=== PATIENT | female | born 1935 | race Caucasian/White ===

== ENCOUNTER 2017-01-19 14:03 | Inpatient (IN) | payer MEDICARE, OTHER ==
[2017-01-19] MEDS ORDERED: Morphine INJ* 2 MG/ML 1 ML CARPUJECT IV ONE (16:57)
[2017-01-19] MEDS ORDERED: NS 0.9% 1000 ML* 2,000 ML IV ONE (16:57)
[2017-01-19 17:40] LABS: Hematocrit 30 % (35-47); Hemoglobin 9.2 g/dl (12.0-16.0); Mean Corpuscular HGB Conc 31 g/dl (31-36); Mean Corpuscular Hemoglobin 22 pg (27-31); Mean Corpuscular Volume 69 fL (80-97); Mean Platelet Volume 7 um3 (7.4-10.4); Red Blood Count 4.27 10^6/ul (4.0-5.4); Red Cell Distribution Width 19 % (10.5-15); White Blood Count 25.9 10^3/ul (3.5-10.8)
[2017-01-19 17:41] LABS: Comments Flag Yes
[2017-01-19 17:42] LABS: Add Diff/Slide Review? Slide Review Added
[2017-01-19 17:56] LABS: Albumin 3.8 g/dL (3.2-5.2); BUN/Creatinine Ratio 25.4 (8-20); Calcium 9.6 mg/dL (8.6-10.3); EGFR African American 56.3 (>60); EGFR Non-African American 43.7 (>60); Total Bilirubin 0.5 mg/dL (0.2-1.0); Total Protein 7.8 g/dL (6.4-8.9); Troponin I 0.03 ng/mL (<0.04)
[2017-01-19] MEDS ORDERED: Iodixanol* (CONTRAST) 320 MG/ML 100 ML SDV IV ONE (17:57)
[2017-01-19 17:58] LABS: Potassium 2.3 mmol/L (3.5-5.0)
[2017-01-19] MEDS ORDERED: Ondansetron INJ* 2 MG/ML VIAL IV ONE (18:55)
[2017-01-19] MEDS ORDERED: Ondansetron INJ* 2 MG/ML VIAL ONE (18:57)
[2017-01-19] MEDS: KCL 10 MEQ/50 ML IVPREMIX* 10 MEQ/50 ML BAG IV SCH ×3 (19:01→23:13)
[2017-01-19] MEDS ORDERED: Potassium Chlor TAB* 20 MEQ TAB.ER PO ONE (19:42)
[2017-01-19] MEDS ORDERED: NS 0.9% 1000 ML* 1,000 ML IV SCH (19:45)
[2017-01-19] MEDS ORDERED: hydrALAZINE IV* 20 MG/ML VIAL IV SLOW PU ONE (19:47)
--- NOTE | 2017-01-19 19:47 | RAD ---
indication: Neck pain and vomiting after a fall COMPARISON: None A CT scan of the brain and c-spine was performed without intravenous contrast enhancement. Contiguous axial sections were obtained from the lung apices through the vertex. BRAIN: The ventricles, cisterns and sulci exhibit age-appropriate involutional changes. There is mild periventricular and subcortical white matter hypoattenuation most consistent with chronic microvascular disease. No significant focal abnormality or mass effect is seen. The fofana-white differentiation is adequately maintained. There is calcified atherosclerosis of the vertebral arteries and petrous carotid arteries. There is no evidence for intracranial hemorrhage. No significant bony abnormality is present. The mastoid air cells are hypoplastic bilaterally but there is no definite mastoid air cell effusion. The visualized paranasal sinuses are clear. C-SPINE: On the sagittal plane images there is straightening of the normal cervical lordosis. Multilevel degenerative changes of the cervical spine include loss of intervertebral disc height and exuberant marginal osteophyte formation. This most severely affect C5/C6 and C6/C7. There is uncovertebral hypertrophy also predominantly at C5/C6 and C6/C7. There is no hyperdense material in the cervical canal to indicate hemorrhage. The visualized musculature and soft tissues are normal. There is no gross lymphadenopathy visualized. There is coarse atherosclerotic calcification at the bilateral carotid bulbs. The visualized portion of the lung apices are clear. IMPRESSION: 1. No calvarial fracture or acute intracranial hemorrhage. 2. No acute fracture or dislocation of the cervical spine. 3. There are age-appropriate chronic appearing and degenerative changes involving the brain and C-spine described in the body the report.
[2017-01-19] MEDS ORDERED: Ibuprofen TAB* 600 MG PO PRN (19:49)
--- NOTE | 2017-01-19 20:03 | RAD ---
INDICATION: Sternal tenderness and left rib pain after a fall. COMPARISON: None TECHNIQUE: Axial source images of the chest were acquired after the injection of 80 mL of Visipaque 320 intravenous contrast from just above the lung apices to the base of the diaphragm. Coronal and sagittal reconstructed images were acquired. FINDINGS: The heart is normal in size. There is no evidence of pericardial effusion. There is no evidence of aortic aneurysm or dissection. There is calcification at the mitral valve, coronary arteries and at the arch of the aorta. There is no mediastinal, hilar, or axillary lymphadenopathy. At the lateral aspect of the right upper lobe (image 22 of 54) there is a 1.6 cm groundglass density. This is immediately adjacent to a rib fracture at this site. At the lateral aspect of the right lower lobe (image 41) there is a 3 mm pulmonary nodule. There are hypoventilatory changes in the bilateral lung bases. The lungs are otherwise grossly clear. Multilevel degenerative changes of the thoracic spine includes loss of intervertebral disc height and marginal osteophyte formation there is chronic appearing compression deformity of the T10 vertebral body. The sternum appears to be intact. There is a chronic appearing deformity at the lateral aspect of the fifth right rib in close proximity to an area of groundglass density the lung. To a lesser extent there is a similar deformity of the lateral right sixth rib. No grossly displaced acute rib fractures are identified. There is circumferential thickening of the lower esophagus measuring up to 8 mm in thickness (image 23 for example). IMPRESSION: 1. There are subacute to chronic appearing rib fractures involving the lateral right fifth and sixth ribs. Please correlate to physical examination. 2. Immediately subjacent to these distorted ribs is a 1.6 cm focus of groundglass density in the lateral aspect of the right upper lobe. Potentially this represents pulmonary contusion from prior traumatic injury. Less likely this could be a groundglass lesion secondary to infection, inflammation or neoplasm. 3. Circumferential thickening of the lower esophagus up to 8 mm in thickness. Please correlate to signs and symptoms of esophagitis. A potential esophageal neoplasm is not excluded on this imaging alone.
--- NOTE | 2017-01-19 20:36 | RAD ---
INDICATION: Left shoulder pain after a fall COMPARISON: None. TECHNIQUE: 5 views of the left shoulder were obtained. FINDINGS: The adequately corticated bones are in normal alignment. Degenerative changes of the glenohumeral joint include mild sclerotic change of the bony surface of the glenoid.. No fracture, dislocation or focal bony abnormality is seen. IMPRESSION: DEGENERATIVE CHANGES OF THE LEFT SHOULDER WITHOUT RADIOGRAPHICALLY APPARENT FRACTURE OR DISLOCATION. If the patient's symptoms persist, follow-up imaging is recommended.
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
[2017-01-19] MEDS: Ciprofloxacin TAB* 500 MG PO SCH (22:55)
[2017-01-19] MEDS: Ondansetron INJ* 2 MG/ML VIAL IV PRN (22:55)
[2017-01-19] MEDS: Heparin VIAL(*) 5000 UNITS/ML VIAL (FIVE THOUSAND) SUBCUT SCH (22:55)
[2017-01-19] MEDS: Acetaminophen TAB* 325 MG PO PRN (22:55)
[2017-01-20 06:13] LABS: Hematocrit 25 % (35-47); Hemoglobin 7.7 g/dl (12.0-16.0); Mean Corpuscular HGB Conc 31 g/dl (31-36); Mean Corpuscular Hemoglobin 22 pg (27-31); Mean Platelet Volume 7 um3 (7.4-10.4); Red Blood Count 3.56 10^6/ul (4.0-5.4); Red Cell Distribution Width 19 % (10.5-15)
[2017-01-20 06:14] LABS: Comments Flag Yes
[2017-01-20 06:15] LABS: Mean Corpuscular Volume 70 fL (80-97)
[2017-01-20] MEDS: Heparin VIAL(*) 5000 UNITS/ML VIAL (FIVE THOUSAND) SUBCUT SCH ×3 (06:16→21:36)
[2017-01-20 06:40] LABS: Anion Gap 11 mmol/L (2-11); BUN/Creatinine Ratio 30.2 (8-20); Blood Urea Nitrogen 26 mg/dL (6-24); CO2 Carbon Dioxide 17 mmol/L (22-32); Calcium 8.2 mg/dL (8.6-10.3); Chloride 103 mmol/L (101-111); Glucose 116 mg/dL (70-100); Potassium 3.3 mmol/L (3.5-5.0); Sodium 131 mmol/L (133-145)
[2017-01-20 06:43] LABS: Total Iron Binding Capacity 302 mcg/dL (250-450); Transferrin 216 mg/dL (203-362)
[2017-01-20 06:46] LABS: Iron < 15 ug/dL (50-212)
[2017-01-20 07:05] LABS: Ferritin 24.8 ng/mL (11-307)
[2017-01-20 07:26] LABS: Urine Bacteria Absent (Absent); Urine Bilirubin Negative (Negative); Urine Glucose Negative (Negative); Urine Nitrite Negative (Negative)
--- NOTE | 2017-01-20 07:51 | PN ---
Subjective - Subjective Reason for Note: Progress Note History: I have reviewed Xochitl Ma's presentation with the patient and Dr. Manuel Martínez's history and physical. The main discrepancy is that she denies loss of consciousness after her first fall, whereas the narrative supplemented by her son suggested she did. I note she had vomiting for 2 days afterwards. Today she continues to have pain in her left shoulder and arm. Her head is tender, but she has no headache. She denies any fatigue, altered cognition and wonders if she can go home. She denies fevers, sweats, cough, sputum, urinary symptoms. She denies any infection. She does have anorexia Active Problems: Active Problems Acute neutrophilia (Acute) D72.828 Concussion (Acute) S06.0X9A Electrolyte abnormality (Acute) E87.8 Head injury (Acute) S09.90XA History of falling (Acute) Z91.81 Injury of left shoulder (Acute) S49.92XA Irregular heart rhythm (Acute) I49.9 Right rib fracture (Acute) S22.31XA Thickening of esophagus (Acute) K22.8 Troponin I above reference range (Acute) R74.8 Vomiting (Acute) R11.10 Essential hypertension (Chronic) I10 Hypercholesterolemia (Chronic) E78.00 Type 2 diabetes mellitus (Chronic) Current Medications: Current Medications Acetaminophen (Tylenol Tab*) 650 mg PO Q6H PRN PRN Reason: PAIN Last Admin: 01/19/17 22:55 Dose: 650 mg Amlodipine Besylate (Norvasc Tab*) 10 mg PO DAILY [facility] Ciprofloxacin (Cipro Tab*) 500 mg PO Q24H [facility] Last Admin: 01/19/17 22:55 Dose: 500 mg Heparin Sodium (Porcine) (Heparin Vial(*)) 5,000 units SUBCUT Q8HR [facility] Last Admin: 01/20/17 06:16 Dose: 5,000 units Sodium Chloride (Ns 0.9% 1000 Ml*) 1,000 mls @ 125 mls/hr IV PER RATE [facility] Stop: 01/21/17 03:44 Last Admin: 01/20/17 02:42 Dose: 125 mls/hr Ibuprofen (Motrin Tab*) 600 mg PO Q8H PRN PRN Reason: PAIN Ondansetron HCl (Zofran Inj*) 4 mg IV Q4H PRN PRN Reason: NAUSEA/VOMITING Last Admin: 01/19/17 22:55 Dose: 4 mg - Review of Systems Constitutional Symptoms: No: Fatigue, Fever, Night Sweats Dermatology: Rash: No Eyes: Negative: Change in Vision, Double Vision Pulmonary: Negative: Cough, Sputum, Respiratory Distress, Shortness of Breath Cardiology: Negative: Chest Pain, Palpitations, Swelling of Ankles Gastroenterology: Positive: Anorexia Negative: Abdominal Pain, Nausea, Vomiting, Constipation, Diarrhea, Change in Bowel Habits Genital - Urinary: Negative: Dysuria, Polyuria Home Medications: Home Medications Medication Instructions Recorded Confirmed Type Ibuprofen TAB* [Motrin TAB*] 600 mg PO BID 10/29/12 01/19/17 History Allergies: Allergies Allergy/AdvReac Type Severity Reaction Status Date / Time No Known Allergies Allergy Verified 10/29/12 11:40 Objective - Vital Signs Vital Signs: Vital Signs 01/19/17 01/19/17 01/19/17 20:24 21:00 21:28 Temperature Pulse Rate 104 108 Respiratory 24 28 Rate Blood Pressure 143/59 (mmHg) O2 Sat by Pulse 96 96 Oximetry 01/19/17 01/19/17 01/20/17 22:00 22:14 04:44 Temperature 98.3 F 98.1 F Pulse Rate 88 98 Respiratory 18 16 Rate Blood Pressure 150/54 141/63 (mmHg) O2 Sat by Pulse 98 99 98 Oximetry - Intake and Output Intake and Output: Intake & Output 01/17/17 01/18/17 01/19/17 01/20/17 11:59 11:59 11:59 11:59 Intake Total 876 Balance 876 Weight 129 lb 9.6 oz Intake: IV Fluids 636 NS (0.9%) 516 Oral 240 Other: Estimated Void Medium # Bowel Movements 0 # Voids 3 ADLs: Meal Record Start: 01/19/17 20: 55 Freq: DAILY@0900,1400,1800 Status: Active Created 01/19/17 20:55 System (Rec: 01/19/17 20:55 System [id number]) Intake and Output Start: 01/19/17 14: 13 Freq: Status: Active Created 01/19/17 14:13 System (Rec: 01/19/17 14:13 System [id number]) Intake and Output Start: 01/19/17 20: 55 Freq: DAILY@0600,1400,2200 Status: Active Created 01/19/17 20:55 System (Rec: 01/19/17 20:55 System [id number]) Document 01/20/17 05:20 [id number] (Rec: 01/20/17 05:21 [id number]) - Physical Exam General Physical Exam Comment: She has tenderness on her scalp from injury. She is not using her left arm. General: No Cyanosis, Yes Anemia, No Jaundice, No Clubbing Skin: Normal: Rash Lungs and Chest: Yes: Chest Expansion Full, Chest Expansion Symetrica, Percussion Note Resonant, Vessicular Breath Sounds. No: Crackles, Wheezes, Respiratory Distress, Use of Accessory Muscles Heart Rate and Rhythm: Regular Additional Cardiovascular: Yes: Normal Heart Sounds. No: Heart Murmur, Carotid Bruits, Pedal Edema Abdominal Exam: Yes: Soft, Bowel Sounds Present. No: Distention, Abdominal Mass , Hepatomegaly, Abdominal Tenderness - Extremities Cranial Nerves II-XII Intact: Yes Limbs: Normal Power, Normal Tone, Normal Coordination - Neuro Orientation: A/O x3 Speech: Normal Results - Results Lab Results: Laboratory Results - last 24 hr 01/19/17 01/19/17 01/19/17 21:04 21:04 22:25 WBC RBC Hgb Hct MCV MCH MCHC RDW Plt Count MPV Neut % (Auto) Lymph % (Auto) [place] % (Auto) Eos % (Auto) Baso % (Auto) Absolute Neuts (auto) Absolute Lymphs (auto) Absolute Monos (auto) Absolute Eos (auto) Absolute Basos (auto) Absolute Nucleated RBC Nucleated RBC % Sodium Potassium Chloride Carbon Dioxide Anion Gap BUN Creatinine Est GFR ( Amer) Est GFR (Non-Af Amer) BUN/Creatinine Ratio Glucose Lactic Acid 0.9 Calcium Iron TIBC % Saturation Unsat Iron Binding Ferritin Troponin I 0.03 Urine Color Yellow Urine Appearance Cloudy Urine pH 6.0 Ur Specific [place] 1.045 H Urine Protein 2+(100 mg/dl) H Urine Ketones 1+ H Urine Blood Negative Urine Nitrate Negative Urine Bilirubin Negative Urine Urobilinogen Negative Ur Leukocyte Esterase 1+ H Urine WBC (Auto) 2+(11-20/hpf) H Urine RBC (Auto) 1+(3-5/hpf) H Ur Squamous Epith Cells Present H Urine Bacteria Absent Urine Glucose Negative 01/20/17 01/20/17 01/20/17 05:54 05:54 05:54 WBC 20.0 H RBC 3.56 L Hgb 7.7 L Hct 25 L MCV 70 L MCH 22 L MCHC 31 RDW 19 H Plt Count 432 MPV 7 L Neut % (Auto) 86.6 H Lymph % (Auto) 6.7 L [place] % (Auto) 6.4 Eos % (Auto) 0 Baso % (Auto) 0.3 Absolute Neuts (auto) 17.3 H Absolute Lymphs (auto) 1.3 Absolute Monos (auto) 1.3 H Absolute Eos (auto) 0 Absolute Basos (auto) 0.1 Absolute Nucleated RBC 0 Nucleated RBC % 0 Sodium 131 L Potassium 3.3 L Chloride 103 Carbon Dioxide 17 L Anion Gap 11 BUN 26 H Creatinine 0.86 Est GFR ( Amer) 81.0 Est GFR (Non-Af Amer) 63.0 BUN/Creatinine Ratio 30.2 H Glucose 116 H Lactic Acid Calcium 8.2 L Iron < 15 L TIBC 302 % Saturation 5 L Unsat Iron Binding [phone] Ferritin 24.8 Troponin I 0.05 H* Urine Color Urine Appearance Urine pH Ur Specific [place] Urine Protein Urine Ketones Urine Blood Urine Nitrate Urine Bilirubin Urine Urobilinogen Ur Leukocyte Esterase Urine WBC (Auto) Urine RBC (Auto) Ur Squamous Epith Cells Urine Bacteria Urine Glucose Radiology Results: Patient Name: SIMONE MA Medical Record#: [id number] Ordering Physician: Chuck Alvarado MD Acct.#: [id number] : 1935 Age: 81 Sex: F Location: EMERGENCY DEPARTMENT Exam Date: 01/19/171654 ADM Status: REG ER Order Information: CT CHEST W Accession Number: [id number] CPT: 69479 INDICATION: Sternal tenderness and left rib pain after a fall. COMPARISON: None TECHNIQUE: Axial source images of the chest were acquired after the injection of 80 mL of Visipaque 320 intravenous contrast from just above the lung apices to the base of the diaphragm. Coronal and sagittal reconstructed images were acquired. FINDINGS: The heart is normal in size. There is no evidence of pericardial effusion. There is no evidence of aortic aneurysm or dissection. There is calcification at the mitral valve, coronary arteries and at the arch of the aorta. There is no mediastinal, hilar, or axillary lymphadenopathy. At the lateral aspect of the right upper lobe (image 22 of 54) there is a 1.6 cm groundglass density. This is immediately adjacent to a rib fracture at this site. At the lateral aspect of the right lower lobe (image 41) there is a 3 mm pulmonary nodule. There are hypoventilatory changes in the bilateral lung bases. The lungs are otherwise grossly clear. Multilevel degenerative changes of the thoracic spine includes loss of intervertebral disc height and marginal osteophyte formation there is chronic appearing compression deformity of the T10 vertebral body. The sternum appears to be intact. There is a chronic appearing deformity at the lateral aspect of the fifth right rib in close proximity to an area of groundglass density the lung. To a lesser extent there is a similar deformity of the lateral right sixth rib. No grossly displaced acute rib fractures are identified. There is circumferential thickening of the lower esophagus measuring up to 8 mm in thickness (image 23 for example). IMPRESSION: 1. There are subacute to chronic appearing rib fractures involving the lateral right fifth and sixth ribs. Please correlate to physical examination. 2. Immediately subjacent to these distorted ribs is a 1.6 cm focus of groundglass density in the lateral aspect of the right upper lobe. Potentially this represents pulmonary contusion from prior traumatic injury. Less likely this could be a groundglass lesion secondary to infection, inflammation or neoplasm. 3. Circumferential thickening of the lower esophagus up to 8 mm in thickness. Please correlate to signs and symptoms of esophagitis. A potential esophageal neoplasm is not excluded on this imaging alone. <Electronically signed by Sam Vanegas MD in [place]> 01/19/171958 Dictated By: Sam Vanegas MD Dictated Date/Time: 01/19/171958 Transcribed Date/Time: 01/19/171950 1 of 2 Patient Name: SIMONE MA Medical Record#: [id number] Ordering Physician: Chuck Alvarado MD Acct.#: [id number] : 1935 Age: 81 Sex: F Location: EMERGENCY DEPARTMENT Exam Date: 01/19/171654 ADM Status: REG ER Order Information: CT SPINE CERVICAL W/O Accession Number: [id number] CPT: 19869 indication: Neck pain and vomiting after a fall COMPARISON: None A CT scan of the brain and c-spine was performed without intravenous contrast enhancement. Contiguous axial sections were obtained from the lung apices through the vertex. BRAIN: The ventricles, cisterns and sulci exhibit age-appropriate involutional changes. There is mild periventricular and subcortical white matter hypoattenuation most consistent with chronic microvascular disease. No significant focal abnormality or mass effect is seen. The fofana-white differentiation is adequately maintained. There is calcified atherosclerosis of the vertebral arteries and petrous carotid arteries. There is no evidence for intracranial hemorrhage. No significant bony abnormality is present. The mastoid air cells are hypoplastic bilaterally but there is no definite mastoid air cell effusion. The visualized paranasal sinuses are clear. C-SPINE: On the sagittal plane images there is straightening of the normal cervical lordosis. Multilevel degenerative changes of the cervical spine include loss of intervertebral disc height and exuberant marginal osteophyte formation. This most severely affect C5 /C6 and C6/C7. There is uncovertebral hypertrophy also predominantly at C5/C6 and C6/C7. There is no hyperdense material in the cervical canal to indicate hemorrhage. The visualized musculature and soft tissues are normal. There is no gross lymphadenopathy visualized. There is coarse atherosclerotic calcification at the bilateral carotid bulbs. The visualized portion of the lung apices are clear. IMPRESSION: 1. No calvarial fracture or acute intracranial hemorrhage. 2. No acute fracture or dislocation of the cervical spine. 3. There are age-appropriate chronic appearing and degenerative changes involving the brain and C-spine described in the body the report. <Electronically signed by Sam Vanegas MD in [facility]> 01/19/171942 Dictated By: Sam Vanegas MD Dictated Date/Time: 01/19/171942 Transcribed Date/Time: 01/19/171935 1 of 2 Patient Name: SIMONE MA Medical Record#: [id number] Ordering Physician: Chuck Alvarado MD Acct.#: [id number] : 1935 Age: 81 Sex: F Location: [address] [place] [address] MEDICAL Exam Date: 01/19/171655 ADM Status: ADM Cathi Order Information: SHOULDER LEFT 2+ VWS Accession Number: [id number] CPT: 52947 INDICATION: Left shoulder pain after a fall COMPARISON: None. TECHNIQUE: 5 views of the left shoulder were obtained. FINDINGS: The adequately corticated bones are in normal alignment. Degenerative changes of the glenohumeral joint include mild sclerotic change of the bony surface of the glenoid.. No fracture, dislocation or focal bony abnormality is seen. IMPRESSION: DEGENERATIVE CHANGES OF THE LEFT SHOULDER WITHOUT RADIOGRAPHICALLY APPARENT FRACTURE OR DISLOCATION. If the patient's symptoms persist, follow-up imaging is recommended. <Electronically signed by Sam Vanegas MD in [facility]> 01/19/172032 Dictated By: Sam Vanegas MD Dictated Date/Time: 01/19/172032 Transcribed Date/Time: 01/19/172031 Copy to: CC:Jamey Goncalves MD; Chuck Alvarado MD; Manuel Martínez MD Imaging - [facility] Imaging - [place] [facility] [address] [place] [address] ph [phone]) ph ([phone]) ph ([phone]) 1 of EKG Report: KS 100 QTc 502 QRS 11 Irregular rhythm with narrow complexes. She has abnormal repolarization and prolonged QTc. There appear to be P waves. This is a sinus arrhythmia. Assessment - Problem List Assessment: Patient Problems Acute neutrophilia (Acute) Concussion (Acute) Electrolyte abnormality (Acute) Head injury (Acute) History of falling (Acute) Injury of left shoulder (Acute) Irregular heart rhythm (Acute) Right rib fracture (Acute) Thickening of esophagus (Acute) Troponin I above reference range (Acute) Vomiting (Acute) Essential hypertension (Chronic) Hypercholesterolemia (Chronic) Type 2 diabetes mellitus (Chronic) Plan: Concussion (Acute)Head injury (Acute)History of falling (Acute) She has had 2 falls, both of which were mechanical. She sustained injuries during her first fall. The second fall she describes as minor. I observed her walking to and fro the bathroom - she managed with a walker, but was very unsteady during her transfer. She has no focal signs of stroke. The vomiting following her fall indicates a concussion. Injury of left shoulder (Acute) There is no fracture, but this is sore. She is not using her left arm. Irregular heart rhythm (Acute) I think this is a sinus dysrhythmia - I can see P waves. I will repeat her EKG Right rib fracture (Acute) She has little pain - there may be a lung contusion Thickening of esophagus (Acute) She has had weight loss - on 06/10/2016 she was 135 lbs. I will check a CEA Neutrophilia: She has a markedly elevated WBC - this came down a little overnight. This may be a response to her injuries, or reflect an underlying infection. Electrolyte abnormality: This likely is due to her vomiting and anorexia - it is correcting. She has no focal symptoms. A urine sample has not been taken. She is receiving empiric therapy with ciprofloxacin Troponin I above reference range (Acute) This is a minor elevation. She has no cardiac symptoms. I suspect this is a result of her fall Vomiting (Acute) This has ceased, but she continues to have anorexia. Essential hypertension (Chronic) Her BP is controlled Hypercholesterolemia (Chronic) secondary diagnosis Type 2 diabetes mellitus (Chronic) This is normal this morning - she is usually not on any medications for this Resuscitation status: She wishes to be full code. I discussed the above with the patient and I called her son Manuel, but he didn 't order picker/assembler. She requires at least another 24 hours of acute hospital admission owing to electrolyte abnormalities, cardiac abnormalities.
[2017-01-20] MEDS: Ondansetron INJ* 2 MG/ML VIAL IV PRN (08:53)
[2017-01-20] MEDS: Acetaminophen TAB* 325 MG PO PRN ×3 (08:54→21:36)
[2017-01-20] MEDS: amLODIPine TAB* 5 MG PO SCH (08:54)
--- NOTE | 2017-01-20 08:56 | RAD ---
HISTORY: Left elbow injury COMPARISONS: None VIEWS: 3, Frontal, lateral, and oblique views of the left elbow FINDINGS: The study is somewhat technically limited. BONE DENSITY: Normal. BONES: There is no displaced fracture. JOINTS: There is no arthropathy. ALIGNMENT: There is no dislocation. SOFT TISSUES: Unremarkable. OTHER FINDINGS: None. IMPRESSION: NO ACUTE OSSEOUS INJURY. IF SYMPTOMS PERSIST, RECOMMEND REPEAT IMAGING.
[2017-01-20 12:16] LABS: Urine Bacteria Absent (Absent); Urine Bilirubin Negative (Negative); Urine Glucose Negative (Negative); Urine Nitrite Negative (Negative)
[2017-01-20] MEDS: NS 0.9% 1000 ML* 1,000 ML IV SCH ×2 (13:00→23:55)
[2017-01-20] MEDS: Ciprofloxacin TAB* 500 MG PO SCH (21:36)
[2017-01-21] MEDS: Heparin VIAL(*) 5000 UNITS/ML VIAL (FIVE THOUSAND) SUBCUT SCH ×2 (06:06→17:05)
[2017-01-21 06:07] LABS: Hematocrit 22 % (35-47); Hemoglobin 6.7 g/dl (12.0-16.0); Mean Corpuscular HGB Conc 31 g/dl (31-36); Mean Corpuscular Hemoglobin 22 pg (27-31); Mean Platelet Volume 6 um3 (7.4-10.4); Red Blood Count 3.05 10^6/ul (4.0-5.4); Red Cell Distribution Width 19 % (10.5-15); White Blood Count 12.4 10^3/ul (3.5-10.8)
[2017-01-21 06:18] LABS: Comments Flag Yes; Mean Corpuscular Volume 71 fL (80-97)
[2017-01-21 06:20] LABS: Add Diff/Slide Review? Slide Review Added
[2017-01-21 06:23] LABS: Albumin 2.8 g/dL (3.2-5.2); BUN/Creatinine Ratio 19.5 (8-20); C Reactive Protein 65.06 mg/L (< 5.00); Calcium 8.3 mg/dL (8.6-10.3); Direct Bilirubin 0.1 mg/dL (0.03-0.18); EGFR African American 92.1 (>60); EGFR Non-African American 71.6 (>60); Indirect Bilirubin 0.2 mg/dL (0.3-1.0); Potassium 3.5 mmol/L (3.5-5.0); Total Bilirubin 0.3 mg/dL (0.2-1.0); Total Protein 5.8 g/dL (6.4-8.9)
--- NOTE | 2017-01-21 07:51 | PN ---
Subjective - Subjective Reason for Note: Discharge Note Active Problems: Active Problems Acute neutrophilia (Acute) D72.828 Concussion (Acute) S06.0X9A Electrolyte abnormality (Acute) E87.8 Head injury (Acute) S09.90XA History of falling (Acute) Z91.81 Injury of left shoulder (Acute) S49.92XA Irregular heart rhythm (Acute) I49.9 Right rib fracture (Acute) S22.31XA Thickening of esophagus (Acute) K22.8 Troponin I above reference range (Acute) R74.8 Vomiting (Acute) R11.10 Essential hypertension (Chronic) I10 Hypercholesterolemia (Chronic) E78.00 Type 2 diabetes mellitus (Chronic) Current Medications: Current Medications Acetaminophen (Tylenol Tab*) 650 mg PO Q6H PRN PRN Reason: PAIN Last Admin: 01/20/17 21:36 Dose: 650 mg Amlodipine Besylate (Norvasc Tab*) 10 mg PO DAILY [facility] Last Admin: 01/20/17 08:54 Dose: 10 mg Ciprofloxacin (Cipro Tab*) 500 mg PO Q24H [facility] Last Admin: 01/20/17 21:36 Dose: 500 mg Heparin Sodium (Porcine) (Heparin Vial(*)) 5,000 units SUBCUT Q8HR [facility] Last Admin: 01/21/17 06:06 Dose: 5,000 units Sodium Chloride (Ns 0.9% 1000 Ml*) 1,000 mls @ 70 mls/hr IV PER RATE [facility] Stop: 01/21/17 22:37 Last Admin: 01/20/17 23:55 Dose: 70 mls/hr Ibuprofen (Motrin Tab*) 600 mg PO Q8H PRN PRN Reason: PAIN Last Admin: 01/20/17 20:15 Dose: 600 mg Ondansetron HCl (Zofran Inj*) 4 mg IV Q4H PRN PRN Reason: NAUSEA/VOMITING Last Admin: 01/20/17 08:53 Dose: 4 mg Home Medications: Home Medications Medication Instructions Recorded Confirmed Type Ibuprofen TAB* [Motrin TAB*] 600 mg PO BID 10/29/12 01/19/17 History Allergies: Allergies Allergy/AdvReac Type Severity Reaction Status Date / Time No Known Allergies Allergy Verified 10/29/12 11:40 Objective - Vital Signs Vital Signs: Vital Signs 01/20/17 01/20/17 01/20/17 15:23 20:00 20:23 Temperature 98.3 F 98.3 F Pulse Rate 102 98 Respiratory 18 16 16 Rate Blood Pressure 150/59 149/67 (mmHg) O2 Sat by Pulse 97 97 97 Oximetry 01/20/17 01/21/17 23:24 05:57 Temperature 98.0 F 97.9 F Pulse Rate 93 86 Respiratory 16 16 Rate Blood Pressure 123/97 146/57 (mmHg) O2 Sat by Pulse 96 98 Oximetry - Intake and Output Intake and Output: Intake & Output 01/18/17 01/19/17 01/20/17 01/21/17 11:59 11:59 11:59 11:59 Intake Total 470 2873 Output Total 3750 Balance 470 -877 Intake: IV Fluids 2033 NS (0.9%) 1353 Oral 470 840 Output: Urine 3750 Other: # Bowel Movements 0 Estimated Stool Amount Small ADLs: Meal Record Start: 01/19/17 20: 55 Freq: DAILY@0900,1400,1800 Status: Active Created 01/19/17 20:55 System (Rec: 01/19/17 20:55 System [id number]) Document 01/20/17 09:00 [id number] (Rec: 01/20/17 10:42 [id number] MED-C09) Document 01/20/17 14:00 [id number] (Rec: 01/20/17 14:28 [id number] MED-C11) Document 01/20/17 18:00 [id number] (Rec: 01/20/17 18:40 [id number] MED-C11) Intake and Output Start: 01/19/17 14: 13 Freq: Status: Active Created 01/19/17 14:13 System (Rec: 01/19/17 14:13 System ED-C19) Intake and Output Start: 01/19/17 20: 55 Freq: DAILY@0600,1400,2200 Status: Active Created 01/19/17 20:55 System (Rec: 01/19/17 20:55 System MED-M02) Document 01/20/17 05:20 [id number] (Rec: 01/20/17 05:21 [id number] MEDL-C01) Document 01/20/17 14:00 [id number] (Rec: 01/20/17 14:28 [id number] MED-C11) Document 01/20/17 22:00 [id number] (Rec: 01/20/17 22:30 [id number] [facility]-C11) Document 01/21/17 04:16 [id number] (Rec: 01/21/17 04:16 [id number] [facility]-C04) Results - Results Lab Results: Laboratory Results - last 24 hr 01/20/17 01/20/17 01/21/17 11:55 16:46 05:59 WBC 12.4 H RBC 3.05 L Hgb 6.7 L Hct 22 L MCV 71 L MCH 22 L MCHC 31 RDW 19 H Plt Count 392 MPV 6 L Neut % (Auto) 80.2 Lymph % (Auto) 12.0 L [place] % (Auto) 7.4 Eos % (Auto) 0.2 Baso % (Auto) 0.2 Absolute Neuts (auto) 9.9 H Absolute Lymphs (auto) 1.5 Absolute Monos (auto) 0.9 H Absolute Eos (auto) 0 Absolute Basos (auto) 0 Absolute Nucleated RBC 0 Nucleated RBC % 0 Sodium Potassium Chloride Carbon Dioxide Anion Gap BUN Creatinine Est GFR ( Amer) Est GFR (Non-Af Amer) BUN/Creatinine Ratio Glucose POC Glucose (mg/dL) 243 H Calcium Total Bilirubin Direct Bilirubin Indirect Bilirubin AST ALT Alkaline Phosphatase C-Reactive Protein Total Protein Albumin Globulin Albumin/Globulin Ratio Urine Color Yellow Urine Appearance Cloudy Urine pH 6.0 Ur Specific [place] 1.023 Urine Protein 1+(30 mg/dl) H Urine Ketones 1+ H Urine Blood Negative Urine Nitrate Negative Urine Bilirubin Negative Urine Urobilinogen Negative Ur Leukocyte Esterase 3+ H Urine WBC (Auto) 3+(>20/hpf) H Urine RBC (Auto) 1+(3-5/hpf) H Ur Squamous Epith Cells Present H Urine Bacteria Absent Hyaline Casts Present H Urine Glucose Negative 01/21/17 05:59 WBC RBC Hgb Hct MCV MCH MCHC RDW Plt Count MPV Neut % (Auto) Lymph % (Auto) [place] % (Auto) Eos % (Auto) Baso % (Auto) Absolute Neuts (auto) Absolute Lymphs (auto) Absolute Monos (auto) Absolute Eos (auto) Absolute Basos (auto) Absolute Nucleated RBC Nucleated RBC % Sodium 136 Potassium 3.5 Chloride 110 Carbon Dioxide 21 L Anion Gap 5 BUN 15 Creatinine 0.77 Est GFR ( Amer) 92.1 Est GFR (Non-Af Amer) 71.6 BUN/Creatinine Ratio 19.5 Glucose 117 H POC Glucose (mg/dL) Calcium 8.3 L Total Bilirubin 0.30 Direct Bilirubin 0.10 Indirect Bilirubin 0.2 L AST 18 ALT 11 Alkaline Phosphatase 37 C-Reactive Protein 65.06 H Total Protein 5.8 L Albumin 2.8 L Globulin 3.0 Albumin/Globulin Ratio 0.9 L Urine Color Urine Appearance Urine pH Ur Specific [place] Urine Protein Urine Ketones Urine Blood Urine Nitrate Urine Bilirubin Urine Urobilinogen Ur Leukocyte Esterase Urine WBC (Auto) Urine RBC (Auto) Ur Squamous Epith Cells Urine Bacteria Hyaline Casts Urine Glucose Assessment - Problem List Assessment: Patient Problems Acute neutrophilia (Acute) Concussion (Acute) Electrolyte abnormality (Acute) Head injury (Acute) History of falling (Acute) Injury of left shoulder (Acute) Irregular heart rhythm (Acute) Right rib fracture (Acute) Thickening of esophagus (Acute) Troponin I above reference range (Acute) Vomiting (Acute) Essential hypertension (Chronic) Hypercholesterolemia (Chronic) Type 2 diabetes mellitus (Chronic)
--- NOTE | 2017-01-21 07:57 | PN ---
Subjective - Subjective Reason for Note: Discharge Note History: DISCHARGE SUMMARY She is alert and oriented this morning - though she didn't recognize me initially. She continues to have some pain - particularly when she lifts her left shoulder. Otherwise, she denies other symptoms. She has been eating/ drinking. I have stopped her IVF. She is anemic. She has also lost weight - her response to that is that this is deliberate as she weighed too much. She denies blood in her stool. Active Problems: Active Problems Acute neutrophilia (Acute) D72.828 Concussion (Acute) S06.0X9A Electrolyte abnormality (Acute) E87.8 Head injury (Acute) S09.90XA History of falling (Acute) Z91.81 Injury of left shoulder (Acute) S49.92XA Iron deficiency anemia (Acute) D50.9 Irregular heart rhythm (Acute) I49.9 Right rib fracture (Acute) S22.31XA Thickening of esophagus (Acute) K22.8 Troponin I above reference range (Acute) R74.8 UTI (urinary tract infection) (Acute) Vomiting (Acute) R11.10 Essential hypertension (Chronic) I10 Hypercholesterolemia (Chronic) E78.00 Type 2 diabetes mellitus (Chronic) Current Medications: Current Medications Acetaminophen (Tylenol Tab*) 650 mg PO Q6H PRN PRN Reason: PAIN Last Admin: 01/20/17 21:36 Dose: 650 mg Amlodipine Besylate (Norvasc Tab*) 10 mg PO DAILY [facility] Last Admin: 01/20/17 08:54 Dose: 10 mg Ciprofloxacin (Cipro Tab*) 500 mg PO Q24H [facility] Last Admin: 01/20/17 21:36 Dose: 500 mg Heparin Sodium (Porcine) (Heparin Vial(*)) 5,000 units SUBCUT Q8HR [facility] Last Admin: 01/21/17 06:06 Dose: 5,000 units Sodium Chloride (Ns 0.9% 1000 Ml*) 1,000 mls @ 70 mls/hr IV PER RATE [facility] Stop: 01/21/17 22:37 Last Admin: 01/20/17 23:55 Dose: 70 mls/hr Ibuprofen (Motrin Tab*) 600 mg PO Q8H PRN PRN Reason: PAIN Last Admin: 01/20/17 20:15 Dose: 600 mg Ondansetron HCl (Zofran Inj*) 4 mg IV Q4H PRN PRN Reason: NAUSEA/VOMITING Last Admin: 01/20/17 08:53 Dose: 4 mg - Review of Systems Constitutional Symptoms: No: Fever Pulmonary: Negative: Cough, Sputum, Respiratory Distress Cardiology: Negative: Chest Pain, Shortness of Breath Home Medications: Home Medications Medication Instructions Recorded Confirmed Type Ibuprofen TAB* [Motrin TAB*] 600 mg PO BID 10/29/12 01/19/17 History Allergies: Allergies Allergy/AdvReac Type Severity Reaction Status Date / Time No Known Allergies Allergy Verified 10/29/12 11:40 Objective - Vital Signs Vital Signs: Vital Signs 01/20/17 01/20/17 01/20/17 15:23 20:00 20:23 Temperature 98.3 F 98.3 F Pulse Rate 102 98 Respiratory 18 16 16 Rate Blood Pressure 150/59 149/67 (mmHg) O2 Sat by Pulse 97 97 97 Oximetry 01/20/17 01/21/17 23:24 05:57 Temperature 98.0 F 97.9 F Pulse Rate 93 86 Respiratory 16 16 Rate Blood Pressure 123/97 146/57 (mmHg) O2 Sat by Pulse 96 98 Oximetry - Intake and Output Intake and Output: Intake & Output 01/18/17 01/19/17 01/20/17 01/21/17 11:59 11:59 11:59 11:59 Intake Total 470 2873 Output Total 3750 Balance 470 -877 Intake: IV Fluids 2033 NS (0.9%) 1353 Oral 470 840 Output: Urine 3750 Other: # Bowel Movements 0 Estimated Stool Amount Small ADLs: Meal Record Start: 01/19/17 20: 55 Freq: DAILY@0900,1400,1800 Status: Active Created 01/19/17 20:55 System (Rec: 01/19/17 20:55 System MED-M02) Document 01/20/17 09:00 [id number] (Rec: 01/20/17 10:42 [id number] MED-C09) Document 01/20/17 14:00 [id number] (Rec: 01/20/17 14:28 [id number] MED-C11) Document 01/20/17 18:00 [id number] (Rec: 01/20/17 18:40 [id number] MED-C11) Intake and Output Start: 01/19/17 14: 13 Freq: Status: Active Created 01/19/17 14:13 System (Rec: 01/19/17 14:13 System ED-C19) Intake and Output Start: 01/19/17 20: 55 Freq: DAILY@0600,1400,2200 Status: Active Created 01/19/17 20:55 System (Rec: 01/19/17 20:55 System MED-M02) Document 01/20/17 05:20 [id number] (Rec: 01/20/17 05:21 [id number] MEDL-C01) Document 01/20/17 14:00 [id number] (Rec: 01/20/17 14:28 [id number] MED-C11) Document 01/20/17 22:00 [id number] (Rec: 01/20/17 22:30 [id number] MED-C11) Document 01/21/17 04:16 [id number] (Rec: 01/21/17 04:16 [id number] MED-C04) - Physical Exam General: No Cyanosis, Yes Anemia, No Jaundice, No Clubbing Lungs and Chest: Yes: Chest Expansion Full, Chest Expansion Symetrica, Percussion Note Resonant, Vessicular Breath Sounds. No: Crackles, Wheezes, Respiratory Distress, Use of Accessory Muscles Heart Rate and Rhythm: Irregular JVP: Not Elevated Additional Cardiovascular: Yes: Normal Heart Sounds. No: Heart Murmur, Pedal Edema Abdominal Exam: Yes: Soft, Bowel Sounds Present. No: Distention, Abdominal Tenderness - Extremities Cranial Nerves II-XII Intact: Yes Limbs: Normal Power, Normal Coordination - Neuro Orientation: A/O x3 Speech: Normal Results - Results Lab Results: Laboratory Results - last 24 hr 01/20/17 01/20/17 01/21/17 11:55 16:46 05:59 WBC 12.4 H RBC 3.05 L Hgb 6.7 L Hct 22 L MCV 71 L MCH 22 L MCHC 31 RDW 19 H Plt Count 392 MPV 6 L Neut % (Auto) 80.2 Lymph % (Auto) 12.0 L [place] % (Auto) 7.4 Eos % (Auto) 0.2 Baso % (Auto) 0.2 Absolute Neuts (auto) 9.9 H Absolute Lymphs (auto) 1.5 Absolute Monos (auto) 0.9 H Absolute Eos (auto) 0 Absolute Basos (auto) 0 Absolute Nucleated RBC 0 Nucleated RBC % 0 Sodium Potassium Chloride Carbon Dioxide Anion Gap BUN Creatinine Est GFR ( Amer) Est GFR (Non-Af Amer) BUN/Creatinine Ratio Glucose POC Glucose (mg/dL) 243 H Calcium Total Bilirubin Direct Bilirubin Indirect Bilirubin AST ALT Alkaline Phosphatase C-Reactive Protein Total Protein Albumin Globulin Albumin/Globulin Ratio Urine Color Yellow Urine Appearance Cloudy Urine pH 6.0 Ur Specific [place] 1.023 Urine Protein 1+(30 mg/dl) H Urine Ketones 1+ H Urine Blood Negative Urine Nitrate Negative Urine Bilirubin Negative Urine Urobilinogen Negative Ur Leukocyte Esterase 3+ H Urine WBC (Auto) 3+(>20/hpf) H Urine RBC (Auto) 1+(3-5/hpf) H Ur Squamous Epith Cells Present H Urine Bacteria Absent Hyaline Casts Present H Urine Glucose Negative 01/21/17 05:59 WBC RBC Hgb Hct MCV MCH MCHC RDW Plt Count MPV Neut % (Auto) Lymph % (Auto) [place] % (Auto) Eos % (Auto) Baso % (Auto) Absolute Neuts (auto) Absolute Lymphs (auto) Absolute Monos (auto) Absolute Eos (auto) Absolute Basos (auto) Absolute Nucleated RBC Nucleated RBC % Sodium 136 Potassium 3.5 Chloride 110 Carbon Dioxide 21 L Anion Gap 5 BUN 15 Creatinine 0.77 Est GFR ( Amer) 92.1 Est GFR (Non-Af Amer) 71.6 BUN/Creatinine Ratio 19.5 Glucose 117 H POC Glucose (mg/dL) Calcium 8.3 L Total Bilirubin 0.30 Direct Bilirubin 0.10 Indirect Bilirubin 0.2 L AST 18 ALT 11 Alkaline Phosphatase 37 C-Reactive Protein 65.06 H Total Protein 5.8 L Albumin 2.8 L Globulin 3.0 Albumin/Globulin Ratio 0.9 L Urine Color Urine Appearance Urine pH Ur Specific [place] Urine Protein Urine Ketones Urine Blood Urine Nitrate Urine Bilirubin Urine Urobilinogen Ur Leukocyte Esterase Urine WBC (Auto) Urine RBC (Auto) Ur Squamous Epith Cells Urine Bacteria Hyaline Casts Urine Glucose Radiology Results: Patient Name: SIMONE SHEEHAN Medical Record#: [id number] Ordering Physician: Jamey Goncalves MD Acct.#: [id number] : 1935 Age: 81 Sex: F Location: [address] [place] [address] MEDICAL Exam Date: 01/20/17810 ADM Status: ADM Cathi Order Information: ELBOW LEFT 2 VWS Accession Number: [id number] CPT: 17254 HISTORY: Left elbow injury COMPARISONS: None VIEWS: 3, Frontal, lateral, and oblique views of the left elbow FINDINGS: The study is somewhat technically limited. BONE DENSITY: Normal. BONES: There is no displaced fracture. JOINTS: There is no arthropathy. ALIGNMENT: There is no dislocation. SOFT TISSUES: Unremarkable. OTHER FINDINGS: None. IMPRESSION: NO ACUTE OSSEOUS INJURY. IF SYMPTOMS PERSIST, RECOMMEND REPEAT IMAGING. <Electronically signed by Genaro Mcginnis MD in OV> 01/20/17852 Dictated By: Genaro Mcginnis MD Dictated Date/Time: 01/20/17852 Transcribed Date/Time: 01/20/17851 Copy to: CC:Jamey Goncalves MD; Manuel Martínez MD Imaging - [facility] Imaging - [facility] Imaging - [facility] [address] [place] [address] ph ([phone]) ph ([phone]) ph ([phone]) of Assessment - Problem List Assessment: Patient Problems Acute neutrophilia (Acute) Concussion (Acute) Electrolyte abnormality (Acute) Head injury (Acute) History of falling (Acute) Injury of left shoulder (Acute) Iron deficiency anemia (Acute) Irregular heart rhythm (Acute) Right rib fracture (Acute) Thickening of esophagus (Acute) Troponin I above reference range (Acute) UTI (urinary tract infection) (Acute) Vomiting (Acute) Essential hypertension (Chronic) Hypercholesterolemia (Chronic) Type 2 diabetes mellitus (Chronic) Plan: Acute neutrophilia (Acute) This has mostly resolved UTI Her urinalysis is suggestive of a UTI - we are giving her cipro. I note that her urinalysis was obtained after starting cipro and hence I doubt we will obtain C and S, but her blood cultures are negative Electrolyte abnormality (Acute) Recovered - I have stopped her IVF Concussion (Acute)Head injury (Acute) Mostly recovered. She has had no evidence of hemorrhage. History of falling (Acute) She was evaluated by PT with whom I spoke personally after the assessment yesterday. She is safe with a walker and I have ordered one Anemia: This is iron deficiency. I think she has an inadequate diet - there may be some blood loss (she has a thickened lower esophagus we will evaluate after discharge). I am giving her an iron infusion prior to discharge. Injury of left shoulder (Acute) No fracture, but she is not safe to drive with this shoulder problem Irregular heart rhythm (Acute) This is a sinus dysrhythmia. Right rib fracture (Acute) No significant pain or signs of major lung injury Thickening of esophagus (Acute) for evaluation as outpatient Troponin I above reference range (Acute) This is minor and I think not due to acute ischemia. I will evaluate this further as an outpatient Vomiting (Acute) This has resolved Essential hypertension (Chronic) Stable Hypercholesterolemia (Chronic) secondary diagnosis Type 2 diabetes mellitus (Chronic) controlled with diet alone I spoke with her son Manuel. He is going to come with a friend to pick her up. She lives alone, but they will have someone look in. I discussed with the vacation planner having a visiting RN. She will follow up with me next week as an outpatient. I explained this to the patient.
[2017-01-21 08:08] VITALS: BP 149/62
[2017-01-21] MEDS ORDERED: Ciprofloxacin TAB* 500 MG PO SCH (09:00)
[2017-01-21] MEDS: amLODIPine TAB* 5 MG PO SCH (09:11)
[2017-01-21 09:49] LABS: Folate 5.52 ng/mL (>3.99)
--- NOTE | 2017-01-21 10:22 | ED ---
Emilia Joyce Nilda, scribed for Chuck Alvarado MD on 01/19/17 at 1458 . Adult Trauma - HPI Summary HPI Summary: This patient is an 81 year old F BIBA to [facility] s/p fall today after slipping on water in the shower. The patient rates the pain 5/10 in severity. Pain is aggravated by movement and alleviated by rest. Per EMS, patient also fell 5 days ago and hit her head on coffee table. She called her PCP yesterday who suggested she come to the ED and she refused. After falling again today, she was brought to the ED. Patient reports dysuria, fever, cough, mild SOB, headache , neck pain, left shoulder pain, sternum pain, nausea, and vomiting (5-6 times per day for 5 days). Patient denies hematuria, tongue bite, abdomen pain, dizziness, abnormal balance, and hip pain. Patient is ambulatory. No PMHx of HTN , DM. - History of Current Complaint Chief Complaint: EDExtremityUpper Stated Complaint: FALL Hx Obtained From: Patient, EMS Mechanism of Injury: Fall Onset/Duration: Started Hours Ago Onset of Pain: Immediate Current Severity: Moderate Pain Intensity: 5 Pain Scale Used: 0-10 Numeric Location: Head, Neck, Chest - sternum, Extremities - left shoulder Aggravating Factor(s): Movement Alleviating Factor(s): Rest Associated Signs & Symptoms: Positive: Other: - dysuria, fever, cough, mild SOB , headache, neck pain, left shoulder pain, sternum pain, nausea, and vomiting (5 -6 times per day for 5 days). Patient denies hematuria, tongue bite, abdomen pain, dizziness, abnormal balance, and hip pain. - Allergy/Home Medications Allergies/Adverse Reactions: Allergies Allergy/AdvReac Type Severity Reaction Status Date / Time No Known Allergies Allergy Verified 10/29/12 11:40 PMH/Surg Hx/FS Hx/Imm Hx Endocrine/Hematology History: Denies: Hx Diabetes Cardiovascular History: Denies: Hx Hypertension - used to take BP meds Musculoskeletal History: Reports: Hx Osteoporosis Denies: Hx Rheumatoid Arthritis - Surgical History Surgery Procedure, Year, and Place: LEFT HIP REPLACEMENT Infectious Disease History: No Infectious Disease History: Denies: Traveled Outside the [place] in Last 30 Days - Family History Known Family History: Negative: Hypertension, Diabetes - Social History Alcohol Use: Daily Alcohol Amount: 2 beers per day Substance Use Type: Reports: None Smoking Status (MU): Former Smoker Review of Systems Positive: Other - fall. Negative: Chills Negative: Erythema Positive: Other - negative tongue bite. Negative: Sore Throat Positive: Chest Pain - sternum Positive: Shortness Of Breath - mild, Cough Positive: Vomiting, Nausea. Negative: Abdominal Pain Positive: dysuria. Negative: hematuria Positive: Other - neck pain, left shoulder pain; negative hip pain. Negative: Myalgia, Edema Negative: Rash Neurological: Other - negative dizziness, abnormal balance Positive: Headache All Other Systems Reviewed And Are Negative: Yes Physical Exam - Summary Physical Exam Summary: Constitutional: Well-developed, Well-nourished, Alert. (-) Distressed Skin: Warm, Dry HENT: Normocephalic; Atraumatic Eyes: Conjunctiva normal Neck: Musculoskeletal ROM normal neck. (-) JVD, (-) Stridor, (-) Tracheal deviation Cardio: Rhythm irregular, rate normal, Heart sounds normal; Intact distal pulses ; The pedal pulses are 2+ and symmetric. Radial pulses are 2+ and symmetric. (- ) Murmur Pulmonary/Chest wall: Effort normal. (-) Respiratory distress, (-) Wheezes, (-) Rales Abd: Soft, (-) Tenderness, (-) Distension, (-) Guarding, (-) Rebound Musculoskeletal: (-) Edema, sternal tenderness, pain with active range of motion on left arm extension, proximal humerus tenderness. Lymph: (-) Cervical adenopathy Neuro: Alert, Oriented x3 Psych: Mood and affect Normal Triage Information Reviewed: Yes Vital Signs On Initial Exam: Initial Vitals Temp Pulse Resp BP Pulse Ox 98.9 F 100 16 102/61 98 01/19/17 14:13 01/19/17 14:13 01/19/17 14:13 01/19/17 14:13 01/19/17 14:13 Vital Signs Reviewed: Yes - Robbin Coma Scale Coma Scale Total: 15 Diagnostics - Vital Signs Vital Signs Temp Pulse Resp BP Pulse Ox 01/19/17 14:13 98.9 F 100 16 102/61 98 - Laboratory Result Diagrams: 01/19/17 17:27 01/19/17 17:27 Lab Statement: Any lab studies that have been ordered have been reviewed, and results considered in the medical decision making process. - CT Brain CT Interpretation Completed By: Radiologist - No clavicular fracture or acute intracranial hemorrhage. No actue fracture or dislocation of the c-spine. There are age-appropriate chronic appearing and degenerative changes involving the brain and C-spine described in the body of the report. ED physician reviewed report and agrees. C-Spine CT Interpretation Completed By: Radiologist - reveals no clavicular fracture or acute intracranial hemorrhage. No actue fracture or dislocation of the c-spine. There are age-appropriate chronic appearing and degenerative changes involving the brain and C-spine described in the body of the report. ED physician reviewed report and agrees. Chest CT Interpretation Completed By: Radiologist - 1. There are subacute to chronic appearing rib fractures involving the lateral right fifth and sixth ribs. Please correlate to physical examination. 2. Immediately subjacent to these distorted ribs is a 1.6 cm focus of groundglass density in the lateral aspect of the right upper lobe. Potentially this represents pulmonary contusion from prior traumatic injury. Less likely this could be a groundglass lesion secondary to infection, inflammation or neoplasm. 3. Circumferential thickening of the lower esophagus up to 8 mm in thickness. Please correlate to signs and symptoms of esophagitis. A potential esophageal neoplasm is not excluded on this imaging alone. ED physician reviewed report and agrees. - EKG 1831 Cardiac Rate: Tachycardia - 100 bpm EKG Rhythm: Sinus Tachycardia EKG Interpretation: No STEMI - Additional Comments Diagnostic Additional Comments: Shoulder Left 2+ VWS, per radiologist, reveals degenerative changes of the left shoulder without radiographically apparent fracture or dislocation. ED physician reviewed report and agrees. Adult Trauma Course/Dx - Course Course Of Treatment: This patient is an 81 year old F BIBA to [facility] s/p fall today after slipping on water in the shower. The patient rates the pain 5/10 in severity. Pain is aggravated by movement and alleviated by rest. Per EMS, patient also fell 5 days ago and hit her head on coffee table. She called her PCP yesterday who suggested she come to the ED and she refused. After falling again today, she was brought to the ED. Patient reports dysuria, fever, cough, mild SOB, headache, neck pain, left shoulder pain, sternum pain, nausea, and vomiting (5-6 times per day for 5 days). Patient denies hematuria, tongue bite, abdomen pain, dizziness, abnormal balance, and hip pain. Patient is ambulatory. No PMHx of HTN, DM. CT Brain, per radiologist, reveals no clavicular fracture or acute intracranial hemorrhage. No actue fracture or dislocation of the c- spine. There are age-appropriate chronic appearing and degenerative changes involving the brain and C-spine described in the body of the report. ED physician reviewed report and agrees. CT C-Spine, per radiologist, reveals no clavicular fracture or acute intracranial hemorrhage. No actue fracture or dislocation of the c-spine. There are age-appropriate chronic appearing and degenerative changes involving the brain and C-spine described in the body of the report. ED physician reviewed report and agrees. CT Chest, per radiologist reveals: 1. There are subacute to chronic appearing rib fractures involving the lateral right fifth. and sixth ribs. Please correlate to physical examination. 2. Immediately subjacent to these distorted ribs is a 1.6 cm focus of groundglass density. in the lateral aspect of the right upper lobe. Potentially this represents pulmonary. contusion from prior traumatic injury. Less likely this could be a groundglass lesion. secondary to infection, inflammation or neoplasm. 3. Circumferential thickening of the lower esophagus up to 8 mm in thickness. Please. correlate to signs and symptoms of esophagitis. A potential esophageal neoplasm is not. excluded on this imaging alone. ED physician reviewed report and agrees. Shoulder Left 2+ VWS, per radiologist, reveals degenerative changes of the left shoulder without radiographically apparent fracture or dislocation. ED physician reviewed report and agrees. EKG reveals tachycardia, 100 bpm, no STEMI. [1854] Dr. Goncalves ( Advertising Assistant) agrees that his patient be admitted. [1943] Dr. Larson ( Hospitalist) agrees to admit patient with a diagnosis of hypokalemia, concussion , and vomitting. Follow up on CT reads. - Diagnoses Provider Diagnoses: Hypokalemia, Concussion, Vomiting - Physician Notifications Discussed Care Of Patient With: Tonya Larson - Hospitalist Time Discussed With Above Provider: 19:43 Instructed by Provider To: Admit As Inpatient Discharge - Discharge Plan Condition: Stable Disposition: ADMITTED TO [facility] The documentation as recorded by the Emilia tovar Nilda accurately reflects the service I personally performed and the decisions made by , Chuck Alvarado MD.
== END 2017-01-21 14:00 | disposition home or self-care (01) | DRG 815 ==
LOC: ED 14:03 → MED 19:43 → OBSVTOIN 01-20 08:15
PROVIDERS: ADMIT Internal Medicine; ATTEND Internal Medicine
DX: D72.828 Other elevated white blood cell count (principal); N17.9 Acute kidney failure, unspecified; S40.012A Contusion of left shoulder, initial encounter; S22.31XA Fracture of one rib, right side, initial encounter for closed fracture; K22.8 Other specified diseases of esophagus; E87.1 Hypo-osmolality and hyponatremia; S06.0X1A Concussion with loss of consciousness of 30 minutes or less, initial encounter; E11.9 Type 2 diabetes mellitus without complications; W18.30XA Fall on same level, unspecified, initial encounter; Y92.009 Unspecified place in unspecified non-institutional (private) residence as the place of occurrence of the external cause; I49.9 Cardiac arrhythmia, unspecified; R74.8 Abnormal levels of other serum enzymes; I10 Essential (primary) hypertension; E78.00 Pure hypercholesterolemia, unspecified; Z96.642 Presence of left artificial hip joint; Z79.84 Long term (current) use of oral hypoglycemic drugs; Z79.1 Long term (current) use of non-steroidal anti-inflammatories (NSAID); E87.6 Hypokalemia
CPT/HCPCS: 36415; 70450; 71260; 72125; 80048; 80053; 80076; 81003; 81015; 82378; 82607; 82728; 82746; 83540; 83550; 83605; 84484; 85025; 85610; 85730; 86140; 87040; 87086; 93005; A9270-GY; G8978-GP-CI; G8979-GP-CH; G8980-GP-CI; J0360; J1644; J2270; J2405; J3480; Q0138; Q9967

== ENCOUNTER 2017-11-05 10:29 | Emergency (ER) | payer MEDICARE, OTHER ==
[2017-11-05 10:43] VITALS: BP 178/86
--- NOTE | 2017-11-05 11:16 | UC ---
Abdominal Pain Female HPI - HPI Summary HPI Summary: 3 days of nausea and vomiting had a similar episode last week. she lives alone and is here with a friend that she called. They both agree she has lost a significant amount of weight in the past 3 months--patient reports no issue if diarrhea or constipation - History of Current Complaint Chief Complaint: UCAbdominalPain Stated Complaint: VOMITING ABD PAIN Time Seen by Provider: 11/05/17 11:11 Hx Obtained From: Patient ?: No Onset/Duration: Gradual Onset, Lasting Days - 3, Still Present Timing: Constant Pain Intensity: 10 Pain Scale Used: 0-10 Numeric Location: Discrete At: RUQ, Discrete At: RLQ Radiates: No Character: Unable to describe Aggravating Factor(s): Food, Movement Alleviating Factor(s): Nothing Associated Signs and Symptoms: Positive: Decreased Appetite, Nausea, Vomiting Allergies/Adverse Reactions: Allergies Allergy/AdvReac Type Severity Reaction Status Date / Time No Known Allergies Allergy Verified 11/05/17 10:43 PMH/Surg Hx/FS Hx/Imm Hx Previously Healthy: No - Surgical History Surgical History: Yes Surgery Procedure, Year, and Place: LEFT HIP REPLACEMENT - Family History Known Family History: Negative: Hypertension, Diabetes - Social History Occupation: Retired Lives: Alone Alcohol Use: Daily Alcohol Amount: 2 beers per day Substance Use Type: None Smoking Status (MU): Former Smoker Have You Smoked in the Last Year: No - Immunization History Most Recent Influenza Vaccination: this season Most Recent Pneumonia Vaccination: up to date Review of Systems Constitutional: Negative Skin: Negative Eyes: Negative ENT: Negative Respiratory: Negative Cardiovascular: Negative Gastrointestinal: Abdominal Pain, Vomiting, Nausea Genitourinary: Negative Motor: Negative Neurovascular: Negative Musculoskeletal: Negative Neurological: Negative Psychological: Negative Is Patient Immunocompromised?: No All Other Systems Reviewed And Are Negative: Yes Physical Exam Triage Information Reviewed: Yes Appearance: Ill-Appearing, Pain Distress, Thin Vital Signs: Initial Vital Signs Temp 97.5 F 11/05/17 10:39 Pulse 95 11/05/17 10:39 Resp 16 11/05/17 10:39 BP 178/86 11/05/17 10:39 Pulse Ox 100 11/05/17 10:39 Vital Signs Reviewed: Yes Eye Exam: Normal Eyes: Positive: Conjunctiva Clear ENT Exam: Normal ENT: Positive: Normal ENT inspection, Hearing grossly normal, Other - mucous membranes--dry. Negative: Trismus, Muffled voice, Hoarse voice Dental Exam: Normal Neck exam: Normal Neck: Positive: Supple, Nontender, No Lymphadenopathy Respiratory Exam: Normal Respiratory: Positive: Chest non-tender, Lungs clear, No respiratory distress, No accessory muscle use, Decreased breath sounds Cardiovascular Exam: Normal Cardiovascular: Positive: RRR, No Murmur, Pulses Normal, Brisk Capillary Refill Abdominal Exam: Other Abdomen Description: Positive: No Organomegaly, Guarding, Peritoneal Signs - pain with movement, palpation Bowel Sounds: Positive: Present Musculoskeletal Exam: Other Musculoskeletal: Positive: ROM Intact, No Edema, Strength Limited @ - generally weak Neurological Exam: Normal Neurological: Positive: Alert, Muscle Tone Normal Psychological Exam: Normal Skin Exam: Normal Abd Pain Female Course/Dx - Course Course Of Treatment: Transfer by private car (patient refused ambulance) to [facility] Emergency Department for further evaluation and care - Differential Dx/Diagnosis Provider Diagnoses: acute abdomen pain Discharge - Sign-Out/Discharge Documenting (check all that apply): Patient Departure - Discharge Plan Condition: Guarded Disposition: HOME-RECOMMEND TO ED Patient Education Materials: Acute Abdominal Pain (ED) Referrals: Jamey Goncalves MD [Primary Care Provider] - Additional Instructions: nothing to eat or drink-----please go directly to the emergency department for further care and treatment - Billing Disposition and Condition Condition: GUARDED Disposition: Home-Recommend to ED
== END 2017-11-05 11:30 | disposition home health service (06) ==
LOC: UCEAST 10:29
DX: R11.2 Nausea with vomiting, unspecified (principal); R10.9 Unspecified abdominal pain; R63.4 Abnormal weight loss; Z96.642 Presence of left artificial hip joint; Z87.891 Personal history of nicotine dependence; K29.70 Gastritis, unspecified, without bleeding; J44.9 Chronic obstructive pulmonary disease, unspecified; K57.30 Diverticulosis of large intestine without perforation or abscess without bleeding; Z96.641 Presence of right artificial hip joint
CPT/HCPCS: 36415; 71045; 74177; 80053; 81003; 82150; 83605; 83690; 83735; 84484; 85025; 85610; 85730; 86140; 93005; 96374; 96375; 99212; 99284; A9270-GY; G0463; J2270; J2405; J2765; Q9967

== ENCOUNTER 2017-11-05 11:52 | Emergency (ER) | payer MEDICARE, OTHER ==
[2017-11-05] MEDS ORDERED: Ondansetron INJ* 2 MG/ML VIAL ONE (12:14)
[2017-11-05] MEDS ORDERED: Ondansetron INJ* 2 MG/ML VIAL IV ONE (12:14)
[2017-11-05] MEDS ORDERED: NS 0.9% 1000 ML* 1,000 ML IV ONE (12:16)
[2017-11-05] MEDS ORDERED: Morphine INJ* 10 MG/ML 1 ML CARPUJECT IV ONE (12:28)
[2017-11-05] MEDS ORDERED: Morphine VIAL* 10 MG/ML 1 ML VIAL ONE (12:33)
[2017-11-05] MEDS ORDERED: Morphine VIAL* 10 MG/ML 1 ML VIAL IM ONE (12:34)
[2017-11-05] MEDS ORDERED: Metoclopramide IV* 5 MG/ML 2 ML VIAL IV ONE (12:35)
[2017-11-05] MEDS ORDERED: Pantoprazole IV* 40 MG IV ONE (12:35)
--- NOTE | 2017-11-05 12:46 | ED ---
Abdominal Pain/Female - HPI Summary HPI Summary: This is zurijesus Resendiz Rupert documenting for attending Dr. Tamiko Greene MD. The patient is an 82 y/o F presenting to [facility] from [facility] c/o constant epigastric pain with nausea/vomiting with some blood starting 5 days ago. She rates the pain 10/10 in severity. She additionally c/o decreased appetite. She denies fevers, chills, and blood in stool. She states that she drinks at least two beers a day, but has since stopped since the onset of her pain. She has not had any surgeries on her abdomen and has not had pancreatitis in the past. She had a right hip replacement. She takes Ibuprofen for an injury in her right foot. - History of Current Complaint Chief Complaint: EDNeris Stated Complaint: VOMITTING/STOMACHE PAINS Time Seen by Provider: 11/05/17 12:05 Hx Obtained From: Patient Onset/Duration: Sudden Onset, Lasting Days - 5 days, Still Present Timing: Constant Severity Initially: Moderate Severity Currently: Severe Pain Intensity: 10 Pain Scale Used: 0-10 Numeric Location: Epigastric Radiates: No Aggravating Factor(s): Nothing Associated Signs and Symptoms: Positive: Decreased Appetite. Negative: Fever, Blood in Stool Allergies/Adverse Reactions: Allergies Allergy/AdvReac Type Severity Reaction Status Date / Time No Known Allergies Allergy Verified 11/05/17 12:03 PMH/Surg Hx/FS Hx/Imm Hx Endocrine/Hematology History: Reports: Hx Anemia Denies: Hx Diabetes Cardiovascular History: Denies: Hx Hypertension - used to take BP meds GI History: Denies: Hx Jaundice Musculoskeletal History: Reports: Hx Osteoporosis Denies: Hx Rheumatoid Arthritis Sensory History: Reports: Hx Contacts or Glasses - Left at home Denies: Hx Hearing Aid Opthamlomology History: Reports: Hx Contacts or Glasses - Left at home - Surgical History Surgery Procedure, Year, and Place: LEFT HIP REPLACEMENT Infectious Disease History: No Infectious Disease History: Denies: Traveled Outside the [place] in Last 30 Days - Family History Known Family History: Negative: Hypertension, Diabetes - Social History Alcohol Use: Daily Alcohol Amount: 3/4 beers per day Substance Use Type: Reports: None Smoking Status (MU): Former Smoker Have You Smoked in the Last Year: No Review of Systems Negative: Fever, Chills Positive: Abdominal Pain - epigastric, Vomiting - with blood, Nausea All Other Systems Reviewed And Are Negative: Yes Physical Exam - Summary Physical Exam Summary: GENERAL: Patient is a well developed and nourished female who is lying comfortable in the stretcher. Patient is not in any acute respiratory distress. HEAD AND FACE: Normocephalic EYES: PERRLA, EOMI x 2. EARS: Hearing grossly intact. MOUTH: Oropharynx within normal limits. NECK: Supple, trachea is midline, no adenopathy, no JVD, no carotid bruit. CHEST: Symmetric, no tenderness at palpation LUNGS: Clear to auscultation bilaterally. No wheezing or crackles. CVS: Regular rate and rhythm, S1 and S2 present, no murmurs or gallops appreciated. ABDOMEN: Soft. Tender to palpation in epigastric region. Bowel sounds are normal. No abdominal abnormal pulsations. EXTREMITIES: Full ROM in all major joints, no edema, no cyanosis or clubbing. NEURO: Alert and oriented x 3. No acute neurological deficits. Speech is normal and follows commands. SKIN: Dry and warm Triage Information Reviewed: Yes Vital Signs On Initial Exam: Initial Vitals Temp Pulse Resp BP Pulse Ox 98.6 F 89 22 200/83 99 11/05/17 12:02 11/05/17 12:02 11/05/17 12:02 11/05/17 12:02 11/05/17 12:02 Vital Signs Reviewed: Yes Diagnostics - Vital Signs Vital Signs Temp Pulse Resp BP Pulse Ox 11/05/17 12:36 20 11/05/17 12:11 84 199/88 100 11/05/17 12:10 81 99 11/05/17 12:09 84 200/83 100 11/05/17 12:02 98.6 F 89 22 200/83 99 - Laboratory Result Diagrams: 11/05/17 12:27 11/05/17 12:27 Lab Statement: Any lab studies that have been ordered have been reviewed, and results considered in the medical decision making process. - Radiology CXR Xray Interpretation: Positive (See Comments) - Stigmata of obstructive lung disease. No acute pulmonary or cardiac process evident. ED physician has reviewed this report. Radiology Interpretation Completed By: Radiologist - CT Abd/Pel CT Interpretation: Positive (See Comments) - 1. Stigmata of chronic obstructive pulmonary disease. 2. Mild colonic diverticulosis without findings of diverticulitis. 3. While the appendix is not discretely visualized, there is no inflammatory change in the right lower quadrant or region of the tip of the cecum to suggest presence of an acute inflammatory process. 4. New mild bilateral pelvicaliectasis without visualized obstructing stone or lesion. Significant distention of the urinary bladder. Correlate for urinary retention. 5. Negative for lymphadenopathy. ED physician has reviewed this report. CT Interpretation Completed By: Radiologist - EKG 12:40 Cardiac Rate: Other Rate - Ectopic atrial rate and rhythm 80 BPM EKG Interpretation: LVH. Re-Evaluation - Re-Evaluation First Eval Re-Evaluation Time: 17:00 Change: Improved Comment: Pt is not nauseous and is able to ambulate normally. She will be discharged home. She is agreeable with this plan. Abdominal Pain Fem Course/Dx - Course Course Of Treatment: The patient is an 82 y/o F presenting to [facility] from [facility] c/ o constant epigastric pain with nausea and vomiting with some blood starting 5 days ago. She rates the pain 10/10 in severity. She additionally c/o decreased appetite. She denies fevers, chills, and blood in stool. She states that she drinks at least two beers a day, but has since stopped since the onset of her pain. She has not had any surgeries on her abdomen and has not had pancreatitis in the past. Medications reviewed. No allergies noted. In the ED course, pt was administered IV Visipaque Contrast 56ml, IV Reglan 10mg, IV Morphine 4mg 2x, IV Zofran 4mg, IV Protonix 40mg, IV Ns 0.9% 1000ml @ 1000mls/hr, PO Potassium Chloride 40meq. Bloodwork shows increased WBC, neutrophils, platelets, and RDW and decreased lymphocytes. UA is negative. EKG shows ectopic atrial rhythm and LVH. CXR reveals stigmata of obstructive lung disease. CT Abd/Pel reveals mild colonic diverticulitis and pelvicaliectasis. Pt is diagnosed with gastritis. I consulted with Dr. Reynolds, hospitalist, at 15:58 concerning pt's symptoms[address] Madison consulted with the pt at 16:50 and states that since the pt is feeling much better without nausea and no difficulty with ambulation, the pt is able to go home. She will be discharged home under stable conditions with a follow up with her PCP Dr. Goncalves and prescription for Amlodipine, Zofran, and Protonix. Return precautions discussed. Pt is agreeable with this plan. - Diagnoses Provider Diagnoses: Gastritis - Provider Notifications Discussed Care Of Patient With: Woody Reynolds - I also consulted Dr. Madison who examined the pt and said that she is able to be discharged home at 16:50. Time Discussed With Above Provider: 15:58 Discharge - Sign-Out/Discharge Documenting (check all that apply): Patient Departure - Pt will be discharged home. - Discharge Plan Condition: Stable Disposition: HOME Prescriptions: RX: amLODIPine TAB* [Norvasc 5 mg TAB*] 5 mg PO DAILY 30 Days #30 tab Ondansetron [Zofran Odt] 4 mg PO TID #12 tab.rapdis RX: Pantoprazole TAB (NF) [Protonix TAB (NF)] 40 mg PO DAILY #30 tab Patient Education Materials: Gastritis (ED) Referrals: Jamey Goncalves MD [Primary Care Provider] - 2 Days Additional Instructions: Please take medication as prescribed. Follow up with your primary care physician. Dr. Goncalves, in 2-3 days. Return to the emergency department for any new or worsening symptoms. - Billing Disposition and Condition Condition: STABLE Disposition: Home
[2017-11-05 12:53] LABS: EGFR Non-African American 59.7 (>60)
[2017-11-05 13:00] LABS: Hematocrit 27 % (35-47); Hemoglobin 8.5 g/dl (12.0-16.0); INR 0.91 (0.77-1.02); Mean Corpuscular HGB Conc 32 g/dl (31-36); Mean Corpuscular Hemoglobin 22 pg (27-31); Mean Corpuscular Volume 69 fL (80-97); Mean Platelet Volume 6.6 um3 (7.4-10.4); Platelet Count 578 10^3/ul (150-450); Red Blood Count 3.89 10^6/ul (4.00-5.40); Red Cell Distribution Width 20 % (10.5-15); White Blood Count 16.1 10^3/ul (3.5-10.8)
[2017-11-05 13:01] LABS: ABS Basophils 0 10^3/ul (0-0.2); ABS Eosinophils 0 10^3/ul (0-0.6); ABS Lymphocytes 0.8 10^3/ul (1.0-4.8); ABS Monocytes 0.5 10^3/ul (0-0.8); ABS Neutrophils 14.8 10^3/ul (1.5-7.7); ABS Nucleated RBC 0 10^3/ul; Eosinophil % 0.1 % (0-6); Lymphocyte % 4.8 % (25-47); Nucleated Red Blood Cells % 0
[2017-11-05] MEDS ORDERED: Iodixanol* (CONTRAST) 320 MG/ML 100 ML SDV IV ONE (13:37)
--- NOTE | 2017-11-05 13:38 | RAD ---
Indication: Vomiting, stomach pain. Comparison: January 19, 2017 CT. Technique: Upright AP 1319 hours Report: Elevated lung volumes and both diffuse mild prominence of the interstitial markings and patchy rarefaction of the mid to upper lung zone interstitial markings. No focal pulmonary lesion, compelling alveolar consolidation, pleural effusion, pneumothorax. Negative for cardiomegaly. Unremarkable central pulmonary vasculature. Mildly tortuous thoracic aorta. Negative for free air beneath the diaphragm. Multiple healed RIGHT rib fractures noted. No acute fracture evident. IMPRESSION: #. Stigmata of obstructive lung disease. No acute pulmonary or cardiac process evident.
[2017-11-05 14:02] LABS: Urine Appearance Clear; Urine Blood Negative (Negative); Urine Color Straw; Urine Ketones Trace (Negative); Urine Protein Negative (Negative); Urine Urobilinogen Negative (Negative)
--- NOTE | 2017-11-05 15:07 | RAD ---
INDICATION: Abdominal pain. COMPARISON: October 31, 2017 CT. TECHNIQUE: Multidetector CT images were obtained from the lung bases to the ischial tuberosities with 50 mL Visipaque 320 IV and oral contrast. Multiplanar reformation. REPORT: The visualized inferior thorax is remarkable for elevated lung volumes. Unchanged minimal prominence of the intrahepatic bile ducts. Negative for common bile duct dilatation. Top normal distended gallbladder without suspicious CT finding. Negative for focal liver lesions. Moderately atrophic pancreas without suspicious finding. Unremarkable spleen. Negative for CT abnormality of the upper GI or small bowel. While the appendix is not discretely visualized, there is no inflammatory change in the right lower quadrant or region of the tip of the cecum to suggest presence of an acute inflammatory process. Mild colonic diverticulosis without findings of acute diverticulitis. Negative for ascites, free air, or hernias. Normal adrenal glands. Symmetric nephrograms and pyelograms. 2 small to characterize probable subcentimeter cyst at the upper pole cortex of the LEFT kidney. Normal variant extrarenal pelves. Mild bilateral caliectasis new compared with the prior exam. Negative for ureteral dilatation. Distended urinary bladder without additional CT abnormality of the urinary bladder with artifact from the LEFT hip prosthesis limiting assessment. The uterus is not visualized. Unremarkable adnexal regions. Negative for lymphadenopathy. Tortuous abdominal aorta with atherosclerotic calcification is negative for aneurysm. Partially decompressed inferior vena cava consistent with lower volume state. Negative for superficial or retroperitoneal hematoma. Negative for suspicious focal osseous lesions. Unchanged finding of LEFT convex curve of the lumbar spine centered at the L3 level. Multilevel advanced degenerative spondylosis and facet joint osteoarthritis without significant interval change. Multilevel mild to moderate acquired central canal stenosis without significant change. IMPRESSION: #. Stigmata of chronic obstructive pulmonary disease. #. Mild colonic diverticulosis without findings of diverticulitis. #. While the appendix is not discretely visualized, there is no inflammatory change in the right lower quadrant or region of the tip of the cecum to suggest presence of an acute inflammatory process. #. New mild bilateral pelvicaliectasis without visualized obstructing stone or lesion. Significant distention of the urinary bladder. Correlate for urinary retention. #. Negative for lymphadenopathy.
[2017-11-05] MEDS ORDERED: Potassium Chlor TAB* 20 MEQ TAB.ER PO ONE (15:53)
[2017-11-05 17:27] VITALS: BP 193/82
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
== END 2017-11-05 17:27 | disposition home or self-care (01) ==
LOC: ED 11:52
DX: K29.70 Gastritis, unspecified, without bleeding (principal); J44.9 Chronic obstructive pulmonary disease, unspecified; K57.30 Diverticulosis of large intestine without perforation or abscess without bleeding; Z96.641 Presence of right artificial hip joint; Z87.891 Personal history of nicotine dependence
CPT/HCPCS: 36415; 71045; 74177; 80053; 81003; 82150; 83605; 83690; 83735; 84484; 85025; 85610; 85730; 86140; 93005; 96374; 96375; 99284; A9270-GY; J2270; J2405; J2765; Q9967

== ENCOUNTER 2017-11-21 10:01 | Emergency (ER) | payer MEDICARE, OTHER ==
[2017-11-21 10:09] VITALS: BP 153/82
--- NOTE | 2017-11-21 10:34 | UC ---
Abdominal Pain Female HPI - HPI Summary HPI Summary: 82 yo female presents with epigastric pain since yesterday afternoon. She tells me that yesterday afternoon she developed acute episodes of nausea and vomiting with associated epigastric pain. Her symptoms have persisted through the night and into this morning. She reports having vomited about 15 times. The first 2-3 times she vomited she noticed small "tinges" of blood. Her last BM was yesterday morning and she says it was normal for her. Last night she took 2 "pain pills" to help her sleep and to help her abdominal pain. She has not been able to eat or drink or else she will vomit. She does take daily 600mg ibuprofen for ankle pain. She also admits to drinking beer almost daily - only Latoya lite, as she does not like hard liquor. Surg Hx with appendectomy and skin lesion removed from back. Denies fever, chills, SOB, chest pain, diarrhea, constipation, dysuria, or back pain. - History of Current Complaint Chief Complaint: UCAbdominalPain Stated Complaint: VOMITING Time Seen by Provider: 11/21/17 10:20 Hx Obtained From: Patient Onset/Duration: Sudden Onset Severity Initially: Severe Severity Currently: Severe Pain Intensity: 8 Pain Scale Used: 0-10 Numeric Location: Epigastric Allergies/Adverse Reactions: Allergies Allergy/AdvReac Type Severity Reaction Status Date / Time No Known Allergies Allergy Verified 11/21/17 10:10 PMH/Surg Hx/FS Hx/Imm Hx - Additional Past Medical History Additional PMH: None Previously Healthy: Yes - Surgical History Surgical History: Yes Surgery Procedure, Year, and Place: LEFT HIP REPLACEMENT - Family History Known Family History: Negative: Hypertension, Diabetes - Social History Occupation: Retired Lives: With Family Alcohol Use: Daily Alcohol Amount: 3/4 beers per day Substance Use Type: None Smoking Status (MU): Former Smoker Have You Smoked in the Last Year: No - Immunization History Most Recent Influenza Vaccination: this season Most Recent Pneumonia Vaccination: up to date Review of Systems Constitutional: Negative Skin: Negative Eyes: Negative ENT: Negative Respiratory: Negative Cardiovascular: Negative Gastrointestinal: Abdominal Pain, Vomiting, Nausea Genitourinary: Negative Motor: Negative Neurological: Negative Psychological: Negative All Other Systems Reviewed And Are Negative: Yes Physical Exam - Summary Physical Exam Summary: GENERAL: NAD. Thin. SKIN: No rashes, sores, lesions, or open wounds. NECK: Supple. Nontender. No lymphadenopathy. CHEST: CTAB. No r/r/w. No accessory muscle use. Breathing comfortably and in no distress. CV: RRR. Without m/r/g. Pulses intact. Brisk cap refill. ABDOMEN: Moderate TTP over epigastrum. No distention or guarding. No CVA tenderness. Bowel sounds present - mildly hypoactive. Negative russell's sign. NEURO: Alert. CN II-XII grossly intact. PSYCH: Age appropriate behavior. Triage Information Reviewed: Yes Vital Signs: Initial Vital Signs Temp 98.8 F 11/21/17 10:06 Pulse 97 11/21/17 10:06 Resp 18 11/21/17 10:06 BP 153/82 11/21/17 10:06 Pulse Ox 100 11/21/17 10:06 Vital Signs Reviewed: Yes Abd Pain Female Course/Dx - Course Course Of Treatment: Pt was advised to go to the ED for her abdominal pain and vomiting. Her symptoms could be related to bowel obstruction, pancreatitis, gastric ulcer, viral gastroenteritis, or another acute process. - Differential Dx/Diagnosis Provider Diagnoses: Epigastric pain. Vomiting Discharge - Sign-Out/Discharge Documenting (check all that apply): Patient Departure - Discharge Plan Condition: Stable Disposition: HOME-RECOMMEND TO ED Referrals: Jamey Goncalves MD [Primary Care Provider] - Additional Instructions: Please go to the [facility] for further evaluation of your epigastric pain and vomiting - Billing Disposition and Condition Condition: STABLE Disposition: Home-Recommend to ED
== END 2017-11-21 10:36 | disposition home health service (06) ==
LOC: UCEAST 10:01
DX: R10.13 Epigastric pain (principal); R11.10 Vomiting, unspecified; Z96.642 Presence of left artificial hip joint; Z87.891 Personal history of nicotine dependence
CPT/HCPCS: 99212; G0463

== ENCOUNTER 2017-11-21 10:56 | Emergency (ER) | payer MEDICARE, OTHER ==
[2017-11-21] MEDS ORDERED: NS 0.9% 1000 ML* 1,000 ML IV ONE (11:24)
--- NOTE | 2017-11-21 11:43 | ED ---
Abdominal Pain/Female - HPI Summary HPI Summary: The patient is an 82 y/o female presenting to the [facility] c/o epigastric pain rated 8-9/10 in severity since yesterday morning. She notes N/V (last vomited this morning). She also reports feeling constipated but had BM yesterday. She denies CP, SOB, fever, and chills. This is scribe Elizabeth Purcell documenting for attending Dr. Israel MD. - History of Current Complaint Chief Complaint: EDNauseaVomitDiarrh Stated Complaint: VOMITING Time Seen by Provider: 11/21/17 11:04 Hx Obtained From: Patient Onset/Duration: Sudden Onset, Still Present Severity Currently: Severe Pain Intensity: 9 Pain Scale Used: 0-10 Numeric Location: Epigastric Alleviating Factor(s): Bowel Movement - For constipation only Associated Signs and Symptoms: Positive: Constipation - Rosolved this morning by a BM, Nausea, Vomiting, Other: - Negative: SOB. Negative: Fever, Chest Pain Allergies/Adverse Reactions: Allergies Allergy/AdvReac Type Severity Reaction Status Date / Time No Known Allergies Allergy Verified 11/21/17 10:10 Home Medications: Home Medications Alendronate (NF) [Fosamax (NF)] 70 mg PO WEEKLY 11/21/17 [History Confirmed 10/03] Ibuprofen TAB* [Motrin TAB* 600 MG] 600 mg PO BID 11/21/17 [History Confirmed ] Pantoprazole TAB (NF) [Protonix TAB (NF)] 40 mg PO DAILY 11/21/17 [History Confirmed 11/21/17] amLODIPine TAB* [Norvasc 5 mg TAB*] 5 mg PO DAILY 11/21/17 [History Confirmed ] PMH/Surg Hx/FS Hx/Imm Hx Previously Healthy: No Endocrine/Hematology History: Reports: Hx Anemia Denies: Hx Diabetes Cardiovascular History: Reports: Hx Hypertension GI History: Denies: Hx Jaundice Musculoskeletal History: Reports: Hx Osteoporosis Denies: Hx Rheumatoid Arthritis Sensory History: Reports: Hx Contacts or Glasses - Left at home Denies: Hx Hearing Aid Opthamlomology History: Reports: Hx Contacts or Glasses - Left at home - Surgical History Surgery Procedure, Year, and Place: LEFT HIP REPLACEMENT - Immunization History Immunizations Up to Date: Yes Infectious Disease History: Yes Infectious Disease History: Denies: Traveled Outside the [place] in Last 30 Days - Family History Known Family History: Negative: Hypertension, Diabetes - Social History Occupation: Retired Alcohol Use: Daily Alcohol Amount: 3/4 beers per day Substance Use Type: Reports: None Smoking Status (MU): Former Smoker Have You Smoked in the Last Year: No Review of Systems Negative: Fever Negative: Chest Pain Negative: Shortness Of Breath Positive: Abdominal Pain - Epigastric , Vomiting, Nausea, Other - Positive: Constipation All Other Systems Reviewed And Are Negative: Yes Physical Exam - Summary Physical Exam Summary: VITAL SIGNS: Reviewed. GENERAL: Patient is a fragile, thin female who is lying comfortable in the stretcher. Patient is not in any acute respiratory distress. HEAD AND FACE: No signs of trauma. No ecchymosis, hematomas or skull depressions. No sinus tenderness. EYES: PERRLA, EOMI x 2, No injected conjunctiva, no nystagmus. EARS: Hearing grossly intact. Ear canals and tympanic membranes are within normal limits. MOUTH: Oropharynx within normal limits. NECK: Supple, trachea is midline, no adenopathy, no JVD, no carotid bruit, no c- spine tenderness, neck with full ROM. CHEST: Symmetric, no tenderness at palpation LUNGS: Clear to auscultation bilaterally. No wheezing or crackles. CVS: Regular rate and rhythm, S1 and S2 present, no murmurs or gallops appreciated. ABDOMEN: Soft, flat. Mild tenderness in the upper abdomen. No signs of distention. No rebound no guarding, and no masses palpated. Decreased bowel sounds. EXTREMITIES: FROM in all major joints, no edema, no cyanosis or clubbing. NEURO: Alert and oriented x 3. No acute neurological deficits. Speech is normal and follows commands. SKIN: Dry and warm Triage Information Reviewed: Yes Vital Signs On Initial Exam: Initial Vitals Temp Pulse Resp BP Pulse Ox 97.7 F 90 16 138/82 98 11/21/17 10:59 11/21/17 10:59 11/21/17 10:59 11/21/17 10:59 11/21/17 10:59 Vital Signs Reviewed: Yes Diagnostics - Vital Signs Vital Signs Temp Pulse Resp BP Pulse Ox 11/21/17 11:12 93 160/80 100 11/21/17 10:59 97.7 F 90 16 138/82 98 - Laboratory Result Diagrams: 11/21/17 12:01 11/21/17 12:01 Lab Statement: Any lab studies that have been ordered have been reviewed, and results considered in the medical decision making process. - Radiology Abd XR Radiology Interpretation Completed By: Radiologist - IMPRESSION: No acute abdominal pelvic pathologic process evident. The ED physician has reviewed this radiology report. - EKG 11:34 Cardiac Rate: NL - 87 bpm EKG Rhythm: Sinus Rhythm EKG Interpretation: No ST elevation. Re-Evaluation - Re-Evaluation First Eval Re-Evaluation Time: 14:08 Comment: The patient is feeling better and wants to go home. Discussed discharge plan and patient understands and is agreeable with this plan. Abdominal Pain Fem Course/Dx - Course Course Of Treatment: This patient is an 82-year-old female who presents to the emergency department with a chief complaint of having nausea and vomiting. The patient had slight abdominal pain in the upper abdomen. However that he attempted to the physical exam she reports that the pain was resolved. She was seen a week ago in the emergency department for the same reasons with to be an abdominopelvic CT and showed and the stigmata for chronic obstructive pulmonary disease, diverticulosis without diverticulitis, no appendicitis, negative for lymphadenopathy. Blood test results without any significant abnormality except for what was a count of 14.9, chronic anemia with hemoglobin 7.8 and hematocrit 25. Sodium 133, glucose of 159, and urinalysis is negative for UTI. In the ED course the patient was given IV fluids and her symptoms resolved. The patient did not require any antinausea medications. The patient is able to tolerate by mouth and now she is feeling better. She also reports that her abdominal pain has resolved. Abdomen x-ray shows no evidence of abdominal pelvic pathology pulses evident. Therefore since the patient had recently had 2 CTs x-rays is negative for any obstruction and the patient is asymptomatic the patient will be discharged home with follow up PCP. Patient was given a prescription for Zofran. Patient is given a medically stable alert and oriented 3. - Diagnoses Differential Diagnosis: Positive: Other - nausea and vomiting Provider Diagnoses: Nausea and vomiting Discharge - Sign-Out/Discharge Documenting (check all that apply): Patient Departure - Discharge Plan Condition: Stable Disposition: HOME Prescriptions: Ondansetron [Zofran Odt] 4 mg PO Q8H #10 tab Patient Education Materials: Acute Nausea and Vomiting (ED) Referrals: Jamey Goncalves MD [Primary Care Provider] - 3 Days Additional Instructions: FOLLOW UP WITH YOUR PRIMARY CARE PROVIDER WITHIN ONE WEEK FOR HIGH BLOOD PRESSURE NOTED TODAY. RETURN TO THE ED FOR ANY WORSENING OR NEW SYMPTOMS. - Billing Disposition and Condition Condition: STABLE Disposition: Home
[2017-11-21 12:31] LABS: ABS Basophils 0 10^3/ul (0-0.2); ABS Eosinophils 0 10^3/ul (0-0.6); ABS Lymphocytes 0.9 10^3/ul (1.0-4.8); ABS Monocytes 0.6 10^3/ul (0-0.8); ABS Neutrophils 13.3 10^3/ul (1.5-7.7); ABS Nucleated RBC 0 10^3/ul; Eosinophil % 0.2 % (0-6); Hematocrit 25 % (35-47); Hemoglobin 7.8 g/dl (12.0-16.0); Mean Corpuscular HGB Conc 31 g/dl (31-36); Mean Corpuscular Hemoglobin 22 pg (27-31); Mean Corpuscular Volume 70 fL (80-97); Mean Platelet Volume 6.4 um3 (7.4-10.4); Nucleated Red Blood Cells % 0; Platelet Count 498 10^3/ul (150-450); Red Blood Count 3.62 10^6/ul (4.00-5.40); Red Cell Distribution Width 21 % (10.5-15); White Blood Count 14.9 10^3/ul (3.5-10.8)
--- NOTE | 2017-11-21 12:53 | RAD ---
Indication: Abdominal pain. Nausea and vomiting. Comparison: November 05, 2017 CT. Technique: Supine and upright views of the abdomen. Report: Clear visualized lung bases. Negative for free air beneath the diaphragm. Moderate burden of formed stool at the sigmoid colon and rectum. No dilated bowel loops to indicate obstruction. Phlebolith at the level of the RIGHT gonadal vein based on correlation with CT. Aortoiliac vascular calcifications. Unremarkable soft tissue contours. LEFT convex curve and multilevel advanced degenerative spondylosis and facet joint osteoarthritis at the lumbar sacral spine. LEFT total hip replacement. IMPRESSION: #. No acute abdominal pelvic pathologic process evident.
[2017-11-21 13:04] LABS: Urine Appearance Cloudy; Urine Blood Negative (Negative); Urine Color Yellow; Urine Ketones Negative (Negative); Urine Protein 1+(30 mg/dL) (Negative); Urine Red Blood Cell Trace(0-2/hpf) (Absent); Urine Specific Gravity 1.013 (1.010-1.030); Urine Urobilinogen Negative (Negative); Urine White Blood Cell Trace(0-5/hpf) (Absent)
[2017-11-21 14:47] VITALS: BP 142/90
== END 2017-11-21 14:46 | disposition home or self-care (01) ==
LOC: ED 10:56
DX: R11.2 Nausea with vomiting, unspecified (principal); I10 Essential (primary) hypertension; M81.0 Age-related osteoporosis without current pathological fracture; Z87.891 Personal history of nicotine dependence
CPT/HCPCS: 36415; 74019; 80053; 81003; 81015; 82150; 82550; 83605; 83690; 83735; 83880; 84484; 85025; 86140; 87086; 93005; 96360; 99282

== ENCOUNTER 2017-12-10 06:08 | Emergency (ER) | payer MEDICARE, OTHER ==
[2017-12-10] MEDS ORDERED: Ondansetron INJ* 2 MG/ML VIAL IV ONE (06:24)
[2017-12-10] MEDS ORDERED: Famotidine IV* 10 MG/ML 2 ML (20 mg) IV SLOW PU ONE (06:32)
[2017-12-10] MEDS ORDERED: NS 0.9% 1000 ML* 1,000 ML IV ONE (06:33)
--- NOTE | 2017-12-10 06:33 | ED ---
Abdominal Pain/Female - HPI Summary HPI Summary: Patient is an 82-year-old female who presents emergency department for epigastric abdominal pain that started early this morning. Associated symptoms of nausea and vomiting. Patient denies chest pain, shortness of breath, recent illness, fever, urinary symptoms. Patient notes that she has been constipated and has not had a bowel movement in 2 days. Patient states she's had similar symptoms in the past. Denies history of GERD. Pt. denies stool in blood or emesis. Symptoms are moderate in severity. No current modifying factors. Past medical history of hypertension, high cholesterol, diabetes. - History of Current Complaint Chief Complaint: EDAbdPain Stated Complaint: ABD PAIN Time Seen by Provider: 12/10/17 06:22 Hx Obtained From: Patient Pain Intensity: 8 Allergies/Adverse Reactions: Allergies Allergy/AdvReac Type Severity Reaction Status Date / Time No Known Allergies Allergy Verified 12/10/17 06:12 PMH/Surg Hx/FS Hx/Imm Hx Previously Healthy: Yes Endocrine/Hematology History: Reports: Hx Anemia Denies: Hx Diabetes Cardiovascular History: Reports: Hx Hypertension GI History: Denies: Hx Jaundice Musculoskeletal History: Reports: Hx Osteoporosis Denies: Hx Rheumatoid Arthritis Sensory History: Reports: Hx Contacts or Glasses - Left at home Denies: Hx Hearing Aid Opthamlomology History: Reports: Hx Contacts or Glasses - Left at home - Surgical History Surgery Procedure, Year, and Place: LEFT HIP REPLACEMENT Infectious Disease History: No Infectious Disease History: Denies: Traveled Outside the [place] in Last 30 Days - Family History Known Family History: Negative: Hypertension, Diabetes - Social History Occupation: Retired Lives: Alone Alcohol Use: Daily Alcohol Amount: 3/4 beers per day Substance Use Type: Reports: None Smoking Status (MU): Former Smoker Have You Smoked in the Last Year: No Review of Systems Constitutional: Negative Negative: Fever, Chills Eyes: Negative ENT: Negative Cardiovascular: Negative Negative: Palpitations, Chest Pain Respiratory: Negative Negative: Shortness Of Breath, Cough Positive: Abdominal Pain, Vomiting, Nausea, Other - constipation. Negative: Diarrhea Genitourinary: Negative Neurological: Negative All Other Systems Reviewed And Are Negative: Yes Physical Exam Triage Information Reviewed: Yes Vital Signs On Initial Exam: Initial Vitals Temp Pulse Resp BP Pulse Ox 99.1 F 100 16 163/84 99 12/10/17 06:09 12/10/17 06:09 12/10/17 06:09 12/10/17 06:09 12/10/17 06:09 Vital Signs Reviewed: Yes Appearance: Positive: Well-Appearing - Pt. sitting up in NAD. Pleasant. Talkative and answers quesions appropriately. Skin: Positive: Warm, Dry Head/Face: Positive: Normal Head/Face Inspection Eyes: Positive: Normal Neck: Positive: Supple Respiratory/Lung Sounds: Positive: Clear to Auscultation, Breath Sounds Present Cardiovascular: Positive: Normal, RRR Abdomen Description: Positive: Other: - Abdomen is soft throughout with pain to the epigastric region. No rebound tenderness or guarding. No rigidity. Negative Red sign. Neurological: Positive: Normal, CN Intact II-III Psychiatric: Positive: Affect/Mood Appropriate Diagnostics - Vital Signs Vital Signs Temp Pulse Resp BP Pulse Ox 12/10/17 06:19 90 126/78 99 12/10/17 06:09 99.1 F 100 16 163/84 99 - Laboratory Result Diagrams: 12/10/17 07:12 12/10/17 07:12 Lab Statement: Any lab studies that have been ordered have been reviewed, and results considered in the medical decision making process. Abdominal Pain Fem Course/Dx - Course Course Of Treatment: Patient presenting for epigastric abdominal pain. She is afebrile with stable vital signs. Will obtain labs, EKG, CT abd. HR minimally elevated at 100, will start on IV fluids. IV zofran and pepcid ordered. ECG done at 0750 shows a sinus rhythm of 84bpm, normal axis, appropriate intervals, no STEMI. CBC shows H and H of 6.2 and 20. CMP shows K 3.3, BUN 37.9, glucose 191, ca low at 8.1, lipase minimally elevate at 107. Rectal exam performed and no gross bleeding. Occult stool is negative. CT abd/pelvis per radiology: IMPRESSION: #. Suggestion of mural thickening of the distal thoracic esophagus without significant. interval change compared with the January 19, [address] Consider esophagitis as well. as potential neoplasm. Follow-up upper GI series or endoscopy suggested. #. Mild colonic diverticulosis without evidence for acute diverticulitis. Case discussed with Dr. Coley who recommeds hospitalist consult for possible blood transfusion and admission. 1030: Pt. is dressed, standing in hallway requesting to go home. Results were discussed with pt. Advised pt. she may need blood and admission. Pt. states that she wants to go home and does not want to be admitted. Explained to pt. that low H and H could lead to further complications and even . Pt. has decision making capacity and will sign out AGAINST MEDICAL ADVICE. - Diagnoses Differential Diagnosis: Positive: Appendicitis, Bowel Obstruction, Constipation , Diverticulitis, Gall Bladder Disease, Pancreatitis, Renal Colic, Urinary Tract Infection Provider Diagnoses: Anemia, Abdominal pain Discharge - Sign-Out/Discharge Documenting (check all that apply): Patient Departure - Discharge Plan Condition: Stable Disposition: AGAINST MEDICAL ADVICE Referrals: Jamey Goncalves MD [Primary Care Provider] - - Billing Disposition and Condition Condition: STABLE Disposition: Against Medical Advice
[2017-12-10 07:35] LABS: ABS Basophils 0.1 10^3/ul (0-0.2); ABS Eosinophils 0.2 10^3/ul (0-0.6); ABS Monocytes 0.6 10^3/ul (0-0.8); ABS Neutrophils 8.2 10^3/ul (1.5-7.7); ABS Nucleated RBC 0 10^3/ul; Eosinophil % 2.1 % (0-6); Hematocrit 20 % (35-47); Hemoglobin 6.2 g/dl (12.0-16.0); Mean Corpuscular HGB Conc 31 g/dl (31-36); Mean Corpuscular Hemoglobin 23 pg (27-31); Mean Corpuscular Volume 72 fL (80-97); Nucleated Red Blood Cells % 0; Platelet Count 488 10^3/ul (150-450); Red Blood Count 2.76 10^6/ul (4.00-5.40); Red Cell Distribution Width 22 % (10.5-15); White Blood Count 10.1 10^3/ul (3.5-10.8)
[2017-12-10 07:48] LABS: EGFR Non-African American 85.3 (>60)
[2017-12-10] MEDS ORDERED: Iohexol 300* (CONTRAST) 10 ML SDV IV ONE (07:55)
[2017-12-10 09:10] LABS: Urine Appearance Clear; Urine Blood Negative (Negative); Urine Color Colorless; Urine Ketones Negative (Negative); Urine Protein Negative (Negative); Urine Specific Gravity 1.006 (1.010-1.030); Urine Urobilinogen Negative (Negative)
--- NOTE | 2017-12-10 09:16 | RAD ---
INDICATION: Upper abdominal pain. Nausea and vomiting. Significant weight loss in the past year. COMPARISON: November 05, 2017 TECHNIQUE: Multidetector CT images were obtained from the lung bases to the ischial tuberosities with 61 mL Omnipaque 300 IV and oral contrast. Multiplanar reformation. REPORT: VISUALIZED INFERIOR THORAX: Coronary artery calcifications. Mitral annulus calcifications. Negative for cardiomegaly. Circumferential mural thickening of the visualized distal segment of the thoracic esophagus. LIVER / GALLBLADDER / PANCREAS / SPLEEN: Negative for focal liver lesions. Minimal prominence of the central intrahepatic bile ducts without change. Negative for dilatation of the common bile duct. Incompletely distended gallbladder without suspicious CT finding. Mildly atrophic pancreas with associated mild prominence of the pancreatic duct. No focal pancreatic lesions or peripancreatic inflammatory change evident. Unremarkable spleen. ALIMENTARY TRACT: Circumferential mural thickening of the distal thoracic esophagus as noted above. Unremarkable CT appearance of the stomach and duodenum and jejunal and ileal small bowel loops. Unremarkable diminutive medially extending appendix. Enteric contrast extends to the rectum. A few scattered colonic diverticula are noted. Negative for findings of acute diverticulitis. Negative for ascites, free air, hernias. MESENTERIC: Unremarkable. ADRENAL / GENITOURINARY: Normal adrenal glands. Subcentimeter hypodense lesion at the upper pole cortex of the LEFT kidney too small to characterize but without change is most consistent with a benign cyst. Normal variant bilateral extrarenal pelves. Negative for hydronephrosis. Symmetric nephrograms and pyelograms. The distal LEFT ureter is obscured due to artifact from the LEFT hip prosthesis. No abnormality of the visualized ureters evident. The uterus is not visualized most likely secondary to hysterectomy or advanced atrophy/involution. Unremarkable adnexal regions. RETROPERITONEAL: Negative for lymphadenopathy. VASCULAR: Atherosclerotic plaque of normal diameter abdominal aorta and iliac arteries. Physiologic distention of the IVC. BONES: Negative for suspicious osseous lesions. Polyarticular degenerative arthropathy. Degenerative spondylosis is severe at L3-L4 and L2-L3 without change. Facet joint osteoarthritis is severe from L2-L3 through L5-S1. Moderate anterior column osteoporotic compression fracture at T10 is chronic based on comparison with a CT from January 19, 2017. No acute fracture evident. Negative for suspicious focal osseous lesions. SOFT TISSUE: Nonfocal skeletal muscle atrophy. IMPRESSION: #. Suggestion of mural thickening of the distal thoracic esophagus without significant interval change compared with the January 19, [address] Consider esophagitis as well as potential neoplasm. Follow-up upper GI series or endoscopy suggested. #. Mild colonic diverticulosis without evidence for acute diverticulitis.
[2017-12-10 10:32] VITALS: BP 130/80
== END 2017-12-10 10:20 | disposition left against medical advice (07) ==
LOC: ED 06:08
DX: D64.9 Anemia, unspecified (principal); R10.13 Epigastric pain; K57.30 Diverticulosis of large intestine without perforation or abscess without bleeding; Z96.642 Presence of left artificial hip joint; Z87.891 Personal history of nicotine dependence
CPT/HCPCS: 36415; 74177; 80053; 81003; 82272; 82607; 82728; 82746; 83540; 83550; 83605; 83615; 83690; 84484; 85025; 86140; 86850; 86900; 86901; 87040; 93005; 96361; 96374; 96375; 99284; J2405; Q9967

== ENCOUNTER 2017-12-25 09:38 | Emergency (ER) | payer MEDICARE, OTHER ==
--- NOTE | 2017-12-25 11:04 | ED ---
Abdominal Pain/Female - HPI Summary HPI Summary: Pt is an 82 year old female presenting to the ED with a chief complaint of upper abdominal pain, rated at about an 8 or 9 out of 10. The pain is intermittent and worse with vomiting, and the vomiting and nausea has been present for 2-3 weeks, and comes on in the middle of the night. The last time she threw up was yesterday morning. The pt reports a fall around 3 days ago with associated R knee pain, but she can bear weight and does not think it is broken. The pt also reports weight loss recently, fevers present weeks ago, floor-spinning dizziness which is worse upon standing, a LOU in the back of her head rated at an 8 or 9 out of 10, full-body weakness. Pt also reports sinus congestion, clear nasal discharge, occasional sore throat, constant chest congestion, and occasional chest pain. Pt denies difficulty with speaking or vision, ear pain, neck pain, blood in stool, pain with urination, rashes, or tick bites. The pts last bowel movement was 1.5 days ago, she urinates frequently, and also gets dry mouth from dehydration occasionally. The pt spoke with Dr. Bui last week, and states that he thinks she needs to be admitted to the hospital for further medical attention. - History of Current Complaint Chief Complaint: EDAbdPain Stated Complaint: VOMITING Time Seen by Provider: 12/25/17 10:49 Hx Obtained From: Patient Onset/Duration: Gradual Onset, Lasting Weeks, Still Present Timing: Intermittent Episode Lasting Severity Initially: Moderate Severity Currently: Moderate Pain Intensity: 5 Pain Scale Used: 0-10 Numeric Location: Epigastric Radiates: No Aggravating Factor(s): Other: - vomiting Associated Signs and Symptoms: Positive: Cough, Dizzy, Nausea, Vomiting. Negative: Fever, Blood in Stool, Urinary Symptoms, Decreased Appetite, Diarrhea Allergies/Adverse Reactions: Allergies Allergy/AdvReac Type Severity Reaction Status Date / Time No Known Allergies Allergy Verified 12/10/17 06:12 Home Medications: Home Medications Cyanocobalamin INJ * [Vitamin B12 INJ *] 1 dose INJ WEEKLY 12/25/17 [History Confirmed 12/25/17] PMH/Surg Hx/FS Hx/Imm Hx Previously Healthy: No Endocrine/Hematology History: Reports: Hx Anemia Denies: Hx Diabetes Cardiovascular History: Reports: Hx Hypertension GI History: Denies: Hx Jaundice History: Denies: Hx Renal Disease Musculoskeletal History: Reports: Hx Osteoporosis Denies: Hx Rheumatoid Arthritis Sensory History: Reports: Hx Contacts or Glasses - Left at home Denies: Hx Hearing Aid Opthamlomology History: Reports: Hx Contacts or Glasses - Left at home - Surgical History Surgery Procedure, Year, and Place: LEFT HIP REPLACEMENT Infectious Disease History: No Infectious Disease History: Denies: Traveled Outside the [place] in Last 30 Days - Family History Known Family History: Negative: Hypertension, Diabetes - Social History Alcohol Use: Daily Alcohol Amount: 3/4 beers per day Substance Use Type: Reports: None Hx Tobacco Use: Yes Smoking Status (MU): Former Smoker Have You Smoked in the Last Year: No Review of Systems Negative: Fever Negative: Ear Ache Negative: Chest Pain Positive: Cough Positive: Abdominal Pain, Vomiting, Nausea. Negative: Diarrhea Positive: frequency. Negative: dysuria Positive: Myalgia - R knee due to fall Positive: Other - contusion R knee from fall Positive: Headache, Weakness - full body All Other Systems Reviewed And Are Negative: Yes Physical Exam - Summary Physical Exam Summary: General: well-appearing, no pain distress Skin: warm, color reflects adequate perfusion, dry Head: normal Eyes: Mild R beating nystagmus, pt does not get dizzy with eye ROM. ENT: TMs normal, posterior pharynx benign Neck: supple, nontender Respiratory: CTA, breath sounds present Cardiovascular: regular with some occasional ectopic beats Abdomen: mild tenderness in epigastrium Bowel: present Musculoskeletal: strength/ROM intact, positive contusion in R knee, knee has full ROM and is stable to exam Neurological: sensory/motor intact, A&O x3 Psychological: affect/mood appropriate GCS: 15 NIH scale: 0 Triage Information Reviewed: Yes Vital Signs On Initial Exam: Initial Vitals Temp Pulse Resp BP Pulse Ox 99.0 F 115 14 154/92 99 12/25/17 09:40 12/25/17 09:40 12/25/17 09:40 12/25/17 09:40 12/25/17 09:40 Vital Signs Reviewed: Yes Diagnostics - Vital Signs Vital Signs Temp Pulse Resp BP Pulse Ox 12/25/17 09:40 99.0 F 115 14 154/92 99 - Laboratory Result Diagrams: 12/25/17 11:24 12/25/17 11:24 Lab Statement: Any lab studies that have been ordered have been reviewed, and results considered in the medical decision making process. - Radiology No standard instances Xray Interpretation: No Acute Changes - Chest X Ray - no active cardiopulmonary disease is noted. Comparison made with previous exam on 11/05/17. Radiology Interpretation Completed By: Radiologist - ED physician has reviewed this report. - CT No standard instances CT Interpretation: Positive (See Comments) - ABD/PELVIC CT - Cholelithiasis with gallstone in the neck of the gallbladder as well as in the fundus however this appears to BE in similar location on prior exam of October 30, 2017. Distended urinary bladder. Left hip replacement. Multilevel degenerative disc disease in the lumbar spine. Limited examination due to lack of oral and IV contrast. CT Interpretation Completed By: Radiologist - ED physician has reviewed this report. Brain CT CT Interpretation: No Acute Changes - Brain CT Age-appropriate atrophy with no evidence of intracranial mass or hemorrhage. CT Interpretation Completed By: Radiologist - ED physician has reviewed this report. - Ultrasound No standard instances Ultrasound Interpretation: Positive (See Comments) - Gallbladder US - Question of calcification in the wall of the fundus of the gallbladder. No biliary duct dilatation is noted. Ultrasound Interpretation Completed By: Radiologist - ED physician has reviewed this report. - EKG No standard instances Cardiac Rate: NL - 88bpm EKG Rhythm: Sinus Rhythm ST Segment: Normal Ectopy: None National Institutes Of Health - NIH Scale Level of Consciousness: Alert/Keenly Responsive Ask Patient the Month and His/Her Age: Both Correct Ask Pt to Open/Close Eyes and Windows Server Support Technician/Release Non-Paretic Hand: Both Correctly Best Gaze (Only Horizontal Eye Movement): Normal Visual Field Testing: No Visual Loss Facial Paresis-Pt to Smile & Close Eyes or Grimace Symmetry: Normal/Symmetrical Motor Function - Right Arm: No Drift-Holds 10 Seconds Motor Function - Left Arm: No Drift-Holds 10 Seconds Motor Function - Right Leg: No Drift-Holds 10 Seconds Motor Function - Left Leg: No Drift-Holds 10 Seconds Limb Ataxia-Must be out of Proportion to Weakness Present: Absent Sensory (Use Pinprick to Test Arms/Legs/Trunk/Face): Normal Best Language (Describe Picture, Name Items): No Aphasia Dysarthria (Read Several Words): Normal Extinction and Inattention: No Abnormality Total Score: 0 Re-Evaluation - Re-Evaluation 1 Re-Evaluation Time: 16:31 Change: Improved Comment: Discussed results of ultrasound with the pt, she would like to go home and follow up with Dr. Bui as an outpatient. Abdominal Pain Fem Course/Dx - Course Course Of Treatment: DISCUSSED RESULTS WITH THE PATIENT. ELEVATED WBC WITHOUT INFECTIOUS SOURCE FOUND. DISCUSSED ADMISSION VERSES OUT PATIENT F/U WITH DR BUI. THE PATIENT PREFERS OUT PATIENT F/U. RX OMEPRAZOLE AND ZOFRAN. DISUSSED RETURNING TO ED IF WORSE. - Diagnoses Provider Diagnoses: HTN (hypertension), Upper abdominal pain, Vomiting, Dizziness, Headache Discharge - Sign-Out/Discharge Documenting (check all that apply): Patient Departure - Discharge Plan Condition: Stable Disposition: HOME Prescriptions: Omeprazole CAP* [Prilosec CAP* 20 MG] 20 mg PO BID #30 cap. Ondansetron ODT TAB* [Zofran 4 MG Odt TAB*] 4 mg PO Q6H PRN #10 tab.odt PRN Reason: Nausea Patient Education Materials: Acute Nausea and Vomiting (ED), Abdominal Pain (ED ), Epigastric Pain (ED) Referrals: Jamey Bui MD [Primary Care Provider] - Additional Instructions: FOLLOW UP WITH DR BUI THIS WEEK SCHEDULED. GET RECHECKED FOR ANY WORSENING OF YOUR CONDITION; PAIN, FEVER, YOU FEEL ILL OR QUESTIONS OR CONCERNS. - Billing Disposition and Condition Condition: STABLE Disposition: Home - Attestation Statements Document Initiated by Ed: Yes Documenting Scribe: Darshana Robert Provider For Whom Ed is Documenting (Include Credential): Everette Gómez MD. Scribe Attestation: I, zuri Johned for Everette Gómez MD. on 12/25/17 at 1928. Scribe Documentation Reviewed: Yes Provider Attestation: The documentation as recorded by the Darshana tovar accurately reflects the service I personally performed and the decisions made by me, Everette Gómez MD. Consult Consult: [id number] - Spoke with Dr. Bui about evaluating patient and patient claims that he wants her to be admitted. He said that he may have said that, but is unsure, and wants to proceed with evaluation.
[2017-12-25] MEDS ORDERED: Meclizine TAB* 12.5 MG PO ONE (11:17)
[2017-12-25] MEDS ORDERED: NS 0.9% 1000 ML* 1,000 ML IV ONE (11:17)
[2017-12-25 11:42] LABS: ABS Basophils 0 10^3/ul (0-0.2); ABS Eosinophils 0 10^3/ul (0-0.6); ABS Lymphocytes 0.8 10^3/ul (1.0-4.8); ABS Monocytes 0.4 10^3/ul (0-0.8); ABS Neutrophils 15.6 10^3/ul (1.5-7.7); ABS Nucleated RBC 0 10^3/ul; Eosinophil % 0.1 % (0-6); Hematocrit 22 % (35-47); Hemoglobin 6.8 g/dl (12.0-16.0); Lymphocyte % 4.7 % (25-47); Mean Corpuscular HGB Conc 31 g/dl (31-36); Mean Corpuscular Hemoglobin 22 pg (27-31); Mean Corpuscular Volume 70 fL (80-97); Mean Platelet Volume 6.2 um3 (7.4-10.4); Nucleated Red Blood Cells % 0; Platelet Count 693 10^3/ul (150-450); Red Blood Count 3.14 10^6/ul (4.00-5.40); Red Cell Distribution Width 21 % (10.5-15); White Blood Count 16.9 10^3/ul (3.5-10.8)
[2017-12-25 11:44] LABS: INR 0.81 (0.77-1.02)
[2017-12-25 11:53] LABS: EGFR Non-African American 58.2 (>60)
--- NOTE | 2017-12-25 12:18 | RAD ---
Indication: Cough, weight loss. Single frontal view of the chest performed at 1145 hours was reviewed. Comparison is made with previous exam dated November 05, 2017. No mediastinal shift is noted. Heart is of normal size and configuration. Lung mad[place] appear clear. IMPRESSION: NO ACTIVE CARDIOPULMONARY DISEASE IS NOTED.
--- NOTE | 2017-12-25 13:05 | RAD ---
Indication: Headaches, dizziness. CT of the brain performed without IV contrast. Comparison is made with previous exam dated January 29, 2017. Ventricular structures are midline. No midline shift is noted. Central and cortical atrophy is noted. There is no evidence of intracranial mass or hemorrhage. No other high or low density lesions are identified. Mastoid air cells and paranasal sinuses are otherwise unremarkable. IMPRESSION: Age-appropriate atrophy with no evidence of intracranial mass or hemorrhage.
--- NOTE | 2017-12-25 13:24 | RAD ---
Indication: Upper abdominal pain. CT of the abdomen and pelvis was performed without oral or IV contrast administration. Coronal and sagittal reconstructed images were obtained. Comparison is made with previous exam dated October 31, 2017. Lung mad[place] demonstrate hyperinflation with no evidence of nodules or alveolar consolidation. Heart demonstrates no pericardial effusion. Intimal calcifications are noted in the abdominal aorta. Liver is normal in size. No focal lesions or intrahepatic duct dilatation is noted although streak artifact is noted limiting evaluation. The gallbladder is distended. A gallstone is noted in the fundus of the gallbladder as well as in the neck of the gallbladder. No definite pericholecystic fluid is noted. Correlation with physical exam is suggested. The common duct is not dilated. The pancreas demonstrates no mass or pancreatic duct dilatation. The spleen is normal in size. No adrenal masses are noted. The kidneys demonstrate no hydronephrosis. Atherosclerotic aorta is noted. No dilated loops of bowel are noted. CT of the pelvis demonstrates atherosclerotic aorta. Markedly distended urinary bladder is noted. No hernias are identified. Patient is status post hysterectomy. The bony structures demonstrate multilevel degenerative disc disease. IMPRESSION: Cholelithiasis with gallstone in the neck of the gallbladder as well as in the fundus however this appears to BE in similar location on prior exam of October 30, 2017. Distended urinary bladder. Left hip replacement. Multilevel degenerative disc disease in the lumbar spine. Limited examination due to lack of oral and IV contrast.
[2017-12-25 16:05] LABS: Urine Appearance Clear; Urine Blood Negative (Negative); Urine Color Colorless; Urine Ketones Negative (Negative); Urine Protein Negative (Negative); Urine Specific Gravity 1.003 (1.010-1.030); Urine Urobilinogen Negative (Negative)
--- NOTE | 2017-12-25 16:20 | RAD ---
Indication: Upper abdominal pain. Real-time sonography of the right upper quadrant was performed. The liver is normal in size. No focal lesions or intrahepatic duct dilatation noted. The gallbladder demonstrates echogenic focus in the fundus which may represent a calcification in the wall of the fundus. No evidence of gallstones are noted in the neck of the gallbladder. No pericholecystic fluid or wall thickening is noted. The common duct measures up to 0.6 cm. Right kidney measures 9.4 x 4.3 x 3.7 cm with an extrarenal pelvis. The pancreas demonstrates no mass or pancreatic duct dilatation where visualized. IMPRESSION: Question of calcification in the wall of the fundus of the gallbladder. No biliary duct dilatation is noted.
[2017-12-25] MEDS ORDERED: Omeprazole CAP* 20 MG PO ONE ×2 (16:32→16:34)
[2017-12-25] MEDS ORDERED: O ndansetron ODT 4MG 2TAB PRPK 4 MG PAK PO ONE (16:33)
[2017-12-25] MEDS ORDERED: Ondansetron ODT TAB* 4 MG ONE (16:43)
[2017-12-25 17:01] VITALS: BP 133/58
== END 2017-12-25 16:59 | disposition home or self-care (01) ==
LOC: ED 09:38
DX: I10 Essential (primary) hypertension (principal); R10.9 Unspecified abdominal pain; R11.2 Nausea with vomiting, unspecified; R42 Dizziness and giddiness; R51 Headache; Z87.891 Personal history of nicotine dependence; R53.1 Weakness
CPT/HCPCS: 36415; 70450; 71045; 74176; 76705; 80053; 81003; 82140; 82270; 82550; 82553; 83605; 83690; 83735; 83880; 84443; 84484; 85025; 85379; 85610; 85730; 86140; 93005; 99284; A9270-GY

== ENCOUNTER 2018-02-13 15:01 | Inpatient (IN) | payer MEDICARE, OTHER ==
[2018-02-13] MEDS ORDERED: Diltiazem IV* 5 MG/ML 5 ML VIAL (for loading dose/IV Push) (25 MG) IV SLOW PU ONE ×2 (15:50→18:22)
--- NOTE | 2018-02-13 16:21 | RAD ---
INDICATION: Palpitations. COMPARISON: Comparison is made with a prior study from December 25, 2017. TECHNIQUE: Dual-energy PA views of the chest were obtained. FINDINGS: The heart is within normal limits in size. Mediastinal and hilar contours appear within normal limits. The lungs are clear. No pleural effusion is present. IMPRESSION: NO EVIDENCE FOR ACTIVE CARDIOPULMONARY DISEASE.
[2018-02-13 16:47] LABS: Hematocrit 36 % (35-47); Hemoglobin 11.8 g/dl (12.0-16.0); Mean Corpuscular HGB Conc 32 g/dl (31-36); Mean Corpuscular Hemoglobin 27 pg (27-31); Mean Corpuscular Volume 84 fL (80-97); Mean Platelet Volume 7.1 um3 (7.4-10.4); Platelet Count 472 10^3/ul (150-450); Red Cell Distribution Width 24 % (10.5-15); White Blood Count 18.6 10^3/ul (3.5-10.8)
[2018-02-13 16:52] LABS: INR 1.13 (0.77-1.02)
[2018-02-13 17:06] LABS: EGFR Non-African American 50.5 (>60)
[2018-02-13 17:24] LABS: ABS Basophils 0 10^3/ul (0-0.2); ABS Eosinophils 0 10^3/ul (0-0.6); ABS Lymphocytes 0.6 10^3/ul (1.0-4.8); ABS Monocytes 0.3 10^3/ul (0-0.8); ABS Neutrophils 17.7 10^3/ul (1.5-7.7); ABS Nucleated RBC 0 10^3/ul; Eosinophil % 0 % (0-6); Lymphocyte % 3.1 % (25-47); Nucleated Red Blood Cells % 0
[2018-02-13] MEDS ORDERED: Diltiazem IV VIAL* 125 MG in NS 0.9% 100 ML* 100 ML IVPB ONE (17:59)
[2018-02-13] MEDS: Potassium Chlor TAB* 20 MEQ TAB.ER PO ONE ×2 (18:13→18:30)
[2018-02-13] MEDS ORDERED: Diltiazem IV* 5 MG/ML 5 ML VIAL (for loading dose/IV Push) (25 MG) ONE (18:22)
[2018-02-13] MEDS ORDERED: NS 0.9% 500 ML* 500 ML IV ONE (18:26)
[2018-02-13] MEDS ORDERED: Magnesium Sulfate 2 GM IV* 2 GM/50 ML BAG IVPB ONE (18:28)
[2018-02-13] MEDS ORDERED: Ondansetron INJ* 2 MG/ML VIAL IV PRN (18:43)
[2018-02-13] MEDS ORDERED: Diltiazem DRIP* 100 MG/100 ML ADDV.BAG IVPB ONE (19:00)
--- NOTE | 2018-02-13 19:46 | ED ---
Complex/Multi-Sys Presentation - HPI Summary HPI Summary: Patient is a 82 y/o F BIBA w/ c/o abdominal pain. In the room, she states she cannot remember why she was brought into ED. On the monitor, patient is in rapid afib. EMS gave patient fluids. In the room, patient denies Hx of irregular heart rate, states she has never been on blood thinners. Patient notes chronic bruises at BLE, states that she has recently dropped from 148 lbs to 102 lbs. She reports intermittent episodes of dizziness and light- headedness. She denies fever, chills, LOU, ear pain, sore throat, blurred vision , double vision, neck pain, CP, SOB, back pain, dysuria, hematuria, blood in the stool, edema, rashes, anxiety, and depression. On triage, pain is rated 3/10 , nothing is reported to alleviate/aggravate Sx. Home medications and allergies are reviewed. - History Of Current Complaint Chief Complaint: EDAbdPain Hx Obtained From: Patient Onset/Duration: Still Present Timing: Constant, Intermittent, Lasting: - dizziness/light-headedness Severity Currently: Mild - 3/10 Location: Pain At: - abdomen Aggravating Factor(s): nothing Alleviating Factor(s): nothing Associated Signs And Symptoms: Positive: Dizziness, Palpitations, Other - she denies chills, ear pain, sore throat, blurred vision, double vision, neck pain, dysuria, hematuria, blood in the stool, bruising, rashes, anxiety, and depression. Negative: Headache, SOB, Chest Pain, Edema, Abdominal Pain, Back Pain, Fever - Allergies/Home Medications Allergies/Adverse Reactions: Allergies Allergy/AdvReac Type Severity Reaction Status Date / Time No Known Allergies Allergy Verified 02/13/18 15:50 PMH/Surg Hx/FS Hx/Imm Hx Endocrine/Hematology History: Reports: Hx Anemia Denies: Hx Diabetes Cardiovascular History: Reports: Hx Hypertension GI History: Denies: Hx Jaundice History: Denies: Hx Renal Disease Musculoskeletal History: Reports: Hx Osteoporosis Denies: Hx Rheumatoid Arthritis Sensory History: Reports: Hx Contacts or Glasses - Left at home Denies: Hx Hearing Aid Opthamlomology History: Reports: Hx Contacts or Glasses - Left at home - Surgical History Surgery Procedure, Year, and Place: LEFT HIP REPLACEMENT Infectious Disease History: No Infectious Disease History: Denies: Traveled Outside the [place] in Last 30 Days - Family History Known Family History: Negative: Hypertension, Diabetes - Social History Alcohol Use: Daily Alcohol Amount: 2 beer/night Substance Use Type: Reports: None Hx Tobacco Use: Yes Smoking Status (MU): Former Smoker Have You Smoked in the Last Year: No Review of Systems Positive: Other - recent weight loss . Negative: Fever, Chills Positive: Other - NEGATIVE: double vision . Negative: Blurred Vision Negative: Sore Throat, Ear Ache Positive: Other - afib on monitor . Negative: Chest Pain Negative: Shortness Of Breath Positive: Abdominal Pain Positive: other - NEGATIVE: blood in stool . Negative: dysuria, hematuria Positive: Other - NEGATIVE: back/neck pain . Negative: Edema Positive: Bruising - chronic at BLE . Negative: Rash Neurological: Other - POSITIVE: dizziness, lightheadedness Negative: Headache Negative: Anxious, Depressed All Other Systems Reviewed And Are Negative: No Physical Exam - Summary Physical Exam Summary: Appearance: Alert, conversive, nontoxic appearing Skin: Warm, dry, no mottling, no rashes, no contusions HEENT: EOMI, PERRL, moist mucous membranes Neck: No masses on the neck, supple Respiratory: Clear to auscultation, breath sounds present, no rales, no rhonchi , no wheezes Cardiovascular: irregularly irregular and tachycardic, pulses are symmetrical in both lower and upper extremities Abdomen: Soft, non-tender Bowel Sounds: Present Musculoskeletal: No CVA tenderness, no obvious deformity, moving all extremities in a grossly normal manner Neurological: A&Ox3, CN II-XII Intact, moving all extremities symmetrically Psychiatric: Normal affect and mood Triage Information Reviewed: Yes Vital Signs On Initial Exam: Initial Vitals Temp Pulse Resp BP Pulse Ox 99.2 F 118 18 146/78 99 02/13/18 15:02 02/13/18 15:02 02/13/18 15:02 02/13/18 15:02 02/13/18 15:02 Vital Signs Reviewed: Yes Diagnostics - Vital Signs Vital Signs Temp Pulse Resp BP Pulse Ox 02/13/18 18:47 106 22 148/81 100 02/13/18 18:32 118 31 123/85 100 02/13/18 18:17 139 24 167/84 99 02/13/18 18:02 105 28 170/121 99 02/13/18 18:00 113 19 99 02/13/18 17:50 99.2 F 02/13/18 17:47 131 19 98 02/13/18 17:32 103 20 133/97 98 02/13/18 17:17 110 21 151/88 99 02/13/18 17:02 108 22 164/76 96 02/13/18 17:00 117 21 100 02/13/18 16:47 111 24 140/79 99 02/13/18 16:32 94 22 140/72 100 02/13/18 16:12 93 23 181/88 99 02/13/18 16:11 79 26 99 02/13/18 15:41 90 26 131/106 02/13/18 15:02 99.2 F 118 18 146/78 99 - Laboratory Lab Results: Lab Results 02/13/18 02/13/18 02/13/18 Range/Units 16:36 16:36 16:36 WBC 18.6 H (3.5-10.8) 10^3/ul RBC 4.30 (4.00-5.40) 10^6/ul Hgb 11.8 L (12.0-16.0) g/dl Hct 36 (35-47) % MCV 84 (80-97) fL MCH 27 (27-31) pg MCHC 32 (31-36) g/dl RDW 24 H (10.5-15) % Plt Count 472 H (150-450) 10^3/ul MPV 7.1 L (7.4-10.4) um3 Neut % (Auto) 95.1 H (38-83) % Lymph % (Auto) 3.1 L (25-47) % Wirt % (Auto) 1.7 (0-7) % Eos % (Auto) 0 (0-6) % Baso % (Auto) 0.1 (0-2) % Absolute Neuts (auto) 17.7 H (1.5-7.7) 10^3/ul Absolute Lymphs (auto) 0.6 L (1.0-4.8) 10^3/ul Absolute Monos (auto) 0.3 (0-0.8) 10^3/ul Absolute Eos (auto) 0 (0-0.6) 10^3/ul Absolute Basos (auto) 0 (0-0.2) 10^3/ul Absolute Nucleated RBC 0 10^3/ul Nucleated RBC % 0 Hem Pathologist Commnt Pending INR (Anticoag Therapy) (0.77-1.02) APTT (26.0-36.3) seconds Sodium 139 (135-145) mmol/L Potassium 3.2 L (3.5-5.0) mmol/L Chloride 106 (101-111) mmol/L Carbon Dioxide 20 L (22-32) mmol/L Anion Gap 13 H (2-11) mmol/L BUN 17 (6-24) mg/dL Creatinine 1.04 H (0.51-0.95) mg/dL Est GFR ( Amer) 61.1 (>60) Est GFR (Non-Af Amer) 50.5 (>60) BUN/Creatinine Ratio 16.3 (8-20) Glucose 246 H (70-100) mg/dL Calcium 8.5 L (8.6-10.3) mg/dL Magnesium 1.5 L (1.9-2.7) mg/dL Total Bilirubin 0.20 (0.2-1.0) mg/dL AST 16 (13-39) U/L ALT 10 (7-52) U/L Alkaline Phosphatase 54 (34-104) U/L Troponin I 0.01 (<0.04) ng/mL C-Reactive Protein 3.10 (<8.01) mg/L B-Natriuretic Peptide 167 H ( - 100) pg/mL Total Protein 7.4 (6.4-8.9) g/dL Albumin 3.8 (3.2-5.2) g/dL Globulin 3.6 (2-4) g/dL Albumin/Globulin Ratio 1.1 (1-3) TSH 2.35 (0.34-5.60) mcIU/mL 02/13/18 Range/Units 16:36 WBC (3.5-10.8) 10^3/ul RBC (4.00-5.40) 10^6/ul Hgb (12.0-16.0) g/dl Hct (35-47) % MCV (80-97) fL MCH (27-31) pg MCHC (31-36) g/dl RDW (10.5-15) % Plt Count (150-450) 10^3/ul MPV (7.4-10.4) um3 Neut % (Auto) (38-83) % Lymph % (Auto) (25-47) % Wirt % (Auto) (0-7) % Eos % (Auto) (0-6) % Baso % (Auto) (0-2) % Absolute Neuts (auto) (1.5-7.7) 10^3/ul Absolute Lymphs (auto) (1.0-4.8) 10^3/ul Absolute Monos (auto) (0-0.8) 10^3/ul Absolute Eos (auto) (0-0.6) 10^3/ul Absolute Basos (auto) (0-0.2) 10^3/ul Absolute Nucleated RBC 10^3/ul Nucleated RBC % Hem Pathologist Commnt INR (Anticoag Therapy) 1.13 H (0.77-1.02) APTT 33.4 (26.0-36.3) seconds Sodium (135-145) mmol/L Potassium (3.5-5.0) mmol/L Chloride (101-111) mmol/L Carbon Dioxide (22-32) mmol/L Anion Gap (2-11) mmol/L BUN (6-24) mg/dL Creatinine (0.51-0.95) mg/dL Est GFR ( Amer) (>60) Est GFR (Non-Af Amer) (>60) BUN/Creatinine Ratio (8-20) Glucose (70-100) mg/dL Calcium (8.6-10.3) mg/dL Magnesium (1.9-2.7) mg/dL Total Bilirubin (0.2-1.0) mg/dL AST (13-39) U/L ALT (7-52) U/L Alkaline Phosphatase (34-104) U/L Troponin I (<0.04) ng/mL C-Reactive Protein (<8.01) mg/L B-Natriuretic Peptide ( - 100) pg/mL Total Protein (6.4-8.9) g/dL Albumin (3.2-5.2) g/dL Globulin (2-4) g/dL Albumin/Globulin Ratio (1-3) TSH (0.34-5.60) mcIU/mL Result Diagrams: 02/13/18 16:36 02/13/18 16:36 Lab Statement: Any lab studies that have been ordered have been reviewed, and results considered in the medical decision making process. - Radiology CXR Radiology Interpretation Completed By: Radiologist Summary of Radiographic Findings: CXR showed no evidence for active cardiopulmonary disease. This report was reviewed by ED physician. - EKG 1615 Cardiac Rate: Other Rate - rate of 132 BPM EKG Rhythm: Atrial Fibrillation Summary of EKG Findings: afib with rvr, rate of 132 BPM, normal QRS, normal QTC , ST depression in inferior leads 2, 3, avf, v3-v6 Re-Evaluation - Re-Evaluation First Eval Re-Evaluation Time: 18:20 Comment: Labs and tests discussed with patient. Patient is agreeable with admission. Complex Multi-Symp Course/Dx Course Of Treatment: Patient is a 82 y/o F BIBA w/ c/o abdominal pain. In the room, she states she cannot remember why she was brought into ED. On the monitor , patient is in rapid afib. EMS gave patient fluids. In the room, patient denies Hx of irregular heart rate, states she has never been on blood thinners. Patient notes chronic bruises at BLE, states that she has recently dropped from 148 lbs to 102 lbs. She reports intermittent episodes of dizziness and light- headedness. On physical exam, patient is noted to be tachycardia and have irregularly irregular rhythm. During ED course, patient received fluids, Klor Con Er tab 40 meq, magnesium sulfate 2 Gm IV, Diltiazem 15 mg IV x2. CXR showed no evidence for active cardiopulmonary disease. EKG showed with afib rvr rate of 132, normal QRS, QTC, ST depression inferior 2,3 avf, v3-v6. Labs showed WBC 18.6, Plt count 472, INR 1.13, creatinine 1.04, anion gap 13, carbon dioxide 20 , potassium 3.2, glucose 246, lactic acid 1.1, calcium 8.5, magnesium 1.5, trop 0.01, CRP 3.1, BNP 167, TSH 2.35. UA showed trace ketones, 2+ blood, 2+ leukocyte esterase, 2+ WBC, 2+ RBC, squamous epith cells present. Patient's case was discussed with Dr. Jaimes at 1825, Dr. Jaimes accepts patient for admission. Patient is agreeable with admission. Dx of afib with RVR. - Diagnoses Provider Diagnoses: Atrial fibrillation with RVR - Physician Notifications Discussed Care Of Patient With: Jm Jaimes Time Discussed With Above Provider: 18:25 Instructed by Provider To: Other - Patient's case was discussed with Dr. Jaimes at 1825, Dr. Jaimes accepts patient for admission. Discharge - Sign-Out/Discharge Documenting (check all that apply): Patient Departure - admit All imaging exams completed and their final reports reviewed: Yes - Discharge Plan Condition: Good Disposition: ADMITTED TO [facility] - Billing Disposition and Condition Condition: GOOD Disposition: Admitted to [facility] - Attestation Statements Document Initiated by Chavoe: Yes Documenting Scribe: Phong Curry Provider For Whom Chavoe is Documenting (Include Credential): Samira Kaba MD Scribe Attestation: IPhong , scribed for Samira Kaba MD on 02/13/18 at 2038. Scribe Documentation Reviewed: Yes Provider Attestation: The documentation as recorded by the Phong tovar accurately reflects the service I personally performed and the decisions made by me, Samira Kaba MD
[2018-02-13 20:17] LABS: Urine Appearance Clear; Urine Blood 2+ (Negative); Urine Color Amber; Urine Ketones Trace (Negative); Urine Protein Negative (Negative); Urine Red Blood Cell 2+(6-10/hpf) (Absent); Urine Urobilinogen Negative (Negative); Urine White Blood Cell 2+(11-20/hpf) (Absent)
[2018-02-13] MEDS: KCL 20 MEQ/100 ML IVPREMIX* 20 MEQ/100 ML BAG IV SCH ×2 (20:35→23:46)
[2018-02-13] MEDS ORDERED: Omeprazole CAP* 20 MG PO SCH (21:00)
[2018-02-13] MEDS ORDERED: PROCHLORPERAZINE INJ 5 MG/ML 2 ML VIAL IV PRN (21:07)
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
[2018-02-13] MEDS: Pantoprazole IV* 40 MG IV SCH (21:35)
[2018-02-13] MEDS: Heparin VIAL(*) 5000 UNITS/ML VIAL (FIVE THOUSAND) SUBCUT SCH (22:04)
[2018-02-13] MEDS: cefTRIAXone VIAL(*) 1,000 MG in NS 0.9% 50 ML* 50 ML IVPB SCH (23:18)
[2018-02-14] MEDS: NS 0.9% 1000 ML* 1,000 ML IV SCH ×2 (02:25→16:41)
[2018-02-14] MEDS ORDERED: NS 0.9% 100 ML* 0 ML ONE (03:48)
[2018-02-14] MEDS: Diltiazem IV VIAL* 125 MG in NS 0.9% 100 ML* 100 ML IV SCH ×2 (03:57→16:41)
[2018-02-14] MEDS: Heparin VIAL(*) 5000 UNITS/ML VIAL (FIVE THOUSAND) SUBCUT SCH ×3 (06:19→21:58)
[2018-02-14] MEDS: Acetaminophen TAB* 325 MG PO PRN ×3 (06:29→21:55)
[2018-02-14 07:04] LABS: EGFR Non-African American 59.7 (>60)
[2018-02-14 07:05] LABS: ABS Basophils 0 10^3/ul (0-0.2); ABS Eosinophils 0 10^3/ul (0-0.6); ABS Lymphocytes 1.1 10^3/ul (1.0-4.8); ABS Monocytes 0.8 10^3/ul (0-0.8); ABS Neutrophils 13.3 10^3/ul (1.5-7.7); ABS Nucleated RBC 0 10^3/ul; Eosinophil % 0 % (0-6); Hematocrit 29 % (35-47); Hemoglobin 9.4 g/dl (12.0-16.0); Lymphocyte % 7.3 % (25-47); Mean Corpuscular HGB Conc 33 g/dl (31-36); Mean Corpuscular Hemoglobin 28 pg (27-31); Mean Corpuscular Volume 84 fL (80-97); Mean Platelet Volume 7.1 um3 (7.4-10.4); Nucleated Red Blood Cells % 0; Platelet Count 367 10^3/ul (150-450); Red Blood Count 3.43 10^6/ul (4.00-5.40); Red Cell Distribution Width 24 % (10.5-15); White Blood Count 15.2 10^3/ul (3.5-10.8)
[2018-02-14] MEDS ORDERED: Pantoprazole IV* 40 MG IV SCH (09:00)
[2018-02-14] MEDS: Pantoprazole IV* 40 MG IV SCH ×2 (09:24→21:56)
--- NOTE | 2018-02-14 11:22 | ECHO ---
Patient: SIMONE SHEEHAN [facility] Rec#: [id number] : 1935 Date: 02/14/2018 Age: 82y Height: 162.56 cm / 64.0 in Weight: 46.27 kg / 102.0 lbs Sex: F BSA: 1.47 Room#: [facility] Admit Date#: 02/13/2018 Type: Inpatient Referring: Magaly Villela NP Reading: Manoj Tapia MD Tool And Die Machinist: Мария Childs RDCS CC: Jamey Goncalves MD Transthoracic Echocardiogram Indication: Abnormal EKG, A-Fib BP: 116/58 HR: 92 Rhythm: NSR with PACs Findings History: HTN, HLD, DM, anemia, erosive esophagitis, recent weight loss of 40 pounds. Technical Comments: The study quality is good. Completed at 0945. Left Ventricle: The left ventricular chamber size is normal. There is no left ventricular hypertrophy. Global left ventricular wall motion and contractility are within normal limits. There is normal left ventricular systolic function. The estimated ejection fraction is 55-60%. Abnormal left ventricular diastolic function is observed. Abnormal left ventricular diastolic filling is observed, consistent with impaired relaxation. Left Atrium: The left atrium is moderate to severely dilated. Right Ventricle: Moderator Band present. The right ventricular cavity size is normal. The right ventricular global systolic function is normal. Right Atrium: The right atrium is mildly dilated. Aortic Valve: The aortic valve is trileaflet. The aortic valve leaflets are mildly thickened. There is evidence of aortic sclerosis without stenosis. There is a trace of aortic regurgitation. There is no evidence of aortic stenosis. Mitral Valve: There is mitral annular calcification. The mitral valve leaflets are mildly thickened. There is trace to mild mitral regurgitation. There is no evidence of mitral stenosis. Tricuspid Valve: The tricuspid valve leaflets are mildly thickened. There is mild tricuspid regurgitation. The right ventricular systolic pressure is estimated at 28 mmHg. No pulmonary hypertension is noted. There is no tricuspid stenosis. Pulmonic Valve: The pulmonic valve appears normal. There is trace to mild pulmonic regurgitation. There is no pulmonic stenosis. Pericardium: There is no significant pericardial effusion. Aorta: There is no dilatation of the ascending aorta. There is no dilatation of the aortic arch. The aortic root is normal in size. Pulmonary Artery: The main pulmonary artery appears normal. Venous: The inferior vena cava appears normal in size. There is a greater than 50% respiratory change in the inferior vena cava dimension. Summary: There was not any prior study for comparison. Conclusions Global left ventricular wall motion and contractility are within normal limits. There is normal left ventricular systolic function. The estimated ejection fraction is 55-60%. There is evidence of aortic sclerosis without stenosis. There is a trace of aortic regurgitation. There is trace to mild mitral regurgitation. There is mild tricuspid regurgitation. No pulmonary hypertension is noted. There is no significant pericardial effusion. Measurements Name Value Normal Range RVIDd (AP) 2D 3.9 cm (0.9 - 2.6) RVDdMajor (2D) 3.5 cm (2.2 - 4.4) RAd ISD 4CH 5.1 cm (3.4 - 4.9) RA (A4C)W 4.1 cm (2.9 - 4.6) IVSd (2D) 1 cm (0.6 - 1) LVPWd (2D) 1 cm (0.6 - 1) LVIDd (2D) 4.5 cm (3.6 - 5.4) LVIDs (2D) 4 cm - LV FS (2D) 12 % (25 - 45) Aortic Annulus 1.8 cm (1.4 - 2.6) Ao root diameter (2D) 3.1 cm (2.1 - 3.5) Ascending Ao 2.9 cm (2.1 - 3.4) Aortic arch 2.5 cm (1.8 - 3.4) LA dimension (AP) 2D 4 cm (2.3 - 3.8) LAd ISD 4CH 4.7 cm (2.9 - 5.3) LA ISD 4CH W 5.2 cm (2.5 - 4.5) Name Value Normal Range LA ESV SP 4CH (A/L) 78 ml - LA ESV SP 2CH (A/L) 49 ml - LA ESV BP (A/L) 70 ml - LA ESV BP (A/L) index 48 ml/m2 - LA ESV SP 4CH (MOD) 72 ml - LA ESV SP 2CH (MOD) 40 ml - Name Value Normal Range MV E-wave Vmax 1.05 m/sec - MV deceleration time 198.3 msec - MV A-wave Vmax 1.3 m/sec - MV E:A ratio 0.8 ratio - LV septal e' Vmax 0.07 m/sec - LV lateral e' Vmax 0.09 m/sec - LV E:e' septal ratio 15 ratio - LV E:e' lateral ratio 11.67 ratio - Name Value Normal Range AV Vmax 1.8 m/sec - AV VTI 37 cm - AV peak gradient 13 mmHg - AV mean gradient 7.57 mmHg - LVOT diameter 2 cm - LVOT Vmax 0.8 m/sec - LVOT VTI 16.84 cm - LVOT peak gradient 2.56 mmHg - LVOT mean gradient 1.45 mmHg - VIKAS Vmax 0.6 m/sec - Name Value Normal Range TR Vmax 2.5 m/sec - TR peak gradient 25 mmHg - RAP 3 mmHg - RVSP 28 mmHg - IVC diameter 1.7 cm - Name Value Normal Range PV Vmax 1.07 m/sec - PV peak gradient 4.64 mmHg -
[2018-02-14] MEDS ORDERED: Acetaminophen TAB* 325 MG PO ONE (21:39)
[2018-02-14] MEDS: Diltiazem TAB* 60 MG PO SCH (21:54)
[2018-02-14] MEDS: cefTRIAXone VIAL(*) 1,000 MG in NS 0.9% 50 ML* 50 ML IVPB SCH (21:56)
[2018-02-15] MEDS: Diltiazem TAB* 60 MG PO SCH ×5 (05:21→23:34)
[2018-02-15] MEDS: Heparin VIAL(*) 5000 UNITS/ML VIAL (FIVE THOUSAND) SUBCUT SCH ×2 (05:21→14:08)
[2018-02-15 06:02] LABS: Immature Retic Fraction 0.42; RBC Retic Count 3.32 10^6/ul (4.6-6.2); Red Blood Count 3.32 10^6/ul (4.00-5.40)
[2018-02-15 06:04] LABS: ABS Basophils 0 10^3/ul (0-0.2); ABS Eosinophils 0 10^3/ul (0-0.6); ABS Lymphocytes 1.6 10^3/ul (1.0-4.8); ABS Monocytes 0.4 10^3/ul (0-0.8); ABS Neutrophils 5.4 10^3/ul (1.5-7.7); ABS Nucleated RBC 0 10^3/ul; Corrected Retic Count 0.5 % (0.5-1.5); Eosinophil % 0.5 % (0-6); Hematocrit 28 % (35-47); Hematocrit for Retic CNT 28 % (35-47); Hemoglobin 9.2 g/dl (12.0-16.0); Lymphocyte % 21.2 % (25-47); Mean Corpuscular HGB Conc 33 g/dl (31-36); Mean Corpuscular Hemoglobin 28 pg (27-31); Mean Corpuscular Volume 85 fL (80-97); Nucleated Red Blood Cells % 0.1; Platelet Count 310 10^3/ul (150-450); Red Cell Distribution Width 24 % (10.5-15); White Blood Count 7.5 10^3/ul (3.5-10.8)
[2018-02-15 06:16] LABS: EGFR Non-African American 71.4 (>60)
[2018-02-15] MEDS: Pantoprazole IV* 40 MG IV SCH (08:18)
[2018-02-15] MEDS: Potassium & Sodium Phos 250MG* = 1 PACKET PO SCH ×2 (14:07→21:55)
[2018-02-15] MEDS: Acetaminophen TAB* 325 MG PO PRN (18:22)
[2018-02-15] MEDS ORDERED: Acetaminophen TAB* 325 MG PO ONE (20:00)
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
[2018-02-15] MEDS: Apixaban* 5 MG TAB PO SCH (21:54)
[2018-02-15] MEDS: Omeprazole CAP* 20 MG PO SCH (21:55)
[2018-02-16] MEDS: Diltiazem TAB* 60 MG PO SCH ×2 (05:34→11:17)
[2018-02-16] MEDS: Potassium & Sodium Phos 250MG* = 1 PACKET PO SCH (08:13)
[2018-02-16] MEDS: Apixaban* 5 MG TAB PO SCH (08:13)
[2018-02-16] MEDS: Omeprazole CAP* 20 MG PO SCH (08:13)
[2018-02-16 11:30] VITALS: BP 131/70
--- NOTE | 2018-02-19 23:23 | DS ---
CC: Dr. Jamey Goncalves; Dr. Davide Rodriguez; Dr. Barragan * DISCHARGE SUMMARY: DATE OF ADMISSION: 02/13/18 DATE OF DISCHARGE: 02/16/18 DISCHARGE DIAGNOSES: 1. Atrial fibrillation. 2. Wandering atrial pacemaker, probable. 3. History of erosive esophagitis. 4. Weight loss. 5. Mitral annular calcification. 6. Aortic sclerosis. 7. Iron deficiency anemia. 8. Type 2 diabetes mellitus. 9. History of hypertension. 10. Probable mild cognitive impairment. 11. Hypokalemia. 12. Hypomagnesemia. HISTORY: Suzette Ma is an 82-year-old woman admitted with new onset of atrial fibrillation. The patient had presented to the emergency room with abdominal pain, nausea, vomiting and was found to be in atrial fibrillation. Please see the dictated admission note for details of present illness, past medical history, family history, social and personal history, review of systems , and physical examination. LABORATORY DATA/IMAGING STUDIES: CBC on 02/13/18, WBC 18.6, H and H 11.8/36, MCV 84, PLT 472,000, white count came down to 7.5 on 02/15/18, H and H were 9.2/ 28, INR 1.13, PTT 33.4. Chemistries on 02/13/18, sodium 139, potassium 3.2, chloride 106, CO2 20, BUN and creatinine 17/1.04, glucose 246, calcium 8.5, magnesium 1.5. BNP was 167, rest of the comprehensive metabolic panel was within normal limits. TSH was normal at 2.35, lactic acid was 1.1. Chemistries on 02/15/18, sodium 141, potassium 3.5, chloride 116, BUN 11, creatinine 0.77, calcium 7.7, phosphorus 1.7, magnesium 1.9, CRP 1.73. Urinalysis, alfredo clear, specific gravity 1.010, ketones trace, blood 2+, esterase 2+, wbc's 2+, rbc's 2+, squamous epithelial present. Urine culture was negative. Imaging, chest x-ray on 02/13/18, no evidence for active cardiopulmonary disease. EKG on 02/13/18 showed atrial fibrillation, rate 96 to 138, LDH noted. EKG 02/14/18 possible sinus rhythm with atrial PVC's versus atrial fibrillation, LVH. EKG, 02/14/18 later in the day showed atrial fibrillation versus wandering atrial pacemaker, borderline low voltage extremity leads, consider LVH. EKG 02/15/18 showed sinus rhythm with PAC's versus wandering atrial pacemaker, possible LVH. Transthoracic echocardiogram 02/13/18 showed EF 55% to 60%, mitral annular calcification, aortic sclerosis without stenosis. Trace aortic regurgitation, trace to mild mitral regurgitation. HOSPITAL COURSE: The patient was placed on a diltiazem drip. She was on telemetry monitoring. Her potassium and her magnesium were repleted. She was given pantoprazole IV b.i.d. while she was in the hospital. She had no further nausea or vomiting. She began eating well. Her white count came down. She was a DNR code status. She felt better each day. The day prior to discharge, she was very insistent on going home, but agreed to stay. At first, she was thought to have a urinary tract infection, was on ceftriaxone, but this was stopped when the culture was negative. The diltiazem drip was stopped on the night of 02/14/18 - 02/15/18 and started on p.o. diltiazem. She had been on 10 mg per hour IV, switched to p.o. 60 mg every 6 hours. She was eating. She had no further vomiting. She did complain of a toothache and given Tylenol for that. She was switched to p.o. omeprazole from pantoprazole on 02/15/18. She was seen by Cardiology, Dr. Rodriguez. He also discussed with GI Dr. Barragan. He felt that she was at high risk for clots and so recommended anticoagulation as long as as she was on the PPI and Dr. Barragan agreed with this. She was placed on Eliquis 2.5 mg twice a day. She was switched to diltiazem once a day 240 mg extended release. This is to be substitute for her amlodipine, which she had been on previously. At the time of discharge, her diet is regular. Her activity is as tolerated. She is to be on the following medications: Tylenol 650 every 6 hours as needed for pain, Eliquis 2.5 mg twice daily, diltiazem 240 mg extended release once a day, omeprazole 20 mg twice a day. She was told to stop taking ibuprofen. She is being discharged. She will be following up with Dr. Goncalves in 4 to 7 days. [id number]/[facility] #: [id number] TOMASZ
== END 2018-02-16 12:40 | disposition home or self-care (01) | DRG 309 ==
LOC: ED 15:01 → OBSVTOIN 18:56 → MEDTELE 18:56
PROVIDERS: ADMIT Hospitalist; ATTEND Internal Medicine Geriatric Medicine
DX: I48.91 Unspecified atrial fibrillation (principal); Z68.1 Body mass index [BMI] 19.9 or less, adult; K22.10 Ulcer of esophagus without bleeding; I49.8 Other specified cardiac arrhythmias; R63.4 Abnormal weight loss; D50.9 Iron deficiency anemia, unspecified; E11.9 Type 2 diabetes mellitus without complications; I10 Essential (primary) hypertension; G31.84 Mild cognitive impairment of uncertain or unknown etiology; E87.6 Hypokalemia; E83.42 Hypomagnesemia; Z66 Do not resuscitate; E78.5 Hyperlipidemia, unspecified; R11.2 Nausea with vomiting, unspecified; Z96.642 Presence of left artificial hip joint; K08.89 Other specified disorders of teeth and supporting structures; D72.829 Elevated white blood cell count, unspecified; M81.0 Age-related osteoporosis without current pathological fracture; I08.3 Combined rheumatic disorders of mitral, aortic and tricuspid valves; Z90.710 Acquired absence of both cervix and uterus; Z98.49 Cataract extraction status, unspecified eye; Z87.891 Personal history of nicotine dependence; Z72.89 Other problems related to lifestyle
CPT/HCPCS: 36415; 71045; 80048; 80053; 81003; 81015; 83605; 83735; 83880; 84100; 84443; 84484; 85025; 85045; 85060; 85610; 85730; 86140; 87086; 93005; 93306; 96365; 99285; A9270-GY; J0696; J0780; J1644; J2405; J3475; J3480

== ENCOUNTER 2018-02-18 09:11 | Emergency (ER) | payer MEDICARE, OTHER ==
[2018-02-18] MEDS ORDERED: Famotidine TAB* 20 MG PO ONE (09:36)
[2018-02-18] MEDS ORDERED: Ondansetron INJ* 2 MG/ML VIAL IV ONE (09:36)
[2018-02-18] MEDS ORDERED: Morphine VIAL* 4 MG/ML VIAL (1 ml vial) IV ONE (09:36)
--- NOTE | 2018-02-18 09:41 | ED ---
Abdominal Pain/Female - HPI Summary HPI Summary: This patient is an 82 year old F BIBA to [facility] with a chief complaint of vomiting that began 3 days ago. The patient rates the pain 0/10 in severity. Symptoms not aggravated by eating. Symptoms alleviated by nothing. Patient reports RUQ abd pain. Patient denies fever, diarrhea, and hematemesis. Patient denies a history of small bowel obstruction. - History of Current Complaint Stated Complaint: ABD PAIN Time Seen by Provider: 02/18/18 09:26 Hx Obtained From: Patient ?: No Onset/Duration: Sudden Onset, Lasting Days, Still Present Timing: Constant Severity Initially: Mild Severity Currently: Mild Pain Intensity: 0 Pain Scale Used: 0-10 Numeric Location: Discrete At: RUQ Radiates: No Aggravating Factor(s): Nothing Alleviating Factor(s): Nothing Associated Signs and Symptoms: Positive: Other: - Negative hematemesis. Negative: Diarrhea Allergies/Adverse Reactions: Allergies Allergy/AdvReac Type Severity Reaction Status Date / Time No Known Allergies Allergy Verified 02/13/18 15:50 PMH/Surg Hx/FS Hx/Imm Hx Previously Healthy: No Endocrine/Hematology History: Reports: Hx Anemia Denies: Hx Diabetes Cardiovascular History: Reports: Hx Hypertension GI History: Denies: Hx Jaundice History: Denies: Hx Renal Disease Musculoskeletal History: Reports: Hx Osteoporosis Denies: Hx Rheumatoid Arthritis Sensory History: Reports: Hx Contacts or Glasses - Left at home Denies: Hx Hearing Aid Opthamlomology History: Reports: Hx Contacts or Glasses - Left at home - Surgical History Surgery Procedure, Year, and Place: LEFT HIP REPLACEMENT Infectious Disease History: No Infectious Disease History: Denies: Traveled Outside the [place] in Last 30 Days - Family History Known Family History: Negative: Hypertension, Diabetes - Social History Occupation: Retired Lives: With Family Alcohol Use: Daily Alcohol Amount: 2 beer/night Hx Substance Use: No Substance Use Type: Reports: None Hx Tobacco Use: Yes Smoking Status (MU): Former Smoker Have You Smoked in the Last Year: No Review of Systems Negative: Fever Positive: Abdominal Pain, Vomiting, Other - Negative hematemesis. Negative: Diarrhea All Other Systems Reviewed And Are Negative: Yes Physical Exam - Summary Physical Exam Summary: Appearance: Well appearing, no pain distress, thin Skin: warm, dry, reflects adequate perfusion Head/face: normal Eyes: EOMI, PA ENT: mucous membranes moist Neck: supple, non-tender Respiratory: CTA, breath sounds present Cardiovascular: RRR, pulses symmetrical Abdomen: Positive [place] sign. No pulsatile abd mass. Very tender in RUQ. No rebound or guarding Bowel Sounds: present Musculoskeletal: normal, strength/ROM intact Neuro: normal, sensory motor intact, A&Ox3 Triage Information Reviewed: Yes Vital Signs On Initial Exam: Initial Vitals Temp Pulse Resp BP Pulse Ox 98.4 F 99 16 124/86 99 02/18/18 09:20 02/18/18 09:20 02/18/18 09:20 02/18/18 09:20 02/18/18 09:20 Vital Signs Reviewed: Yes Diagnostics - Vital Signs Vital Signs Temp Pulse Resp BP Pulse Ox 02/18/18 09:20 98.4 F 99 16 124/86 99 - Laboratory Result Diagrams: 02/18/18 09:44 02/18/18 09:44 Lab Statement: Any lab studies that have been ordered have been reviewed, and results considered in the medical decision making process. - EKG 0948 Cardiac Rate: NL EKG Rhythm: Sinus Rhythm - [address] Segment: Normal Ectopy: None Summary of EKG Findings: An EKG taken at 0948 reveals normal sinus rhythm at 80 BPM with normal axis, normal interval, normal ST, poor R wave progression, and EAC - Additional Comments Diagnostic Additional Comments: Gallbladder US reveals, per radiologist, 1. THE ECHOGENIC SHADOWING AREA AT THE FUNDUS OF THE GALLBLADDER APPEARS TO CORRESPOND TO MURAL CALCIFICATION VISUALIZED ON THE 2017 CT EXAMINATION OPPOSED TO BEING A LARGE GALLSTONE. CALCIFICATION OF THE GALLBLADDER WALL CAN BE ASSOCIATED WITH MALIGNANCY IN THE CORRECT CLINICAL SETTING. 2. THERE IS NO SONOGRAPHIC EVIDENCE OF BILIARY OBSTRUCTION OR ACUTE INFLAMMATORY CHANGE INVOLVING THE GALLBLADDER. ED physician has reviewed this radiology report. Re-Evaluation - Re-Evaluation First Eval Re-Evaluation Time: 11:14 Change: Improved Comment: Patient reports she has no pain whatsoever, and is requesting to return home Abdominal Pain Fem Course/Dx - Course Course Of Treatment: Patient with epigastric and right upper quadrant tenderness and a history of frequent ibuprofen use recently. This was recently discontinued. Gallbladder ultrasound shows no inflammatory changes but a calcification that is unchanged from previous. The radiologist has some concern for association with malignancy which will be followed up outpatient by her primary care physician. Her pain was totally relieved here and her abdomen was soft and nontender. We will continue GI treatment and close outpatient follow-up. - Diagnoses Differential Diagnosis: Positive: Bowel Obstruction, Gall Bladder Disease, Irritable Bowel Syndrome, CO, Pancreatitis, Other - Gastritis, peptic ulcer Provider Diagnoses: Upper abdominal pain, Gastritis Discharge - Sign-Out/Discharge Documenting (check all that apply): Patient Departure - Discharge home - Discharge Plan Condition: Improved Disposition: HOME Prescriptions: Famotidine TAB* [Pepcid 20 MG TAB*] 20 mg PO BID #40 tab Ondansetron TAB* [Zofran 4 MG Tab*] 4 mg PO Q6H PRN #15 tab PRN Reason: Nausea Patient Education Materials: Gastritis (ED), Acute Abdominal Pain (ED) Referrals: Jamey Goncalves MD [Primary Care Provider] - Additional Instructions: You have a calcification in your gallbladder that is been stable for some time. This will need additional evaluation by your doctor. Call Tuesday to schedule appointment. Return with increased pain, vomiting, fever, new symptoms, worse or other concerns as discussed. - Billing Disposition and Condition Condition: IMPROVED Disposition: Home - Attestation Statements Document Initiated by Scribe: Yes Documenting Scribe: Gosia Deras Provider For Whom Scribe is Documenting (Include Credential): Dr. Joe Hoff MD Scribe Attestation: Gosia Joyce scrlatishaed for Dr. Joe Hoff MD on 02/18/18 at 1220. Scribe Documentation Reviewed: Yes Provider Attestation: The documentation as recorded by the Gosia tovar accurately reflects the service I personally performed and the decisions made by me, Dr. Joe Hoff MD
[2018-02-18 10:07] LABS: INR 0.92 (0.77-1.02)
[2018-02-18 10:08] LABS: Hematocrit 35 % (35-47); Hemoglobin 11.2 g/dl (12.0-16.0); Mean Corpuscular HGB Conc 33 g/dl (31-36); Mean Corpuscular Hemoglobin 28 pg (27-31); Mean Corpuscular Volume 86 fL (80-97); Mean Platelet Volume 6.8 fL (7.4-10.4); Platelet Count 457 10^3/ul (150-450); Red Blood Count 4.04 10^6/ul (4.00-5.40); Red Cell Distribution Width 24 % (10.5-15); White Blood Count 9.8 10^3/ul (3.5-10.8)
[2018-02-18 10:20] LABS: EGFR Non-African American 61.2 (>60)
[2018-02-18 10:36] LABS: ABS Basophils 0 10^3/ul (0-0.2); ABS Eosinophils 0.1 10^3/ul (0-0.6); ABS Lymphocytes 1.1 10^3/ul (1.0-4.8); ABS Monocytes 0.5 10^3/ul (0-0.8); ABS Neutrophils 8.2 10^3/ul (1.5-7.7); ABS Nucleated RBC 0 10^3/ul; Nucleated Red Blood Cells % 0
--- NOTE | 2018-02-18 10:57 | RAD ---
HISTORY: Right upper quadrant pain. COMPARISONS: Similar examination dated December 25, [address] of the abdomen and pelvis December 25, 2017 TECHNIQUE: Multiple transverse and longitudinal ultrasound images were obtained of the right upper quadrant. FINDINGS: LIVER: The liver is normal in dimensions and echogenicity. Normal hepatic and portal venous blood flow is duplicated with color flow imaging. There is no gross intrahepatic biliary duct dilatation. GALLBLADDER AND EXTRAHEPATIC BILIARY DUCT: Along the superficial medial margin of the fundus of the gallbladder there is a convex shaped echogenicity exhibiting shadowing consistent with calcification. Elsewhere the gallbladder appears to be free of gallstones. There is no pericholecystic fluid or gallbladder wall thickening. The common bile duct measures a maximum diameter of 4 mm. PANCREAS: The portions of the pancreas not obscured by bowel gas are normal in appearance. RIGHT KIDNEY: The right kidney is normal in size, morphology and echogenicity. AORTA AND IVC: The visualized portions are normal in appearance and not pathologically dilated. IMPRESSION: 1. THE ECHOGENIC SHADOWING AREA AT THE FUNDUS OF THE GALLBLADDER APPEARS TO CORRESPOND TO MURAL CALCIFICATION VISUALIZED ON THE 2017 CT EXAMINATION OPPOSED TO BEING A LARGE GALLSTONE. CALCIFICATION OF THE GALLBLADDER WALL CAN BE ASSOCIATED WITH MALIGNANCY IN THE CORRECT CLINICAL SETTING. 2. THERE IS NO SONOGRAPHIC EVIDENCE OF BILIARY OBSTRUCTION OR ACUTE INFLAMMATORY CHANGE INVOLVING THE GALLBLADDER.
[2018-02-18 11:05] LABS: Urine Appearance Clear; Urine Blood Negative (Negative); Urine Color Yellow; Urine Ketones Negative (Negative); Urine Protein Negative (Negative); Urine Specific Gravity 1.024 (1.010-1.030); Urine Urobilinogen Negative (Negative)
[2018-02-18] MEDS ORDERED: Pantoprazole IV* 40 MG IV ONE (11:27)
[2018-02-18 11:34] VITALS: BP 135/78
== END 2018-02-18 11:32 | disposition home or self-care (01) ==
LOC: ED 09:11
DX: R10.84 Generalized abdominal pain (principal); K29.70 Gastritis, unspecified, without bleeding; R11.10 Vomiting, unspecified; Z87.891 Personal history of nicotine dependence; I10 Essential (primary) hypertension
CPT/HCPCS: 36415; 76705; 80053; 81003; 83605; 83690; 84484; 85025; 85610; 86140; 93005; 96374; 96375; 99283; A9270-GY; J2270; J2405

== ENCOUNTER 2018-02-21 12:03 | Inpatient (IN) | payer MEDICARE, OTHER ==
[2018-02-21] MEDS ORDERED: Ondansetron INJ* 2 MG/ML VIAL IV ONE (12:08)
[2018-02-21] MEDS ORDERED: NS 0.9% 1000 ML* 1,000 ML IV ONE (12:08)
--- NOTE | 2018-02-21 12:09 | ED ---
GI/ HPI - HPI Summary HPI Summary: The pt is an 82 y/o female with a hx of ulcer brought in by ambulance to [facility] c /o vomiting for weeks worsened today morning. She notes abd pain,nausea and diarrhea. The pain rated 8/10 in severity is described as aching. As per EMS, her blood glucose was 352 mg/dL en route. The pt denies a hx of DM. She was recently [place] [facility] [place] for similar sx. - History of Current Complaint Stated Complaint: ABD PAIN/VOMITING Hx Obtained From: Patient Onset/Duration: Started Weeks Ago, Still Present, Worse Since - Today morning Timing: Constant Severity: Severe Current Severity: Severe Pain Intensity: 8 Location of Pain: Diffuse Pain Characteristics: Aching Associated Signs and Symptoms: Positive: Nausea, Vomiting, Diarrhea, Abdominal Pain - Additional Pertinent History Primary Care Physician: [id number] - Allergy/Home Medications Allergies/Adverse Reactions: Allergies Allergy/AdvReac Type Severity Reaction Status Date / Time No Known Allergies Allergy Verified 02/13/18 15:50 PMH/Surg Hx/FS Hx/Imm Hx Previously Healthy: No Endocrine/Hematology History: Reports: Hx Anemia Denies: Hx Diabetes Cardiovascular History: Reports: Hx Hypertension GI History: Reports: Hx Ulcer Denies: Hx Jaundice History: Denies: Hx Renal Disease Musculoskeletal History: Reports: Hx Osteoporosis Denies: Hx Rheumatoid Arthritis Sensory History: Reports: Hx Contacts or Glasses - Left at home Denies: Hx Hearing Aid Opthamlomology History: Reports: Hx Contacts or Glasses - Left at home - Cancer History Cancer Type, Location and Year: None reported - Surgical History Surgery Procedure, Year, and Place: LEFT HIP REPLACEMENT - Family History Known Family History: Negative: Hypertension, Diabetes - Social History Occupation: Retired Lives: Alone Alcohol Use: Daily Alcohol Amount: 2 beer/night Hx Substance Use: No Substance Use Type: Reports: None Hx Tobacco Use: Yes Smoking Status (MU): Former Smoker Have You Smoked in the Last Year: No Review of Systems Negative: Fever Positive: Abdominal Pain, Vomiting, Diarrhea, Nausea All Other Systems Reviewed And Are Negative: Yes Physical Exam - Summary Physical Exam Summary: Appearance: Slender and cachetic Skin: Warm, dry, no obvious rash Eyes: sclera anicteric, no conjunctival pallor ENT: mucous membranes moist, pharynx appears normal Neck: Supple, nontender Respiratory: Clear to auscultation, no signs of respiratory distress Cardiovascular: Normal S1, S2. No murmurs. Normal distal pulses in tibial and radial bilaterally. Abdomen: Soft, nontender, normal active bowel sounds present Musculoskeletal: Normal, Strength/ROM Intact Neurological: A&Ox3, awake and alert, mentation is normal, speech is fluent and appropriate Psychiatric: affect is normal, does not appear anxious or depressed Triage Information Reviewed: Yes Vital Signs On Initial Exam: Initial Vital Signs Temp 98.4 F 02/21/18 12:15 Pulse 88 02/21/18 12:15 Resp 18 02/21/18 12:15 BP 149/68 02/21/18 12:15 Pulse Ox 99 02/21/18 12:15 Vital Signs Reviewed: Yes Diagnostics - Laboratory Result Diagrams: 02/22/18 05:39 02/22/18 05:38 Lab Statement: Any lab studies that have been ordered have been reviewed, and results considered in the medical decision making process. - CT Abd/Pel CT CT Interpretation Completed By: Radiologist - IMPRESSION: 1. NO EVIDENCE FOR ACUTE FINDING OR CAUSE FOR THE PATIENT'S ABDOMINAL PAIN IS SEEN. 2. DISTENDED GALLBLADDER. RECOMMEND A RIGHT UPPER QUADRANT ULTRASOUND IF THE PATIENT HAS SYMPTOMS REFERRABLE TO THIS REGION. 3. DILATED RECTOSIGMOID COLON WITH LARGE AMOUNT RETAINED STOOL. The ED physician reviewed this radiology report. - EKG 12:23 Cardiac Rate: Tachycardia - 108 bpm Summary of EKG Findings: Anteroseptal infarct. MKmultiple premature complexes ventricular and supraventricular. GIGU Course/Dx - Course Course Of Treatment: An 82 year-old F presents to the ED with a CC of vomiting for weeks worsened today morning. She notes abd pain, nausea and diarrhea. As per EMS, her blood glucose was 352 mg/dL en route. A physical exam revealed a slender and cachectic appearance. An EKG reveals sinus tachycardia, anteroseptal infarct, and multiple premature complexes ventricular and supraventricular. An abd/pel CT reveals a distended gall bladder and dilated recto sigmoid colon with large amount of retained stool. In the ED course, pt was given N.s 0.9% 1000ml IV and Ondansetron 4mg IV which improved the symptoms. Allergies noted. - Diagnoses Differential Diagnoses - Female: Bowel Obstruction, Cancer, Cholelithiasis, Cholecystitis, Constipation, Dehydration, Diabetes, Enterocolitis, Fecal Impaction Provider Diagnoses: History of nausea and vomiting, Vomiting, Malnutrition, Dementia - Physician Notifications Discussed Care Of Patient With: Sydnee Khalil - Hospitalist Time Discussed With Above Provider: 17:27 Instructed by Provider To: Admit As Inpatient Discharge - Sign-Out/Discharge Documenting (check all that apply): Patient Departure - Admit - Discharge Plan Condition: Stable Disposition: ADMITTED TO [facility] - Billing Disposition and Condition Condition: STABLE Disposition: Admitted to [facility] - Attestation Statements Document Initiated by Scribe: Yes Documenting Scribe: Elizabeth Purcell Provider For Whom Nicoletteibe is Documenting (Include Credential): Dr. Claude Dobbins MD Scribe Attestation: Elizabeth Joyce scribed for Dr. Claude Dobbins MD on 02/22/18 at [facility]. Scribe Documentation Reviewed: Yes Provider Attestation: The documentation as recorded by the nicoletteibeElizabeth accurately reflects the service I personally performed and the decisions made by , Dr. Claude Dobbins MD
[2018-02-21 13:08] LABS: Hematocrit 34 % (35-47); Hemoglobin 11.2 g/dl (12.0-16.0); Mean Corpuscular HGB Conc 33 g/dl (31-36); Mean Corpuscular Hemoglobin 28 pg (27-31); Mean Corpuscular Volume 85 fL (80-97); Mean Platelet Volume 6.6 fL (7.4-10.4); Platelet Count 537 10^3/ul (150-450); Red Blood Count 4.03 10^6/ul (4.00-5.40); Red Cell Distribution Width 23 % (10.5-15); White Blood Count 17.1 10^3/ul (3.5-10.8)
[2018-02-21 13:10] LABS: EGFR Non-African American 58.9 (>60)
[2018-02-21 13:43] LABS: ABS Basophils 0 10^3/ul (0-0.2); ABS Eosinophils 0 10^3/ul (0-0.6); ABS Lymphocytes 0.4 10^3/ul (1.0-4.8); ABS Monocytes 0.2 10^3/ul (0-0.8); ABS Neutrophils 16.5 10^3/ul (1.5-7.7); ABS Nucleated RBC 0 10^3/ul; Eosinophil % 0 % (0-6); Lymphocyte % 2.1 % (25-47); Nucleated Red Blood Cells % 0
[2018-02-21] MEDS ORDERED: PROCHLORPERAZINE INJ 5 MG/ML 2 ML VIAL IV ONE (14:45)
[2018-02-21] MEDS ORDERED: Iodixanol* (CONTRAST) 320 MG/ML 100 ML SDV IV ONE (15:11)
[2018-02-21 17:14] LABS: Urine Appearance Clear; Urine Blood Negative (Negative); Urine Color Yellow; Urine Ketones Trace (Negative); Urine Protein Negative (Negative); Urine Specific Gravity 1.029 (1.010-1.030); Urine Urobilinogen Negative (Negative)
[2018-02-21] MEDS ORDERED: Potassium Chloride LIQUID* 20 MEQ PACKET PO ONE (18:06)
[2018-02-21] MEDS ORDERED: Diltiazem IV* 5 MG/ML 5 ML VIAL (for loading dose/IV Push) (25 MG) IV SLOW PU ONE (18:06)
[2018-02-21] MEDS ORDERED: Dextrose 50% Syringe 50 ML* 25 GM/50 ML SYRINGE IV PUSH PRN (18:09)
[2018-02-21] MEDS ORDERED: NS 0.9% 1000 ML* 1,000 ML IV SCH (18:15)
[2018-02-21] MEDS ORDERED: Diltiazem TAB* 60 MG PO ONE (18:30)
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
[2018-02-21] MEDS: KCL 10 MEQ/50 ML IVPREMIX* 10 MEQ/50 ML BAG IV SCH ×2 (19:57→23:11)
[2018-02-21] MEDS: Senna TAB PO SCH (20:04)
[2018-02-21] MEDS: Omeprazole CAP* 20 MG PO SCH (20:04)
[2018-02-21] MEDS: Docusate CAP* 100 MG PO SCH (20:04)
[2018-02-21] MEDS: Apixaban* 2.5 MG TAB PO SCH (20:04)
[2018-02-21] MEDS: Ondansetron INJ* 2 MG/ML VIAL IV PRN (20:57)
[2018-02-21] MEDS ORDERED: Zosyn per Pharmacy* NOTE FOLLOW UP SCH (22:00)
[2018-02-21] MEDS ORDERED: Piperacillin/Tazobac ADVAN(*) 3.375 GM in NS 0.9% 100 ML* 100 ML IVPB ONE (22:00)
[2018-02-21] MEDS: NS 0.9% 1000 ML* 1,000 ML IV SCH (22:45)
[2018-02-21 23:02] LABS: Hematocrit 30 % (35-47); Mean Corpuscular HGB Conc 33 g/dl (31-36); Mean Corpuscular Hemoglobin 28 pg (27-31); Mean Corpuscular Volume 85 fL (80-97); Mean Platelet Volume 6.3 fL (7.4-10.4); Platelet Count 461 10^3/ul (150-450); Red Blood Count 3.56 10^6/ul (4.00-5.40); White Blood Count 16.2 10^3/ul (3.5-10.8)
[2018-02-21 23:46] LABS: ABS Basophils 0 10^3/ul (0-0.2); ABS Eosinophils 0 10^3/ul (0-0.6); ABS Lymphocytes 0.9 10^3/ul (1.0-4.8); ABS Monocytes 0.7 10^3/ul (0-0.8); ABS Neutrophils 14.5 10^3/ul (1.5-7.7); ABS Nucleated RBC 0 10^3/ul; Eosinophil % 0 % (0-6); Lymphocyte % 5.6 % (25-47); Nucleated Red Blood Cells % 0; Red Cell Distribution Width 24 % (10.5-15)
[2018-02-22] MEDS ORDERED: KCL 10 MEQ/50 ML IVPREMIX* 10 MEQ/50 ML BAG ONE (02:48)
[2018-02-22] MEDS: ZOSYN 3.375 GM Q8H per EXTENDED INFUSION IVPB SCH ×6 (02:52→19:55)
[2018-02-22] MEDS: KCL 10 MEQ/50 ML IVPREMIX* 10 MEQ/50 ML BAG IV SCH (06:08)
[2018-02-22 06:15] LABS: INR 1.13 (0.77-1.02)
[2018-02-22 06:54] LABS: EGFR Non-African American 62.9 (>60)
[2018-02-22] MEDS: NS 0.9% 1000 ML* 1,000 ML IV SCH (08:35)
--- NOTE | 2018-02-22 08:37 | PN ---
Subjective - Subjective Reason for Note: Progress Note History: I have reviewed Suzette Francesca's presentation with the patient herself, Lucian Walker, WILNER's admitting history and physical. I have also reviewed her recent admission/discharge with Dr. Alyssa Huggins and her discharge summary/EHR. The patient doesn't recall her last admission - 02/13 - 02/16 for atrial fibrillation/esophagitis. She states she had some nausea and vomiting that stopped 1 week ago, and that she came in as she was too weak to cope at home. She denies any specific symptoms of infection or focal weakness. According to her H and P she was sent to the ED by her son, though there was no direct confirmation of that as her son was unreachable. I tried calling him now. The main findings are a raised WBC and Neut%, atrial fibrillation. The patient denies any pain, fever, sweats or chills. 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 Type 2 diabetes mellitus (Chronic) Weight loss (Chronic) Current Medications: Current Medications Acetaminophen (Tylenol Tab*) 650 mg PO Q4H PRN PRN Reason: FEVER/PAIN Apixaban (Eliquis) 2.5 mg PO BID [facility] Last Admin: 02/21/18 20:04 Dose: 2.5 mg Dextrose (D50w Syringe 50 Ml*) 12.5 gm IV PUSH .FOR FS < 60 - SS PRN PRN Reason: FS < 60 Diltiazem HCl (Cardizem Cd Cap*) 240 mg PO DAILY [facility] Docusate Sodium (Colace Cap*) 100 mg PO BID [facility] Last Admin: 02/21/18 20:04 Dose: 100 mg Folic Acid (Folvite Tab*) 1 mg PO DAILY [facility] Sodium Chloride (Ns 0.9% 1000 Ml*) 1,000 mls @ 100 mls/hr IV Q10H [facility] Stop: 02/22/18 18:18 Last Admin: 02/21/18 22:45 Dose: 100 mls/hr Piperacillin Sod/Tazobactam (Sod 3.375 gm/ Sodium Chloride) 100 mls @ 25 mls/ hr IVPB Q8H [facility] Last Admin: 02/22/18 02:52 Dose: 25 mls/hr Insulin Human Lispro (Humalog*) 0 units SUBCUT [facility]; Protocol Omeprazole (Prilosec Cap*) 20 mg PO BID [facility] Last Admin: 02/21/18 20:04 Dose: 20 mg Ondansetron HCl (Zofran Inj*) 4 mg IV Q6H PRN PRN Reason: NAUSEA Last Admin: 02/21/18 20:57 Dose: 4 mg Pharmacy Consult (Zosyn Per Pharmacy*) 1 note FOLLOW UP .ZOSYN PER PHARMACY [facility] Senna (Senokot Tab*) 2 tab PO BEDTIME [facility] Last Admin: 02/21/18 20:04 Dose: 2 tab - Review of Systems General Comments: she denies headache, neck stiffness. Constitutional Symptoms: No: Fever, Night Sweats Dermatology: Rash: No Pulmonary: Negative: Cough, Sputum, Hemoptysis, Respiratory Distress, Shortness of Breath Cardiology: Negative: Chest Pain, Shortness of Breath, Palpitations Gastroenterology: Positive: Abdominal Pain - she states she has none at present , but had this recently, Constipation Negative: Nausea, Vomiting, Difficulty Swallowing Genital - Urinary: Negative: Dysuria, Hematuria Home Medications: Home Medications Medication Instructions Recorded Confirmed Type Cyanocobalamin INJ * [Vitamin B12 1,000 mcg INJ WEEKLY 12/25/17 02/21/18 History INJ *] Acetaminophen TAB* [Tylenol TAB*] 650 mg PO Q6H PRN tab 02/16/18 02/21/18 Rx Apixaban* [Eliquis*] 2.5 mg PO BID #60 tab 02/16/18 02/21/18 Rx Omeprazole CAP* [Prilosec CAP* 20 20 mg PO BID cap. 02/16/18 02/21/18 Rx MG] dilTIAZem HCl [Diltiazem 24Hr ER] 240 mg PO DAILY #30 tab.er.24h 11/01/18 11/06/ 18 Rx Famotidine TAB* [Pepcid 20 MG TAB*] 20 mg PO BID #40 tab 02/18/18 02/21/18 Rx Ondansetron TAB* [Zofran 4 MG Tab*] 4 mg PO Q6H PRN #15 tab 02/18/18 02/21/18 Rx Allergies: Allergies Allergy/AdvReac Type Severity Reaction Status Date / Time No Known Allergies Allergy Verified 02/13/18 15:50 Objective - Vital Signs Vital Signs: Vital Signs 02/21/18 02/21/18 02/21/18 12:14 12:15 12:16 Temperature 98.4 F Pulse Rate 95 88 110 Respiratory 18 Rate Blood Pressure 149/68 149/68 (mmHg) O2 Sat by Pulse 100 99 100 Oximetry 02/21/18 02/21/18 02/21/18 12:36 12:44 13:00 Temperature Pulse Rate 97 93 87 Respiratory 27 22 28 Rate Blood Pressure 136/76 147/76 (mmHg) O2 Sat by Pulse 98 99 100 Oximetry 02/21/18 02/21/18 02/21/18 13:14 13:44 14:00 Temperature Pulse Rate 104 94 94 Respiratory 27 16 27 Rate Blood Pressure 159/77 153/71 (mmHg) O2 Sat by Pulse 99 100 99 Oximetry 02/21/18 02/21/18 02/21/18 14:14 14:44 15:00 Temperature Pulse Rate 99 98 109 Respiratory 24 27 22 Rate Blood Pressure 145/78 152/82 (mmHg) O2 Sat by Pulse 100 98 99 Oximetry 02/21/18 02/21/18 02/21/18 15:14 15:44 16:00 Temperature Pulse Rate 117 113 109 Respiratory 20 18 21 Rate Blood Pressure 154/84 145/77 (mmHg) O2 Sat by Pulse 98 97 100 Oximetry 02/21/18 02/21/18 02/21/18 16:44 17:00 17:15 Temperature Pulse Rate 108 108 105 Respiratory 38 18 20 Rate Blood Pressure 171/86 167/84 (mmHg) O2 Sat by Pulse 99 98 99 Oximetry 02/21/18 02/21/18 02/21/18 17:44 18:00 18:12 Temperature Pulse Rate 104 99 108 Respiratory 15 19 17 Rate Blood Pressure 145/88 142/87 (mmHg) O2 Sat by Pulse 100 100 100 Oximetry 02/21/18 02/21/18 02/21/18 18:15 18:25 18:26 Temperature Pulse Rate 113 111 115 Respiratory 25 26 17 Rate Blood Pressure 164/76 168/90 144/70 (mmHg) O2 Sat by Pulse 100 100 100 Oximetry 02/21/18 02/21/18 02/21/18 18:27 18:43 18:44 Temperature Pulse Rate 97 104 101 Respiratory 24 26 18 Rate Blood Pressure 128/60 138/62 138/60 (mmHg) O2 Sat by Pulse 100 96 100 Oximetry 02/21/18 02/21/18 02/21/18 19:00 19:11 19:25 Temperature 99.4 F 99.3 F Pulse Rate 97 102 106 Respiratory 19 18 16 Rate Blood Pressure 142/87 152/61 (mmHg) O2 Sat by Pulse 99 100 100 Oximetry 02/22/18 02/22/18 02/22/18 00:32 03:49 05:53 Temperature 99.3 F 99.3 F Pulse Rate 89 96 Respiratory 16 14 Rate Blood Pressure 137/64 134/70 (mmHg) O2 Sat by Pulse 99 100 100 Oximetry - Intake and Output Intake and Output: Intake & Output 02/19/18 02/20/18 02/21/18 02/22/18 11:59 11:59 11:59 11:59 Intake Total 1000 Output Total 200 Balance 800 Weight 93 lb 12.8 oz Intake: IV Fluids 1000 Oral 0 Output: Urine 200 Other: # Bowel Movements 1 Estimated Stool Amount Small ADLs: Meal Record Start: 02/21/18 18: 52 Freq: DAILY@0900,1400,1800 Status: Active Protocol: Created 02/21/18 18:52 System (Rec: 02/21/18 18:52 System [id number]) Intake and Output Start: 02/21/18 12: 12 Freq: Status: Active Protocol: Created 02/21/18 12:12 System (Rec: 02/21/18 12:12 System [id number]) Intake and Output Start: 02/21/18 18: 52 Freq: DAILY@0600,1400,2200 Status: Active Protocol: Created 02/21/18 18:52 System (Rec: 02/21/18 18:52 System [id number]) Document 02/21/18 21:21 [id number] (Rec: 02/21/18 21:22 [id number]) Document 02/22/18 06:00 [id number] (Rec: 02/22/18 06:51 [id number]) - Physical Exam General Physical Exam Comment: She is warm and well perfused. She is conversational, recognises me. She is thin. General: No Cyanosis, Yes Anemia, No Jaundice, No Clubbing Skin: Normal: Rash Lungs and Chest: Yes: Chest Expansion Full, Chest Expansion Symetrica, Percussion Note Resonant, Vessicular Breath Sounds. No: Crackles, Wheezes, Respiratory Distress, Use of Accessory Muscles Heart Rate and Rhythm: Regular JVP: Not Elevated Additional Cardiovascular: Yes: Normal Heart Sounds. No: Heart Murmur, Pedal Edema Abdominal Exam: Yes: Soft, Bowel Sounds Present. No: Distention, Abdominal Mass , Hepatomegaly, Abdominal Tenderness - Extremities Cranial Nerves II-XII Intact: Yes Limbs: Normal Power, Normal Tone - Neuro Orientation: Person, Place Speech: Normal Results - Results Lab Results: Laboratory Results - last 24 hr 02/21/18 02/21/18 02/21/18 12:35 12:35 16:41 WBC 17.1 H RBC 4.03 Hgb 11.2 L Hct 34 L MCV 85 MCH 28 MCHC 33 RDW 23 H Plt Count 537 H D MPV 6.6 L Neut % (Auto) 96.3 H Lymph % (Auto) 2.1 L [place] % (Auto) 1.5 Eos % (Auto) 0 Baso % (Auto) 0.1 Absolute Neuts (auto) 16.5 H Absolute Lymphs (auto) 0.4 L Absolute Monos (auto) 0.2 Absolute Eos (auto) 0 Absolute Basos (auto) 0 Absolute Nucleated RBC 0 Nucleated RBC % 0 Hypochromasia Anisocytosis Target Cells Elliptocytes Acanthocytes (Spur) ESR INR (Anticoag Therapy) Sodium 138 Potassium 3.2 L Chloride 103 Carbon Dioxide 21 L Anion Gap 14 H BUN 16 Creatinine 0.91 Est GFR ( Amer) 71.3 Est GFR (Non-Af Amer) 58.9 BUN/Creatinine Ratio 17.6 Glucose 273 H Lactic Acid Calcium 8.6 Magnesium 2.0 Total Bilirubin 0.20 AST 15 ALT 13 Alkaline Phosphatase 52 C-Reactive Protein Total Protein 6.9 Albumin 3.8 Globulin 3.1 Albumin/Globulin Ratio 1.2 Lipase 68 Vitamin B12 537 Folate 8.45 Procalcitonin TSH 4.42 Urine Color Yellow Urine Appearance Clear Urine pH 5.0 Ur Specific [place] 1.029 Urine Protein Negative Urine Ketones Trace A Urine Blood Negative Urine Nitrate Negative Urine Bilirubin Negative Urine Urobilinogen Negative Ur Leukocyte Esterase Negative Urine Glucose Negative Serum Alcohol < 10 02/21/18 02/21/18 02/21/18 19:38 22:21 22:21 WBC 16.2 H RBC 3.56 L Hgb 10.0 L Hct 30 L MCV 85 MCH 28 MCHC 33 RDW 24 H Plt Count 461 H D MPV 6.3 L Neut % (Auto) 89.5 H Lymph % (Auto) 5.6 L [place] % (Auto) 4.6 Eos % (Auto) 0 Baso % (Auto) 0.3 Absolute Neuts (auto) 14.5 H Absolute Lymphs (auto) 0.9 L Absolute Monos (auto) 0.7 Absolute Eos (auto) 0 Absolute Basos (auto) 0 Absolute Nucleated RBC 0 Nucleated RBC % 0 Hypochromasia 2+ Anisocytosis 3+ Target Cells 1+ Elliptocytes 1+ Acanthocytes (Spur) 1+ ESR 23 INR (Anticoag Therapy) Sodium Potassium Chloride Carbon Dioxide Anion Gap BUN Creatinine Est GFR ( Amer) Est GFR (Non-Af Amer) BUN/Creatinine Ratio Glucose Lactic Acid 1.1 0.6 Calcium Magnesium Total Bilirubin AST ALT Alkaline Phosphatase C-Reactive Protein Total Protein Albumin Globulin Albumin/Globulin Ratio Lipase Vitamin B12 Folate Procalcitonin TSH Urine Color Urine Appearance Urine pH Ur Specific [place] Urine Protein Urine Ketones Urine Blood Urine Nitrate Urine Bilirubin Urine Urobilinogen Ur Leukocyte Esterase Urine Glucose Serum Alcohol 02/21/18 02/21/18 02/22/18 22:21 22:21 05:38 WBC RBC Hgb Hct MCV MCH MCHC RDW Plt Count MPV Neut % (Auto) Lymph % (Auto) [place] % (Auto) Eos % (Auto) Baso % (Auto) Absolute Neuts (auto) Absolute Lymphs (auto) Absolute Monos (auto) Absolute Eos (auto) Absolute Basos (auto) Absolute Nucleated RBC Nucleated RBC % Hypochromasia Anisocytosis Target Cells Elliptocytes Acanthocytes (Spur) ESR INR (Anticoag Therapy) 1.13 H Sodium Potassium Chloride Carbon Dioxide Anion Gap BUN Creatinine Est GFR ( Amer) Est GFR (Non-Af Amer) BUN/Creatinine Ratio Glucose Lactic Acid Calcium Magnesium Total Bilirubin AST ALT Alkaline Phosphatase C-Reactive Protein 9.57 H Total Protein Albumin Globulin Albumin/Globulin Ratio Lipase Vitamin B12 Folate Procalcitonin 0.1 TSH Urine Color Urine Appearance Urine pH Ur Specific [place] Urine Protein Urine Ketones Urine Blood Urine Nitrate Urine Bilirubin Urine Urobilinogen Ur Leukocyte Esterase Urine Glucose Serum Alcohol 02/22/18 05:38 WBC RBC Hgb Hct MCV MCH MCHC RDW Plt Count MPV Neut % (Auto) Lymph % (Auto) [place] % (Auto) Eos % (Auto) Baso % (Auto) Absolute Neuts (auto) Absolute Lymphs (auto) Absolute Monos (auto) Absolute Eos (auto) Absolute Basos (auto) Absolute Nucleated RBC Nucleated RBC % Hypochromasia Anisocytosis Target Cells Elliptocytes Acanthocytes (Spur) ESR INR (Anticoag Therapy) Sodium 140 Potassium 3.2 L Chloride 109 Carbon Dioxide 22 Anion Gap 9 BUN 13 Creatinine 0.86 Est GFR ( Amer) 76.1 Est GFR (Non-Af Amer) 62.9 BUN/Creatinine Ratio 15.1 Glucose 111 H Lactic Acid Calcium 8.1 L Magnesium Total Bilirubin AST ALT Alkaline Phosphatase C-Reactive Protein Total Protein Albumin Globulin Albumin/Globulin Ratio Lipase Vitamin B12 Folate Procalcitonin TSH Urine Color Urine Appearance Urine pH Ur Specific [place] Urine Protein Urine Ketones Urine Blood Urine Nitrate Urine Bilirubin Urine Urobilinogen Ur Leukocyte Esterase Urine Glucose Serum Alcohol Radiology Results: Patient Name: SUZETTE SHEEHAN Medical Record#: [id number] Ordering Physician: Claude Dobbins MD Acct.#: [id number] : 1935 Age: 82 Sex: F Location: EMERGENCY DEPARTMENT Exam Date: 02/21/18 1356 ADM Status: REG ER Order Information: CT ABD/PEL W Accession Number: [id number] CPT: 15522 INDICATION: Vomiting and abdominal pain, leukocytosis. COMPARISON: Comparison is made with prior CTs of the abdomen and pelvis from November 05, 2017 and December 25, 2017. TECHNIQUE: A CT scan of the abdomen and pelvis was performed with intravenous and with oral contrast following intravenous injection of 65 ml of Visipaque 320 nonionic contrast. Contiguous axial sections were obtained from the lung bases through the symphysis pubis. Images were reconstructed in the coronal and sagittal planes. FINDINGS: LUNG BASES: There is mild dependent bilateral lower lobe subsegmental atelectasis. No pleural effusion is present. LIVER: The liver is normal in size. No significant focal abnormality is seen. GALLBLADDER: The gallbladder is distended. No calcified gallstones are noted. BILE DUCTS: No intra or extrahepatic ductal distention is seen. SPLEEN: The spleen is normal in size without significant focal abnormality. PANCREAS: The pancreas is normal in size. No ductal distention or calcifications are seen. ADRENAL GLANDS: The adrenal glands are normal in size. KIDNEYS: The kidneys appear slightly small in size. No renal calculi or hydronephrosis is seen. No significant focal renal abnormality is seen. AORTA: The abdominal aorta is tortuous and ectatic with moderate calcific plaque present diffusely. LYMPH NODES: No significantly enlarged lymph nodes are seen. BOWEL: The stomach is mildly distended with contrast. The small bowel and colon appear nondistended. The appendix is not well visualized. There is no evidence for inflammatory change in the right lower quadrant. There are scattered diverticula within the colon. There is no evidence for diverticulitis or colitis. There is a large amount of stool in the rectosigmoid colon. PELVIC ORGANS: No bladder wall thickening is seen. The uterus is not visualized. PERITONEUM: No free intraperitoneal air or fluid is seen. BONES: Total left hip replacement surgery. No significant focal osseous abnormality is seen. IMPRESSION: 1. NO EVIDENCE FOR ACUTE FINDING OR CAUSE FOR THE PATIENT'S ABDOMINAL PAIN IS SEEN. 2. DISTENDED GALLBLADDER. RECOMMEND A RIGHT UPPER QUADRANT ULTRASOUND IF THE PATIENT HAS [facility] Patient Name:SUZETTE SHEEHAN MR: [id number] : 1935 SYMPTOMS REFERRABLE TO THIS REGION. 3. DILATED RECTOSIGMOID COLON WITH LARGE AMOUNT RETAINED STOOL. <Electronically signed by Cristhian Rojas MD in [place]> 02/21/18 1630 Dictated By: Cristhian Rojas MD Dictated Date/Time: 02/21/18 1630 Transcribed Date/Time: 02/21/18 1619 Copy to: Patient Name: SUZETTE SHEEHAN Medical Record#: [id number] Ordering Physician: Lucian Walker [employer] Acct.#: [id number] : 1935 Age: 82 Sex: F Location: [address] [place] [address]/TELEMETRY Exam Date: 02/21/181821 ADM Status: ADM Cathi Order Information: CHEST AP PORTABLE Accession Number: [id number] CPT: 51482 HISTORY: afib COMPARISONS: February 13, 2018 VIEWS: 1: frontal AP view of the chest at 6:34 PM FINDINGS: LINES AND TUBES: None. CARDIOMEDIASTINAL SILHOUETTE: The cardiomediastinal silhouette is normal for portable technique. PLEURA: The costophrenic angles are sharp. No pleural abnormalities are noted. LUNG PARENCHYMA: There is hyperinflation. ABDOMEN: The upper abdomen is clear. There is no subphrenic gas. BONES AND SOFT TISSUES: There is diffuse osteopenia. IMPRESSION: NO ACTIVE CARDIOPULMONARY DISEASE. R1NF Preliminary Imaging Read NO PRELIMINARY - NO FINDINGS <Electronically signed by Genaro Mcginnis MD in [place]> 02/22/18753 Dictated By: Genaro Mcginnis MD Dictated Date/Time: 02/22/18753 Transcribed Date/Time: 02/22/18752 Copy to: Patient Name: SUZETTE SHEEHAN Medical Record#: [id number] Ordering Physician: Lucian Walker [employer] Acct.#: [id number] : 1935 Age: 82 Sex: F Location: [facility] Exam Date: 02/21/181823 ADM Status: ADM Cathi Order Information: US GALL BLADDER Accession Number: [id number] CPT: 32496 EXAM: US Abdomen Limited, Right Upper Quadrant EXAM DATE/TIME: 02/21/2018 6:56 PM CLINICAL HISTORY: 82 years old, female; Pain and signs and symptoms; Nausea and vomiting; Abdominal pain; Generalized; Additional info: N/v TECHNIQUE: Real-time ultrasound of the abdomen with image documentation. Examination was focused on the right upper quadrant. COMPARISON: GB US GALL BLADDER 02/18/2018 10:07 AM FINDINGS: Liver: Unremarkable. No mass. Gallbladder: A 7 mm echogenic structure is noted in the gallbladder fundus which could represent small polyp or stone. The gallbladder is distended, but there is no gallbladder wall thickening. Common bile duct: The extrahepatic common bile duct measures 5 mm. Pancreas: The pancreatic duct is mildly dilated measuring 4 mm. The pancreatic tail is obscured by bowel gas. Remainder of the gland is normal in appearance. Right kidney: The right kidney measures 9.2 x 4.2 x 5.3 cm. No shadowing stones or hydronephrosis. IMPRESSION: 1. Distended gallbladder, but no gallbladder wall thickening or pericholecystic fluid. Small polyp versus stone at gallbladder fundus. 2. Mild pancreatic duct dilatation. Common bile duct is nondilated. To contact [facility] with a general question: [facility] - [phone] For direct physician to physician contact: Physician Hotline - [phone] [facility] ([facility] Facility ID #[id number]) <Electronically signed by Kaci Ochoa MD in [place]> 02/21/181924 Dictated By: Kaci Ochoa MD Dictated Date/Time: 02/21/181924 Transcribed Date/Time: Copy to: EKG Report: Rate 108 SC 173 QTc 487 QRS 47 Poor R wave progress ? anteroseptal previous [place]. Multifocal atrial tachycardia. Other Results/Reports: 02/13/2018 - transthoracic echocardiogram: Conclusions Global left ventricular wall motion and contractility are within normal limits. There is normal left ventricular systolic function. The estimated ejection fraction is 55-60%. This report is only to be considered final once signed by the Provider(s) as displayed in the "<Electronically Signed by >" field (s). Absence of a signature indicates the report is in a draft status and still needs to be finalized. In the event this document was created by someone other than the signing Provider, the individual initiating the document will be listed in the "Entered by:" or "Dictated by:" [place]. Assessment - Problem List Assessment: Patient Problems Atrial fibrillation (Acute) Electrolyte abnormality (Acute) History of abdominal pain (Acute) History of nausea and vomiting (Acute) Infestation by bed bug (Acute) Iron deficiency anemia (Acute) Leukocytosis (Acute) Memory deficits (Acute) Thrombocytosis (Acute) Essential hypertension (Chronic) Hypercholesterolemia (Chronic) Osteoporosis (Chronic) Thickening of esophagus (Chronic) Type 2 diabetes mellitus (Chronic) Weight loss (Chronic) Plan: Leukocytosis (Acute) Thrombocytosis (Acute) She has 2 acute phase signs that usually are hyperacute - raised leukocytes and platelets. During her recent hosital stay she was started on antibacterials, which were stopped when her urine culture was negative. I note her ESR is normal, her procalcitonin is not elevated, and her CRP is barely elevated. During her last admission she had a transthoracic echocardiogram that showed no vegetations and she has no other signs of infective endocarditis. She has no focal symptoms. Her temperature is 99.3F Her CXR is normal and her U/A was negative. We have started her empirically on piperacillin/tazobactam - though I don't know what we are treating. She has had multiple cultures taken. I will follow these acute phase reactants. We need to figure out if she has an occult infection. I will await cultures initially, but I will consider a broad differential diagnosis. Atrial fibrillation (Acute) She has an irregular pulse, but this appears at present due to multifocal atrial beats - she had no clear runs of rapid atrial fibrillation overnight. She has no signs of heart failure. Electrolyte abnormality (Acute) I will replace her potassium History of abdominal pain (Acute)History of nausea and vomiting (Acute) She denies this for a couple of days. She has a benign examination of her abdomen. Her CT abdomen. She has a distended gallbladder on CT abdomen and US gallbladder, but no evidence of wall thickening or pericholic thickening. I will check a HIDA scan to rule out cholecystitis. However, her LFTs are normal. 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 Type 2 diabetes mellitus (Chronic) controlled Weight loss (Chronic) This is longstanding and this may be due to her GI symptoms, diet or failing to thrive. I discussed the above with the patient. I was unable to obtain contact with her son.
[2018-02-22] MEDS: Insulin LISPRO* 1 UNITS UNIT SUBCUT SCH ×3 (09:09→18:28)
[2018-02-22 09:51] LABS: Hematocrit 31 % (35-47); Mean Corpuscular HGB Conc 32 g/dl (31-36); Mean Corpuscular Hemoglobin 28 pg (27-31); Mean Corpuscular Volume 87 fL (80-97); Mean Platelet Volume 6.7 fL (7.4-10.4); Platelet Count 480 10^3/ul (150-450); Red Cell Distribution Width 24 % (10.5-15); White Blood Count 12.6 10^3/ul (3.5-10.8)
[2018-02-22] MEDS ORDERED: D5W 1/2 NS 40 Meq KCL 1000 ML* 1,000 ML IV SCH (10:00)
[2018-02-22] MEDS: Docusate CAP* 100 MG PO SCH ×2 (10:25→19:51)
[2018-02-22] MEDS: Apixaban* 2.5 MG TAB PO SCH ×2 (10:25→19:51)
[2018-02-22] MEDS: Diltiazem CD CAP* 240 MG PO SCH (10:26)
[2018-02-22] MEDS: Folic Acid TAB* 1 MG PO SCH (10:26)
[2018-02-22] MEDS: Omeprazole CAP* 20 MG PO SCH ×2 (10:26→19:52)
[2018-02-22 10:30] LABS: ABS Basophils 0 10^3/ul (0-0.2); ABS Eosinophils 0.1 10^3/ul (0-0.6); ABS Lymphocytes 1.1 10^3/ul (1.0-4.8); ABS Monocytes 0.5 10^3/ul (0-0.8); ABS Neutrophils 10.9 10^3/ul (1.5-7.7); ABS Nucleated RBC 0 10^3/ul; Eosinophil % 0.4 % (0-6); Lymphocyte % 8.5 % (25-47); Nucleated Red Blood Cells % 0
--- NOTE | 2018-02-22 12:46 | HP ---
HISTORY AND PHYSICAL: DATE OF ADMISSION: 02/21/18 HISTORY OF PRESENT ILLNESS: The patient is an 82-year-old female with a history of multiple medical problems including atrial fibrillation, osteoporosis , esophagitis, diabetes, and persistent abdominal pain. Per medical records the has been complaining for several months of intermittent abdominal pain, for which she has been hospitalized multiple times. Her most recent admission at the end of January identified esophagitis on upper endoscopy. The patient this morning notes that she came into the emergency room yesterday for one week of on and off abdominal pain. She says that she feels better after having a bowel movement. She does indicate that she feels better this morning and her abdominal pain has completely resolved. In the past week, when she had had abdominal pain she said that she has not had appetite, and has had some nausea and vomiting. She denies having any fever and confirms that she feels well this morning. PAST MEDICAL HISTORY: 1. Atrial fibrillation. 2. Anemia. 3. Hypertension. 4. Hypercholesterolemia. 5. Osteoporosis. 6. Esophagitis. 7. Diabetes. PAST SURGICAL HISTORY: The patient reports having had an appendectomy in the past, as well as some other unknown surgery. ALLERGIES: No known drug allergies. MEDICATIONS: 1. Eliquis 2.5 mg p.o. b.i.d. 2. Diltiazem 240 mg p.o. daily. 3. Omeprazole 20 mg p.o. b.i.d. 4. Famotidine 20 mg p.o. b.i.d. 5. Zofran 4 mg p.o. q.6 hours as needed. 6. Tylenol 650 mg p.o. q.6 hours as needed. 7. Vitamin B12 injections weekly. SOCIAL HISTORY: The patient denies current smoking. She quit smoking approximately 34 years ago. FAMILY HISTORY: Negative. REVIEW OF SYSTEMS: Negative for fever. Negative for abdominal pain, nausea and vomiting. PHYSICAL EXAMINATION GENERAL: This is an elderly female, somewhat cachectic. VITAL SIGNS: T-max was 99.3 at 3:49 a.m. on 02/22/18, pulse ranges from 70s to 100s, respiratory rate 14 to 18, blood pressure 130s to 150s over 60s to 70s. HEENT: Normocephalic, atraumatic. RESPIRATORY: No increased work of breathing. ABDOMEN: Soft, nontender, and nondistended. EXTREMITIES: No edema. LABORATORY VALUES: Laboratory values from 02/21/18, white blood cell count was 16.2 with hemoglobin of 10, hematocrit is 30, platelets are 461, absolute neutrophils are elevated at 14.5. Sodium 140, potassium 3.2, chloride 109, carbon dioxide 22, BUN is 13, creatinine 0.86, glucose is 111, and calcium is 8.1. IMAGING: Imaging was reviewed. Please see report for details, but ultrasound of the gallbladder on 02/21/18 shows gallbladder with a 7-mm echogenic structure at the gallbladder fundus could be a small polyp or stone. Gallbladder is distended, but there is no gallbladder wall thickening. The common bile duct is 5 mm. Pancreatic duct is mildly dilated at [address] abdomen and pelvis on 02/21/18 shows no evidence for acute finding or cause for the patient's abdominal pain. The gallbladder is distended. No calcified gallstones are noted. ASSESSMENT AND PLAN: Ms. Ma is an 82-year-old female with multiple medical problems who was admitted for one week of abdominal pain, nausea and vomiting. She has been admitted previously for this abdominal pain and has also demonstrated leukocytosis in the past. On admission, her white count was 17 and repeat was 16. Imaging did show that there was a distended gallbladder with hypergenic focus both on the CT scan as well as on the ultrasound. A previous right upper quadrant ultrasound again demonstrated this. It looks like a mural calcification and not actually a gallstone or a polyp. Her CT scan performed yesterday in the emergency room also demonstrates that she has a large amount of stool in the colon and the patient notes that with evacuation of her fecal contents, she actually feels improved of abdominal pain. It is possible that her persistent abdominal pain could be from chronic constipation. It appears on both based on the imaging that was performed that the gallbladder although distended did not demonstrate signs of acute or chronic cholecystitis as there is no gallbladder wall thickening, stones or pericholecystic fluid. The patient is nontender on exam and her LFTs are also normal. It is unlikely that her gallbladder is the source of her abdominal complaint. However, a HIDA scan can be ordered to further evaluate for acute cholecystitis. Thank you for this consultation. Please feel free to contact General Surgery should she have any other further questions. [id number]/[facility] #: [id number] [facility]ITAL[facility]
[2018-02-22] MEDS: Acetaminophen TAB* 325 MG PO PRN (19:50)
[2018-02-22] MEDS: Senna TAB PO SCH (19:52)
--- NOTE | 2018-02-22 23:18 | CONS ---
GASTROENTEROLOGY CONSULT NOTE: DATE OF CONSULT: 02/22/18 REQUESTING PROVIDER: Jamey Goncalves MD REASON FOR CONSULT: Nausea, vomiting, and elevated white count. HISTORY OF PRESENT ILLNESS: Ms. Ma is an 82-year-old woman with a history of AFib with RVR, on Xarelto; possible dementia; diabetes; hypertension; hyperlipidemia; and recent diagnosis of severe esophagitis, who is re-admitted after recent discharge with complaints of nausea, vomiting and weakness. History obtained from the patient and admission H&P. [place] [facility] [place] for nausea, vomiting and weakness. While in the ED, she was noted to have an elevated white count as well as an elevated CRP. CT scan showed a distended gallbladder and retained stool in the colon. She was also noted to have intermittent rapid AFib while in the ER. Admitted to Medicine. GI consulted. To review, Dr. Barragan performed an EGD on 02/06 and noted distal esophageal narrowing and erosive esophagitis which was felt to be fairly severe. An adult gastroscope had to be switched out for pediatric gastroscope in order to traverse the distal esophagus. Recommendation was to start a PPI twice a day and repeat an EGD in 6 to 8 weeks to further eval. Biopsies demonstrate ulcerated acutely inflamed mucosa without neoplasia or fungal organisms. Ms. Ma reports that she has been using the PPI b.i.d. On interview, Ms. Ma states that she is feeling quite well. She states that she has not had any nausea or vomiting since Tuesday. She denies any abdominal pain or dysphagia. She was able to eat dinner. She had a bowel movement this evening. Overall, she is in good spirits with no complaints. Of note, patient is on contact precautions for bedbugs. PAST MEDICAL HISTORY: Anemia; cognitive impairment with question of dementia; diabetes; hypertension; hyperlipidemia; history of duodenal ulcer; AFib, on anticoagulation; and recent diagnosis of severe esophagitis with associated esophageal narrowing. PAST SURGICAL HISTORY: Hysterectomy, appendectomy, cataract extraction, and left total hip arthroplasty. MEDICATIONS: 1. Omeprazole 20 mg twice a day. 2. Eliquis 2.5 mg twice a day. 3. Diltiazem 240 daily. 4. Tylenol as needed. ALLERGIES: No known drug allergies. FAMILY HISTORY: No known GI or liver disease. SOCIAL HISTORY: Per admission H and P, the patient is a former smoker. He occasionally drinks some alcohol. No drug use. REVIEW OF SYSTEMS: Twelve systems were reviewed and negative except as above. Of note, the patient has had significant weight loss over the past few months. She does not think that her weight has changed at all recently. PHYSICAL EXAM: Vital Signs: Afebrile, heart rate ranging from 70s to 90s, blood pressure 120s to 30s over 60s to 70s, 100% on room air. General: Pleasant, elderly woman. No acute distress, sitting in bed, finishing dinner. HEENT: Mucous membranes moist. Cardiovascular: Irregularly irregular. Pulm: Breathing comfortably. Lungs: Clear. Abdomen: Positive bowel sounds. Soft, nontender, and nondistended. Skin: No jaundice. DIAGNOSTIC STUDIES/LAB DATA: Labs reviewed. On admission yesterday, the patient 's white count was 17.1. Repeat labs have demonstrated that this is lowered to 12.6. Her hematocrit was 34 on admission, now 31. C-reactive protein elevated at 9.57. An abdominal CT scan performed yesterday afternoon on admission. This demonstrated no acute findings other than distended gallbladder and dilated rectosigmoid colon with large amount of retained stool. An ultrasound of abdomen was then performed, which demonstrated distended gallbladder without gallbladder wall thickening as well as mild pancreatic duct dilation to 4 mm. CBD measured 5 mm. HIDA scan also obtained this morning and demonstrated normal opacification of the gallbladder with the slight hold up within the common bile duct. IMPRESSION AND RECOMMENDATIONS: Ms. Ma is an 82-year-old woman with an extensive past medical history and recent admission at which point, she was diagnosed with severe esophagitis and associated distal esophageal narrowing, who is admitted with nausea, vomiting and weakness as well as abnormal labs. On interview, Ms. Ma states that her nausea and vomiting have now resolved. She is eating without any issue including dysphagia or abdominal pain. She had a bowel movement today. Labs are notable for an elevated white count and CRP. I am not quite certain the etiology of these lab abnormalities, which do seem to be improving with fluid resuscitation suggestive of some component of hemoconcentration. Imaging has revealed a distended gallbladder with subsequent negative HIDA scan making cholecystitis. Gallbladder ultrasound did note mildly dilated pancreatic duct. This is of unclear clinical significance, but I think warrants further evaluation given her history of weight loss and nonspecific symptoms. - Recommend MRI pancreas/MRCP to evaluate pancreas given mild dilation of PD seen on ultrasound. - Continue PPI b.i.d. - Will need repeat EGD in 4 weeks or so as an outpatient. Consider repeat while inpatient if nausea/vomiting or dysphagia symptoms return. Thank you very much for this consult. We will follow up on recommended imaging as above. [id number]/[facility] [place] #: [id number] [facility]ITAL[facility]
[2018-02-23] MEDS: ZOSYN 3.375 GM Q8H per EXTENDED INFUSION IVPB SCH ×6 (03:04→18:55)
[2018-02-23 06:13] LABS: Hematocrit 27 % (35-47); Hemoglobin 8.9 g/dl (12.0-16.0); Mean Corpuscular HGB Conc 33 g/dl (31-36); Mean Corpuscular Hemoglobin 29 pg (27-31); Mean Corpuscular Volume 87 fL (80-97); Mean Platelet Volume 6.3 fL (7.4-10.4); Platelet Count 353 10^3/ul (150-450); Red Blood Count 3.12 10^6/ul (4.00-5.40); Red Cell Distribution Width 23 % (10.5-15); White Blood Count 6.8 10^3/ul (3.5-10.8)
[2018-02-23 06:40] LABS: ABS Basophils 0 10^3/ul (0-0.2); ABS Eosinophils 0.5 10^3/ul (0-0.6); ABS Monocytes 0.4 10^3/ul (0-0.8); ABS Neutrophils 4.8 10^3/ul (1.5-7.7); ABS Nucleated RBC 0 10^3/ul; Eosinophil % 7.3 % (0-6); Lymphocyte % 14.3 % (25-47); Nucleated Red Blood Cells % 0.1
--- NOTE | 2018-02-23 07:33 | PN ---
Subjective - Subjective Reason for Note: Progress Note History: She has had no further abdominal pain, nausea or vomiting. She has been hungry and eating well. She remains concerned at her group home weight loss. She states her appetite is very good. She has no other new symptoms 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 Type 2 diabetes mellitus (Chronic) Weight loss (Chronic) Current Medications: Current Medications Acetaminophen (Tylenol Tab*) 650 mg PO Q4H PRN PRN Reason: FEVER/PAIN Last Admin: 02/22/18 19:50 Dose: 650 mg Apixaban (Eliquis) 2.5 mg PO BID [facility] Last Admin: 02/22/18 19:51 Dose: 2.5 mg Dextrose (D50w Syringe 50 Ml*) 12.5 gm IV PUSH .FOR FS < 60 - SS PRN PRN Reason: FS < 60 Diltiazem HCl (Cardizem Cd Cap*) 240 mg PO DAILY [facility] Last Admin: 02/22/18 10:26 Dose: 240 mg Docusate Sodium (Colace Cap*) 100 mg PO BID [facility] Last Admin: 02/22/18 19:51 Dose: 100 mg Folic Acid (Folvite Tab*) 1 mg PO DAILY [facility] Last Admin: 02/22/18 10:26 Dose: 1 mg Piperacillin Sod/Tazobactam (Sod 3.375 gm/ Sodium Chloride) 100 mls @ 25 mls/ hr IVPB Q8H [facility] Last Admin: 02/23/18 03:04 Dose: 25 mls/hr Insulin Human Lispro (Humalog*) 0 units SUBCUT AC [facility]; Protocol Last Admin: 02/22/18 18:28 Dose: Not Given Omeprazole (Prilosec Cap*) 20 mg PO BID [facility] Last Admin: 02/22/18 19:52 Dose: 20 mg Ondansetron HCl (Zofran Inj*) 4 mg IV Q6H PRN PRN Reason: NAUSEA Last Admin: 02/21/18 20:57 Dose: 4 mg Pharmacy Consult (Zosyn Per Pharmacy*) 1 note FOLLOW UP .ZOSYN PER PHARMACY GERALDO Senna (Senokot Tab*) 2 tab PO BEDTIME [facility] Last Admin: 02/22/18 19:52 Dose: 2 tab Home Medications: Home Medications Medication Instructions Recorded Confirmed Type Cyanocobalamin INJ * [Vitamin B12 1,000 mcg INJ WEEKLY 12/25/17 02/21/18 History INJ *] Acetaminophen TAB* [Tylenol TAB*] 650 mg PO Q6H PRN tab 02/16/18 02/21/18 Rx Apixaban* [Eliquis*] 2.5 mg PO BID #60 tab 02/16/18 02/21/18 Rx Omeprazole CAP* [Prilosec CAP* 20 20 mg PO BID cap.dr 02/16/18 02/21/18 Rx MG] dilTIAZem HCl [Diltiazem 24Hr ER] 240 mg PO DAILY #30 tab.er.24h 02/16/18 Rx Famotidine TAB* [Pepcid 20 MG TAB*] 20 mg PO BID #40 tab 02/18/18 02/21/18 Rx Ondansetron TAB* [Zofran 4 MG Tab*] 4 mg PO Q6H PRN #15 tab 02/18/18 02/21/18 Rx Allergies: Allergies Allergy/AdvReac Type Severity Reaction Status Date / Time No Known Allergies Allergy Verified 02/13/18 15:50 Objective - Vital Signs Vital Signs: Vital Signs 02/22/18 02/22/18 02/22/18 08:31 13:20 15:14 Temperature 99.6 F 97.7 F 98.9 F Pulse Rate 73 73 71 Respiratory 18 16 16 Rate Blood Pressure 146/72 122/63 134/68 (mmHg) O2 Sat by Pulse 100 100 100 Oximetry 02/22/18 02/22/18 02/22/18 15:15 19:56 23:58 Temperature 98.9 F 97.7 F 99.0 F Pulse Rate 71 80 76 Respiratory 16 16 17 Rate Blood Pressure 134/68 112/47 112/53 (mmHg) O2 Sat by Pulse 100 100 98 Oximetry 02/23/18 03:41 Temperature 98.5 F Pulse Rate 71 Respiratory 16 Rate Blood Pressure 122/53 (mmHg) O2 Sat by Pulse 97 Oximetry - Intake and Output Intake and Output: Intake & Output 02/20/18 02/21/18 02/22/18 02/23/18 11:59 11:59 11:59 11:59 Intake Total 1695 360 Output Total 200 400 Balance 1495 -40 Weight 93 lb 12.8 oz Intake: IV Fluids 1175 120 Oral 520 240 Output: Urine 200 400 Other: Estimated Void Large # Bowel Movements 1 1 Estimated Stool Amount Small Small # Voids 1 ADLs: Meal Record Start: 02/21/18 18: 52 Freq: DAILY@0900,1400,1800 Status: Active Protocol: Created 02/21/18 18:52 System (Rec: 02/21/18 18:52 System [id number]) Document 02/22/18 09:00 [id number] (Rec: 02/22/18 12:29 [id number] TELE-C01) Document 02/22/18 14:00 [id number] (Rec: 02/22/18 14:39 [id number] TELE-M15) Document 02/22/18 19:52 [id number] (Rec: 02/22/18 19:52 [id number] TELE-C01) Intake and Output Start: 02/21/18 12: 12 Freq: Status: Active Protocol: Created 02/21/18 12:12 System (Rec: 02/21/18 12:12 System [id number]) Intake and Output Start: 02/21/18 18: 52 Freq: DAILY@0600,1400,2200 Status: Active Protocol: Created 02/21/18 18:52 System (Rec: 02/21/18 18:52 System TELE-C03) Document 02/21/18 21:21 [id number] (Rec: 02/21/18 21:22 [id number] TELE-C01) Document 02/22/18 06:00 [id number] (Rec: 02/22/18 06:51 [id number] TELE-C05) Document 02/22/18 14:00 [id number] (Rec: 02/22/18 14:40 [id number] TELE-M15) Document 02/22/18 22:06 [id number] (Rec: 02/22/18 22:07 [id number] TELE-C09) Document 02/23/18 06:20 [id number] (Rec: 02/23/18 06:21 [id number] TELE-C10) - Physical Exam General: No Cyanosis, No Anemia, No Jaundice, No Clubbing Lungs and Chest: Yes: Chest Expansion Full, Chest Expansion Symetrica, Percussion Note Resonant, Vessicular Breath Sounds. No: Crackles, Wheezes Heart Rate and Rhythm: Regular Additional Cardiovascular: Yes: Normal Heart Sounds. No: Heart Murmur, Pedal Edema Abdominal Exam: Yes: Soft, Bowel Sounds Present. No: Distention, Abdominal Mass , Abdominal Tenderness Results - Results Lab Results: Laboratory Results - last 24 hr 02/22/18 02/22/18 02/22/18 05:38 05:38 05:39 WBC 12.6 H RBC 3.60 L Hgb 10.0 L Hct 31 L MCV 87 MCH 28 MCHC 32 RDW 24 H Plt Count 480 H MPV 6.7 L Neut % (Auto) 86.5 H Lymph % (Auto) 8.5 L Parker % (Auto) 4.3 Eos % (Auto) 0.4 Baso % (Auto) 0.3 Absolute Neuts (auto) 10.9 H Absolute Lymphs (auto) 1.1 Absolute Monos (auto) 0.5 Absolute Eos (auto) 0.1 Absolute Basos (auto) 0 Absolute Nucleated RBC 0 Nucleated RBC % 0 Anisocytosis Sodium 140 Potassium Chloride Carbon Dioxide Anion Gap 9 BUN 13 Creatinine Est GFR ( Amer) Est GFR (Non-Af Amer) BUN/Creatinine Ratio 15.1 Glucose POC Glucose (mg/dL) Hemoglobin A1c 5.2 Calcium Total Bilirubin Direct Bilirubin Indirect Bilirubin AST ALT Alkaline Phosphatase C-Reactive Protein Total Protein Albumin Globulin Albumin/Globulin Ratio 02/22/18 02/22/18 02/22/18 08:41 13:20 16:45 WBC RBC Hgb Hct MCV MCH MCHC RDW Plt Count MPV Neut % (Auto) Lymph % (Auto) Parker % (Auto) Eos % (Auto) Baso % (Auto) Absolute Neuts (auto) Absolute Lymphs (auto) Absolute Monos (auto) Absolute Eos (auto) Absolute Basos (auto) Absolute Nucleated RBC Nucleated RBC % Anisocytosis Sodium Potassium Chloride Carbon Dioxide Anion Gap BUN Creatinine Est GFR ( Amer) Est GFR (Non-Af Amer) BUN/Creatinine Ratio Glucose POC Glucose (mg/dL) 98 89 114 H Hemoglobin A1c Calcium Total Bilirubin Direct Bilirubin Indirect Bilirubin AST ALT Alkaline Phosphatase C-Reactive Protein Total Protein Albumin Globulin Albumin/Globulin Ratio 02/23/18 02/23/18 05:40 05:40 WBC 6.8 RBC 3.12 L Hgb 8.9 L Hct 27 L MCV 87 MCH 29 MCHC 33 RDW 23 H Plt Count 353 MPV 6.3 L Neut % (Auto) 71.3 Lymph % (Auto) 14.3 L Parker % (Auto) 6.4 Eos % (Auto) 7.3 H Baso % (Auto) 0.7 Absolute Neuts (auto) 4.8 Absolute Lymphs (auto) 1.0 Absolute Monos (auto) 0.4 Absolute Eos (auto) 0.5 Absolute Basos (auto) 0 Absolute Nucleated RBC 0 Nucleated RBC % 0.1 Anisocytosis 2+ Sodium 140 Potassium 3.8 Chloride 113 H Carbon Dioxide 23 Anion Gap 4 BUN 11 Creatinine 0.87 Est GFR ( Amer) 75.1 Est GFR (Non-Af Amer) 62.0 BUN/Creatinine Ratio 12.6 Glucose 90 POC Glucose (mg/dL) Hemoglobin A1c Calcium 7.7 L Total Bilirubin 0.20 Direct Bilirubin 0.10 Indirect Bilirubin 0.1 L AST 10 L ALT 8 Alkaline Phosphatase 40 C-Reactive Protein 11.60 H Total Protein 5.0 L Albumin 2.7 L Globulin 2.3 Albumin/Globulin Ratio 1.2 Radiology Results: Patient Name: SIMONE SHEEHAN Medical Record#: [id number] Ordering Physician: Jamey Goncalves MD Acct.#: [id number] : 1935 Age: 82 Sex: F Location: [address] [place] [address]/TELEMETRY Exam Date: 02/22/18 0903 ADM Status: ADM Cathi Order Information: NM HEPATOBIL VISUAL SCAN-HIDA Accession Number: [id number] CPT: 32590 INDICATION: Distended gallbladder, infection. Comparison: Comparison is made with a prior right upper quadrant ultrasound from February 21, 2018. Technique: The patient was given an intravenous injection of 6.4 mCi of technetium 99m Choletec intravenously and multiple images of the right upper quadrant were obtained. FINDINGS: The images demonstrate normal homogeneous uptake of radiopharmaceutical in the liver. No significant focal abnormality is seen. There is also prompt visualization of the extrahepatic bile ducts and gallbladder. There is slight holdup the radiopharmaceutical within the extrahepatic ducts. The small bowel is visualized on 2 hr.delayed images. IMPRESSION: 1. NORMAL OPACIFICATION OF THE GALLBLADDER. 2. SLIGHT HOLDUP OF RADIOPHARMACEUTICAL WITHIN THE COMMON BILE DUCT. <Electronically signed by Cristhian Rojas MD in OV> 02/22/181316 Dictated By: Cristhian Rojas MD Dictated Date/Time: 02/22/181316 Transcribed Date/Time: 02/22/181314 Copy to: CC:Jamey Goncalves MD; Jamey Moreno DO; Alyssa Huggins MD; Karely Martini MD; Sydnee Khalil MD [facility] Urgent [facility] Urgent [facility] [address] [place] [address] ph ([phone]) ph ([phone]) ph ([phone]) This report is only to be considered final once signed by the Provider(s) as displayed in the "<Electronically Signed by >" field (s). Absence of a signature indicates the report is in a draft status and still needs to be finalized. In the event this document was created by someone other than the signing Provider, the individual initiating the document will be listed in the "Entered by:" or "Dictated by:" [place]. 1 of 1 Assessment - Problem List Assessment: Patient Problems Atrial fibrillation (Acute) Electrolyte abnormality (Acute) History of abdominal pain (Acute) History of nausea and vomiting (Acute) Infestation by bed bug (Acute) Iron deficiency anemia (Acute) Leukocytosis (Acute) Memory deficits (Acute) Thrombocytosis (Acute) Essential hypertension (Chronic) Hypercholesterolemia (Chronic) Osteoporosis (Chronic) Thickening of esophagus (Chronic) Type 2 diabetes mellitus (Chronic) Weight loss (Chronic) Plan: History of abdominal pain (Acute)History of nausea and vomiting (Acute) Leukocytosis (Acute) I appreciate Shanice Kothari MD's consultation. My best bet is that this is due to passage of a gallstone. I note the common bile duct is not dilated, but the pancreatic duct is dilated. She is having an MRCP and abdominal MRI today to rule out pancreatic pathology. I plan to discharge her tomorrow. I don't think she requires a cholecystectomy or a sphincterotomy at present Atrial fibrillation (Acute) None on telemetry overnight - discontinued Electrolyte abnormality (Acute) Resolved Infestation by bed bug (Acute) Iron deficiency anemia (Acute) ongoing Weight loss (Chronic) We will rule out a pancreatic tumor. I discussed the above with the patient and she agrees to the management plan.
[2018-02-23] MEDS ORDERED: D5W 1/2 NS KCl 20 Meq 1000 ML* 1,000 ML IV SCH (08:00)
[2018-02-23] MEDS: Insulin LISPRO* 1 UNITS UNIT SUBCUT SCH ×3 (08:20→16:55)
[2018-02-23] MEDS: Diltiazem CD CAP* 240 MG PO SCH (08:25)
[2018-02-23] MEDS: Docusate CAP* 100 MG PO SCH ×2 (08:25→20:02)
[2018-02-23] MEDS: Folic Acid TAB* 1 MG PO SCH (08:26)
[2018-02-23] MEDS: Apixaban* 2.5 MG TAB PO SCH ×2 (08:26→20:01)
[2018-02-23] MEDS: Omeprazole CAP* 20 MG PO SCH ×2 (08:27→20:01)
[2018-02-23] MEDS ORDERED: Gadoteridol* (CONTRAST) 279.3 MG/ML 10 ML IV ONE (11:22)
--- NOTE | 2018-02-23 14:39 | CONSULT ---
Consult Consult: Consult for Medical Decision Making Capacity S: Psychiatry is asked to evaluate capacity for this 82 y.o. , white, female [place] immigrant with a history of atrial fibrillation, unexplained weight loss and recent serial [place] [facility] [place] in order to determine whether she is cognitively able to manage her affairs and assure her own safety in an independent setting, such as the trailer she's currently residing in. I spoke with the attending, Dr. Jamey Goncalves, who was uncertain what treatment intervention was indicated, therefore we are not able to render a clear capacity judgment. Nevertheless, there is a question as to whether she has cognitive deficits that would impair independent functioning. I spoke with the therapeutic case manager on , Leahpatricia Walker, who indicates that the patient has had visiting nursing, [id number], and other supports in the past, but is uncertain how those are going or if she qualifies for additional services. The patient's son, who is her proxy, has expressed that she cannot live alone any further, as evidenced by behaviors such as becoming disoriented, not eating well and placing cold food items in the cupboards. On exam the patient is calm and cooperative. She adamantly denies the need for SNF or TONY placement, saying "That's the same home I've lived in for over 40 years!" She is not able to identify much in the way of risks of going home without further support, however, she is agreeable to inviting outside agencies into her home to render assistance with such things as meals, medication administration, cleaning and assuring safety. "I worked for [employer] for 35 years. 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 I'll take whatever help you can give me." O: the patient scores 19/30 on the MMSE, which correlates with a rating of " Mild Cognitive Impairment". The patient has clear deficits in temporal orientation, delayed recall and attention, however, language, registration, spacial orientation, command following and praxis are relatively spared. A/P: Capacity: again, without an indicated treatment specified by the primary provider, capacity cannot be judged. It is the judgment of this provider, however, that with appropriate supports the patient could successfully function in her home. I have discussed these findings with Ms. Walker and will follow up tomorrow (02/24) to see what additional services would be available in the community to keep her out of a shelter. I will follow up with Dr. Goncalves at that time with any recommendations regarding disposition. Ms. Ma is an interesting person. Thank you for the consult.
[2018-02-23] MEDS: Senna TAB PO SCH (20:02)
[2018-02-24] MEDS: ZOSYN 3.375 GM Q8H per EXTENDED INFUSION IVPB SCH ×6 (03:01→19:14)
[2018-02-24] MEDS: Ondansetron INJ* 2 MG/ML VIAL IV PRN ×2 (03:01→20:11)
[2018-02-24] MEDS: Acetaminophen TAB* 325 MG PO PRN (03:53)
[2018-02-24] MEDS ORDERED: Acetaminophen TAB* 325 MG PO STA (05:58)
[2018-02-24 06:18] LABS: Hematocrit 29 % (35-47); Hemoglobin 9.3 g/dl (12.0-16.0); Mean Corpuscular HGB Conc 32 g/dl (31-36); Mean Corpuscular Hemoglobin 28 pg (27-31); Mean Corpuscular Volume 88 fL (80-97); Mean Platelet Volume 6.3 fL (7.4-10.4); Platelet Count 393 10^3/ul (150-450); Red Blood Count 3.28 10^6/ul (4.00-5.40); Red Cell Distribution Width 23 % (10.5-15); White Blood Count 7.8 10^3/ul (3.5-10.8)
[2018-02-24 06:33] LABS: ABS Basophils 0 10^3/ul (0-0.2); ABS Eosinophils 0.7 10^3/ul (0-0.6); ABS Lymphocytes 1.4 10^3/ul (1.0-4.8); ABS Monocytes 0.4 10^3/ul (0-0.8); ABS Neutrophils 5.4 10^3/ul (1.5-7.7); ABS Nucleated RBC 0 10^3/ul; Eosinophil % 8.6 % (0-6); Lymphocyte % 17.5 % (25-47); Nucleated Red Blood Cells % 0
[2018-02-24 06:36] LABS: EGFR Non-African American 66.4 (>60)
--- NOTE | 2018-02-24 08:05 | PN ---
Subjective - Subjective Reason for Note: Progress Note History: She declined the MRCP yesterday and also declined something to help with her phobia. She denies any nausea, vomiting or abdominal pain. This morning she has had some pain in her lower gum/jaw. She denies chest pain, palpitations, shortness of breath. I reviewed Dr. Chung's note. PT and OT has not reviewed her for safety at home/skilled needs. 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 Type 2 diabetes mellitus (Chronic) Weight loss (Chronic) Current Medications: Current Medications Acetaminophen (Tylenol Tab*) 650 mg PO Q4H PRN PRN Reason: FEVER/PAIN Last Admin: 02/24/18 03:53 Dose: 650 mg Acetaminophen/Codeine Phosphate (Tylenol/Codeine 30 Mg Tab*) 1 tab PO Q6H PRN PRN Reason: PAIN - MODERATE TO SEVERE Apixaban (Eliquis) 2.5 mg PO BID [facility] Last Admin: 02/23/18 20:01 Dose: 2.5 mg Dextrose (D50w Syringe 50 Ml*) 12.5 gm IV PUSH .FOR FS < 60 - SS PRN PRN Reason: FS < 60 Diltiazem HCl (Cardizem Cd Cap*) 240 mg PO DAILY [facility] Last Admin: 02/23/18 08:25 Dose: 240 mg Docusate Sodium (Colace Cap*) 100 mg PO BID [facility] Last Admin: 02/23/18 20:02 Dose: Not Given Folic Acid (Folvite Tab*) 1 mg PO DAILY [facility] Last Admin: 02/23/18 08:26 Dose: 1 mg Piperacillin Sod/Tazobactam (Sod 3.375 gm/ Sodium Chloride) 100 mls @ 25 mls/ hr IVPB Q8H [facility] Last Admin: 02/24/18 03:01 Dose: 25 mls/hr Insulin Human Lispro (Humalog*) 0 units SUBCUT [facility]; Protocol Last Admin: 02/23/18 16:55 Dose: 1 unit Omeprazole (Prilosec Cap*) 20 mg PO BID [facility] Last Admin: 02/23/18 20:01 Dose: 20 mg Ondansetron HCl (Zofran Inj*) 4 mg IV Q6H PRN PRN Reason: NAUSEA Last Admin: 02/24/18 03:01 Dose: 4 mg Pharmacy Consult (Zosyn Per Pharmacy*) 1 note FOLLOW UP .ZOSYN PER PHARMACY [facility] Senna (Senokot Tab*) 2 tab PO BEDTIME [facility] Last Admin: 02/23/18 20:02 Dose: Not Given Home Medications: Home Medications Medication Instructions Recorded Confirmed Type Cyanocobalamin INJ * [Vitamin B12 1,000 mcg INJ WEEKLY 12/25/17 02/21/18 History INJ *] Acetaminophen TAB* [Tylenol TAB*] 650 mg PO Q6H PRN tab 02/16/18 02/21/18 Rx Apixaban* [Eliquis*] 2.5 mg PO BID #60 tab 02/16/18 02/21/18 Rx Omeprazole CAP* [Prilosec CAP* 20 20 mg PO BID cap.dr 02/16/18 02/21/18 Rx MG] dilTIAZem HCl [Diltiazem 24Hr ER] 240 mg PO DAILY #30 tab.er.24h 02/16/18 Rx Famotidine TAB* [Pepcid 20 MG TAB*] 20 mg PO BID #40 tab 02/18/18 02/21/18 Rx Ondansetron TAB* [Zofran 4 MG Tab*] 4 mg PO Q6H PRN #15 tab 02/18/18 02/21/18 Rx Allergies: Allergies Allergy/AdvReac Type Severity Reaction Status Date / Time No Known Allergies Allergy Verified 02/13/18 15:50 Objective - Vital Signs Vital Signs: Vital Signs 02/23/18 02/23/18 02/23/18 08:14 12:00 15:49 Temperature 98.6 F 99.0 F 97.7 F Pulse Rate 70 67 74 Respiratory 18 16 16 Rate Blood Pressure 117/57 126/50 134/53 (mmHg) O2 Sat by Pulse 99 100 100 Oximetry 02/23/18 02/23/18 02/23/18 19:00 21:38 23:17 Temperature 98.5 F 98.7 F Pulse Rate 64 69 Respiratory 18 16 16 Rate Blood Pressure 123/55 127/46 (mmHg) O2 Sat by Pulse 99 100 Oximetry - Intake and Output Intake and Output: Intake & Output 02/21/18 02/22/18 02/23/18 02/24/18 11:59 11:59 11:59 11:59 Intake Total 1695 460 675 Output Total 200 400 300 Balance 1495 60 375 Weight 93 lb 12.8 oz 93 lb 12.8 oz Intake: IV Fluids 1175 120 IVPB 100 315 Zosyn 315 Oral 520 240 360 Output: Urine 200 400 300 Other: Estimated Void Large Large # Bowel Movements 1 1 1 Estimated Stool Amount Small Small Small # Voids 1 3 ADLs: Meal Record Start: 02/21/18 18: 52 Freq: DAILY@0900,1400,1800 Status: Active Protocol: Created 02/21/18 18:52 System (Rec: 02/21/18 18:52 System TELE-C03) Document 02/22/18 09:00 [id number] (Rec: 02/22/18 12:29 [id number] TELE-C01) Document 02/22/18 14:00 [id number] (Rec: 02/22/18 14:39 [id number] TELE-M15) Document 02/22/18 19:52 [id number] (Rec: 02/22/18 19:52 [id number] TELE-C01) Document 02/23/18 09:00 [id number] (Rec: 02/23/18 11:21 [id number] TELE-C08) Document 02/23/18 14:00 [id number] (Rec: 02/23/18 15:23 [id number] TELE-C01) Document 02/23/18 21:13 [id number] (Rec: 02/23/18 21:13 [id number] TELE-C13) Intake and Output Start: 02/21/18 12: 12 Freq: Status: Active Protocol: Created 02/21/18 12:12 System (Rec: 02/21/18 12:12 System ED-C23) Intake and Output Start: 02/21/18 18: 52 Freq: DAILY@0600,1400,2200 Status: Active Protocol: Created 02/21/18 18:52 System (Rec: 02/21/18 18:52 System TELE-C03) Document 02/21/18 21:21 [id number] (Rec: 02/21/18 21:22 [id number] TELE-C01) Document 02/22/18 06:00 [id number] (Rec: 02/22/18 06:51 [id number] TELE-C05) Document 02/22/18 14:00 [id number] (Rec: 02/22/18 14:40 [id number] TELE-M15) Document 02/22/18 22:06 [id number] (Rec: 02/22/18 22:07 [id number] TELE-C09) Document 02/23/18 06:20 [id number] (Rec: 02/23/18 06:21 [id number] TELE-C10) Document 02/23/18 14:00 [id number] (Rec: 02/23/18 15:23 [id number] TELE-C01) Document 02/23/18 21:57 [id number] (Rec: 02/23/18 22:00 [id number] TELE-C13) Document 02/24/18 06:00 [id number] (Rec: 02/24/18 06:12 [id number] TELE-C05) - Physical Exam General Physical Exam Comment: Warm and well perfused. Thin bordering on cachectic. Oral examination - lower gum has 2 teeth present which are likely 22 and 23. There is no swelling or abscess in her gum line and there is no tenderness. She is clear that the pain is in her mouth. She has none in her neck or chest. General: No Cyanosis, No Anemia, No Jaundice, No Clubbing Skin: Normal: Rash Lungs and Chest: Yes: Chest Expansion Full, Chest Expansion Symetrica, Percussion Note Resonant, Vessicular Breath Sounds. No: Crackles, Wheezes, Respiratory Distress, Use of Accessory Muscles Heart Rate and Rhythm: Regular JVP: Not Elevated Additional Cardiovascular: Yes: Normal Heart Sounds. No: Heart Murmur, Pedal Edema Abdominal Exam: Yes: Soft, Bowel Sounds Present. No: Distention, Abdominal Mass , Abdominal Tenderness Results - Results Lab Results: Laboratory Results - last 24 hr 02/23/18 02/23/18 02/23/18 08:17 12:03 16:49 WBC RBC Hgb Hct MCV MCH MCHC RDW Plt Count MPV Neut % (Auto) Lymph % (Auto) Davie % (Auto) Eos % (Auto) Baso % (Auto) Absolute Neuts (auto) Absolute Lymphs (auto) Absolute Monos (auto) Absolute Eos (auto) Absolute Basos (auto) Absolute Nucleated RBC Nucleated RBC % Sodium Potassium Chloride Carbon Dioxide Anion Gap BUN Creatinine Est GFR ( Amer) Est GFR (Non-Af Amer) BUN/Creatinine Ratio Glucose POC Glucose (mg/dL) 107 H 98 184 H Calcium 02/24/18 02/24/18 02/24/18 06:03 06:03 07:16 WBC 7.8 RBC 3.28 L Hgb 9.3 L Hct 29 L MCV 88 MCH 28 MCHC 32 RDW 23 H Plt Count 393 MPV 6.3 L Neut % (Auto) 68.9 Lymph % (Auto) 17.5 L Davie % (Auto) 4.7 Eos % (Auto) 8.6 H Baso % (Auto) 0.3 Absolute Neuts (auto) 5.4 Absolute Lymphs (auto) 1.4 Absolute Monos (auto) 0.4 Absolute Eos (auto) 0.7 H Absolute Basos (auto) 0 Absolute Nucleated RBC 0 Nucleated RBC % 0 Sodium 140 Potassium 3.7 Chloride 111 Carbon Dioxide 22 Anion Gap 7 BUN 8 Creatinine 0.82 Est GFR ( Amer) 80.4 Est GFR (Non-Af Amer) 66.4 BUN/Creatinine Ratio 9.8 Glucose 99 POC Glucose (mg/dL) 98 Calcium 7.8 L Assessment - Problem List Assessment: Patient Problems History of abdominal pain (Acute) History of nausea and vomiting (Acute) Iron deficiency anemia (Acute) Memory deficits (Acute) Pain in gums (Acute) Starvation due to lack of food (Acute) Atrial fibrillation (Chronic) Essential hypertension (Chronic) Hypercholesterolemia (Chronic) Infestation by bed bug (Chronic) Osteoporosis (Chronic) Thickening of esophagus (Chronic) Type 2 diabetes mellitus (Chronic) Weight loss (Chronic) Plan: History of abdominal pain (Acute)History of nausea and vomiting (Acute) Leukocytosis and thrombocytosis - these have all resolved. It may be that she passed a gallstone or has a pancreatic lesion, but she declines an MRI abdo and MRCP. She is eating and drinking again and has a good appetite. Memory deficits (Acute) Starvation due to lack of food (Acute) Weight loss ( Chronic) I have reviewed Dr. Chung's note. She is orientated in place (' [facility]') and person, but not time (fall, ?, date?). She can give a partial account of her presence here. However, there are significant gaps in her memory and confabulation. For example, she previously received [employer] and loved it. She thinks it is still happening. However, it stopped and neither [employer] nor the patient know why. She states she is receiving her food from her neighbors. She thinks she is managing well at her home, and there is evidence she isn't. She states she continues to drive and doesn't get lost. She states she would accept help and "love it" - [employer], visiting nurse and [employer]. I discussed group home facility - she stated she would love that also. 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 She would accept a trial at [facility]. However, I question her insight. She thinks she would be able to drive if she lived there. On 12/30/17 her weight was 103 lbs in my office, she is 93 lbs at the hospital. I do not think this is just due to her GI symptoms. I think she is not eating and is not aware of this. She eats just fine when food is presented. We are obtaining an OT/PT consultation in terms of whether she requires skilled care in terms of ADLs. I spoke with her son Manuel, he thinks she should be in a SNF. He thinks she is not safe at home - I agree with this as I think she will of starvation. I do not thinks she has capacity to independently eat sufficiently and is dependent on services which she is unable to maintain owing to previous experience. I think she lacks sufficient executive function to live safely independently. Hence, in my opinion she lacks capacity. However, I have reviewed Dr. Chung's note. If her home is arranged in such a way that she is not responsible for any decision making, maybe she would cope at home. However, she would have to have close supervision and her son lives in [place] and doesn't have the transportation to visit his mother frequently in [place]. She requires completion of a detailed evaluation for a safe discharge. Pain in gums (Acute) I think this is due to local pain. I don't think this represents radiation. It likely relates to dental roots. Iron deficiency anemia (Acute) secondary diagnosis Atrial fibrillation (Chronic) regular pulse Essential hypertension (Chronic) on target Hypercholesterolemia (Chronic) secondary diagnosis Infestation by bed bug (Chronic) Relates to the above issues on domestic safety Osteoporosis (Chronic) Thickening of esophagus (Chronic) continue omeprazole Type 2 diabetes mellitus (Chronic) stable I think the consensus from the son, my opinion and the patient herself, I think she would benefit from a more structured situation. I think either a SNF or perhaps assisted living/memory care unit. If she goes home, I think she is in danger of worsening nutrition and starvation with the services that are available. We need to have Dr. Chung complete his evaluation and for OT/PT to see her. We also need to have her son Manuel help with her resources.
[2018-02-24] MEDS: Insulin LISPRO* 1 UNITS UNIT SUBCUT SCH ×3 (08:13→17:13)
[2018-02-24] MEDS: Diltiazem CD CAP* 240 MG PO SCH (09:40)
[2018-02-24] MEDS: Folic Acid TAB* 1 MG PO SCH (09:40)
[2018-02-24] MEDS: Omeprazole CAP* 20 MG PO SCH ×2 (09:41→20:11)
[2018-02-24] MEDS: Docusate CAP* 100 MG PO SCH ×2 (09:41→20:12)
[2018-02-24] MEDS: Apixaban* 2.5 MG TAB PO SCH ×2 (09:42→20:11)
--- NOTE | 2018-02-24 16:41 | CONSULT ---
Consult Consult: Consult for Medical Decision Making Capacity S: Psychiatry returns today to follow up on the question of capacity for this 82 y.o. , white, female [place] immigrant with a history of atrial fibrillation, unexplained weight loss and recent serial readmission to the medical unit here at [facility]. I have reviewed Dr. Goncalves's note from today and it clearly states the position that Ms. Ma would not be safe to return home and that placement in a alf facility would be the indicated intervention. I asked Ms. Ma how she felt about that today and she immediately voiced her objection. "I'll be damned if you're gonna kick me out of the place I have lived for 42 years!" In terms of demonstrating an understanding of the recommended treatment, she knows what a [place] is but seems to think it is a place where she will be allowed to have a car and come and go independently. In terms of understanding the risks of refusing said treatment, she cannot give me any reasons why it might be unsafe to return home. "Nothing's gonna happen. I take care of myself just fine!" Interestingly, when the idea of a [place] in [place] is suggested, she is agreeable. "That would be just great. I could see my son, Manuel." O: the patient is an aging, frail-appearing white female dressed in a patient gown who ambulates with a walker from her bathroom; speech is fluent Colombian with heavy [place] accent; mood is euthymic with full affect; thought process is circumstantial with content fixated on going home; she denies SI or HI; she denies hallucinations; insight and judgment are grossly impaired, given her insistence on going home despite the obvious risks; cognitively she is awake and alert with 19/30 on repeat MMSE A/P: Capacity: the patient is able to partially articulate the nature of the indicated treatment (SNF placement), however, she is not at all able to articulate what the risks would be to refusing that treatment (malnutrition, falling, further infection, ). By definition she lacks capacity to decline [place] placement. Capacity is subject to change and psychiatry can be re-consulted in the event of any significant changes in her presentation. Psychiatry is signing off. Thank you for the interesting consult.
[2018-02-24] MEDS: Acetaminop/Codeine 30 MG TAB* 1 TAB (300 MG/30 MG) PO PRN (20:11)
[2018-02-24] MEDS: Senna TAB PO SCH (20:12)
[2018-02-25] MEDS: ZOSYN 3.375 GM Q8H per EXTENDED INFUSION IVPB SCH ×2 (02:49)
[2018-02-25] MEDS: Insulin LISPRO* 1 UNITS UNIT SUBCUT SCH ×2 (07:35→10:23)
[2018-02-25] MEDS ORDERED: NS 0.9% 100 ML* 100 ML ONE (08:38)
[2018-02-25] MEDS: Apixaban* 2.5 MG TAB PO SCH ×2 (08:41→20:25)
[2018-02-25] MEDS: Omeprazole CAP* 20 MG PO SCH ×2 (08:41→20:25)
[2018-02-25] MEDS: Folic Acid TAB* 1 MG PO SCH (08:41)
[2018-02-25] MEDS: Docusate CAP* 100 MG PO SCH ×2 (08:41→20:42)
[2018-02-25] MEDS: Diltiazem CD CAP* 240 MG PO SCH (08:41)
--- NOTE | 2018-02-25 09:28 | PN ---
Subjective - Subjective Reason for Note: Progress Note History: She is feeling better. She denies abdominal pain, nausea and vomiting. She is eating well and walking with a walker. 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 Type 2 diabetes mellitus (Chronic) Weight loss (Chronic) Current Medications: Current Medications Acetaminophen (Tylenol Tab*) 650 mg PO Q4H PRN PRN Reason: FEVER/PAIN Last Admin: 02/24/18 03:53 Dose: 650 mg Acetaminophen/Codeine Phosphate (Tylenol/Codeine 30 Mg Tab*) 1 tab PO Q6H PRN PRN Reason: PAIN - MODERATE TO SEVERE Last Admin: 02/24/18 20:11 Dose: 1 tab Apixaban (Eliquis) 2.5 mg PO BID [facility] Last Admin: 02/25/18 08:41 Dose: 2.5 mg Dextrose (D50w Syringe 50 Ml*) 12.5 gm IV PUSH .FOR FS < 60 - SS PRN PRN Reason: FS < 60 Diltiazem HCl (Cardizem Cd Cap*) 240 mg PO DAILY [facility] Last Admin: 02/25/18 08:41 Dose: 240 mg Docusate Sodium (Colace Cap*) 100 mg PO BID [facility] Last Admin: 02/25/18 08:41 Dose: Not Given Folic Acid (Folvite Tab*) 1 mg PO DAILY [facility] Last Admin: 02/25/18 08:41 Dose: 1 mg Piperacillin Sod/Tazobactam (Sod 3.375 gm/ Sodium Chloride) 100 mls @ 25 mls/ hr IVPB Q8H [facility] Last Admin: 02/25/18 02:49 Dose: 25 mls/hr Insulin Human Lispro (Humalog*) 0 units SUBCUT [facility]; Protocol Last Admin: 02/25/18 07:35 Dose: Not Given Omeprazole (Prilosec Cap*) 20 mg PO BID [facility] Last Admin: 02/25/18 08:41 Dose: 20 mg Ondansetron HCl (Zofran Inj*) 4 mg IV Q6H PRN PRN Reason: NAUSEA Last Admin: 02/24/18 20:11 Dose: 4 mg Pharmacy Consult (Zosyn Per Pharmacy*) 1 note FOLLOW UP .ZOSYN PER PHARMACY [facility] Senna (Senokot Tab*) 2 tab PO BEDTIME [facility] Last Admin: 02/24/18 20:12 Dose: Not Given Home Medications: Home Medications Medication Instructions Recorded Confirmed Type Cyanocobalamin INJ * [Vitamin B12 1,000 mcg INJ WEEKLY 12/25/17 02/21/18 History INJ *] Acetaminophen TAB* [Tylenol TAB*] 650 mg PO Q6H PRN tab 02/16/18 02/21/18 Rx Apixaban* [Eliquis*] 2.5 mg PO BID #60 tab 02/16/18 02/21/18 Rx Omeprazole CAP* [Prilosec CAP* 20 20 mg PO BID cap.dr 02/16/18 02/21/18 Rx MG] dilTIAZem HCl [Diltiazem 24Hr ER] 240 mg PO DAILY #30 tab.er.24h 02/16/18 Rx Famotidine TAB* [Pepcid 20 MG TAB*] 20 mg PO BID #40 tab 02/18/18 02/21/18 Rx Ondansetron TAB* [Zofran 4 MG Tab*] 4 mg PO Q6H PRN #15 tab 02/18/18 02/21/18 Rx Allergies: Allergies Allergy/AdvReac Type Severity Reaction Status Date / Time No Known Allergies Allergy Verified 02/13/18 15:50 Objective - Vital Signs Vital Signs: Vital Signs 02/24/18 02/24/18 02/24/18 10:07 15:49 19:00 Temperature 98.0 F 98.0 F Pulse Rate 62 85 Respiratory 18 16 18 Rate Blood Pressure 116/52 110/89 (mmHg) O2 Sat by Pulse 99 100 Oximetry 02/24/18 02/24/18 02/24/18 20:11 22:45 23:56 Temperature 98.0 F Pulse Rate 74 Respiratory 18 18 20 Rate Blood Pressure 118/62 (mmHg) O2 Sat by Pulse 100 Oximetry 02/25/18 02/25/18 07:28 07:36 Temperature 98.0 F Pulse Rate 61 Respiratory 16 16 Rate Blood Pressure 114/55 (mmHg) O2 Sat by Pulse 99 Oximetry - Intake and Output Intake and Output: Intake & Output 02/22/18 02/23/18 02/24/18 02/25/18 11:59 11:59 11:59 11:59 Intake Total 2604 890 8684 635 Output Total 200 400 300 950 Balance 1495 60 1015 -315 Weight 93 lb 12.8 oz 93 lb 12.8 oz Intake: IV Fluids 1175 120 116 Zosyn 116 IVPB 100 515 229 Zosyn 515 229 Oral 520 240 800 290 Output: Urine 200 400 300 950 Other: Estimated Void Large Large Date of Last Bowel 02/24/18 Movement # Bowel Movements 1 1 1 0 Estimated Stool Amount Small Small Small Medium # Voids 1 3 0 ADLs: Meal Record Start: 02/21/18 18: 52 Freq: DAILY@0900,1400,1800 Status: Active Protocol: Created 02/21/18 18:52 System (Rec: 02/21/18 18:52 System TELE-C03) Document 02/22/18 09:00 [id number] (Rec: 02/22/18 12:29 [id number] TELE-C01) Document 02/22/18 14:00 [id number] (Rec: 02/22/18 14:39 [id number] TELE-M15) Document 02/22/18 19:52 [id number] (Rec: 02/22/18 19:52 [id number] TELE-C01) Document 02/23/18 09:00 [id number] (Rec: 02/23/18 11:21 [id number] TELE-C08) Document 02/23/18 14:00 [id number] (Rec: 02/23/18 15:23 [id number] TELE-C01) Document 02/23/18 21:13 [id number] (Rec: 02/23/18 21:13 [id number] TELE-C13) Document 02/24/18 09:00 [id number] (Rec: 02/24/18 10:12 [id number] TELE-C01) Document 02/24/18 14:00 [id number] (Rec: 02/24/18 14:06 [id number] TELE-C01) Document 02/24/18 18:20 [id number] (Rec: 02/24/18 18:21 [id number] TELE-C01) Intake and Output Start: 02/21/18 12: 12 Freq: Status: Active Protocol: Created 02/21/18 12:12 System (Rec: 02/21/18 12:12 System ED-C23) Intake and Output Start: 02/21/18 18: 52 Freq: DAILY@0600,1400,2200 Status: Active Protocol: Created 02/21/18 18:52 System (Rec: 02/21/18 18:52 System TELE-C03) Document 02/21/18 21:21 [id number] (Rec: 02/21/18 21:22 [id number] TELE-C01) Document 02/22/18 06:00 [id number] (Rec: 02/22/18 06:51 [id number] TELE-C05) Document 02/22/18 14:00 [id number] (Rec: 02/22/18 14:40 [id number] TELE-M15) Document 02/22/18 22:06 [id number] (Rec: 02/22/18 22:07 [id number] TELE-C09) Document 02/23/18 06:20 [id number] (Rec: 02/23/18 06:21 [id number] TELE-C10) Document 02/23/18 14:00 [id number] (Rec: 02/23/18 15:23 [id number] TELE-C01) Document 02/23/18 21:57 [id number] (Rec: 02/23/18 22:00 [id number] TELE-C13) Document 02/24/18 06:00 [id number] (Rec: 02/24/18 06:12 [id number] TELE-C05) Document 02/24/18 14:00 [id number] (Rec: 02/24/18 14:06 [id number] TELE-C01) Document 02/24/18 21:29 [id number] (Rec: 02/24/18 21:30 [id number] TELE-C08) Document 02/25/18 05:42 [id number] (Rec: 02/25/18 05:42 [id number] TELE-C34) - Physical Exam General: No Cyanosis, No Anemia, No Jaundice, No Clubbing Lungs and Chest: Yes: Chest Expansion Full, Chest Expansion Symetrica, Percussion Note Resonant, Vessicular Breath Sounds. No: Crackles, Wheezes Heart Rate and Rhythm: Regular Additional Cardiovascular: Yes: Normal Heart Sounds. No: Heart Murmur, Pedal Edema Abdominal Exam: Yes: Soft. No: Distention, Abdominal Tenderness, Guarding, Rebound Tenderness Results - Results Lab Results: Laboratory Results - last 24 hr 02/24/18 02/24/18 02/24/18 06:03 11:53 16:52 Sodium 140 Potassium 3.7 Chloride 111 Carbon Dioxide 22 Anion Gap 7 BUN 8 Creatinine 0.82 Est GFR ( Amer) 80.4 Est GFR (Non-Af Amer) 66.4 BUN/Creatinine Ratio 9.8 Glucose 99 POC Glucose (mg/dL) 119 H 131 H Calcium 7.8 L Troponin I 0.00 02/25/18 07:29 Sodium Potassium Chloride Carbon Dioxide Anion Gap BUN Creatinine Est GFR ( Amer) Est GFR (Non-Af Amer) BUN/Creatinine Ratio Glucose POC Glucose (mg/dL) 93 Calcium Troponin I Assessment - Problem List Assessment: Patient Problems History of abdominal pain (Acute) History of nausea and vomiting (Acute) Iron deficiency anemia (Acute) Memory deficits (Acute) Pain in gums (Acute) Starvation due to lack of food (Acute) Atrial fibrillation (Chronic) Essential hypertension (Chronic) Hypercholesterolemia (Chronic) Infestation by bed bug (Chronic) Osteoporosis (Chronic) Thickening of esophagus (Chronic) Type 2 diabetes mellitus (Chronic) Weight loss (Chronic) Plan: History of abdominal pain (Acute)History of nausea and vomiting (Acute) This has resolved and I have stopped her antibacterials. Starvation due to lack of food (Acute) Memory deficits (Acute) Infestation by bed bug (Chronic) Weight loss (Chronic) She has a dementia and was evaluated by Dr. Chung. She has failed to thrive at home as she is not aware she is not eating. She has a good appetite, but lacks the executive function to obtain a stable and reliable food supply. In addition, she is unable to manage her own home or maintain a social structure to help - she is a victim of self-neglect. There is no safe plan of discharge home. She lacks capacity to decline [facility] placement both in Dr. Chung's opinion and my medical opinio Pain in gums (Acute) improved Atrial fibrillation (Chronic) regular pulse today Essential hypertension (Chronic) controlled Type 2 diabetes mellitus (Chronic) controlled. She is excited about the idea of going to [facility] as it is close to her son Manuel. She is accepting this is a good situation for her, but denies there is any problem with going home. We will continue to extol the virtues of [facility] placement.
[2018-02-25] MEDS: Acetaminop/Codeine 30 MG TAB* 1 TAB (300 MG/30 MG) PO PRN (18:05)
[2018-02-25] MEDS: Acetaminophen TAB* 325 MG PO PRN (20:24)
[2018-02-25] MEDS: Senna TAB PO SCH (20:43)
[2018-02-26] MEDS: Omeprazole CAP* 20 MG PO SCH ×2 (08:17→21:44)
[2018-02-26] MEDS: Folic Acid TAB* 1 MG PO SCH (08:17)
[2018-02-26] MEDS: Docusate CAP* 100 MG PO SCH ×2 (08:17→21:44)
[2018-02-26] MEDS: Diltiazem CD CAP* 240 MG PO SCH (08:17)
[2018-02-26] MEDS: Apixaban* 2.5 MG TAB PO SCH ×2 (08:17→21:44)
[2018-02-26] MEDS: Insulin LISPRO* 1 UNITS UNIT SUBCUT SCH (08:24)
--- NOTE | 2018-02-26 10:06 | PN ---
Subjective - Subjective Reason for Note: Progress Note History: She is feeling well today. She has no abdominal pain, nausea or vomiting. Her gum pain has improved. Her appetite is good 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 Type 2 diabetes mellitus (Chronic) Weight loss (Chronic) Current Medications: Current Medications Acetaminophen (Tylenol Tab*) 650 mg PO Q4H PRN PRN Reason: FEVER/PAIN Last Admin: 02/25/18 20:24 Dose: 650 mg Acetaminophen/Codeine Phosphate (Tylenol/Codeine 30 Mg Tab*) 1 tab PO Q6H PRN PRN Reason: PAIN - MODERATE TO SEVERE Last Admin: 02/25/18 18:05 Dose: 1 tab Apixaban (Eliquis) 2.5 mg PO BID [facility] Last Admin: 02/26/18 08:17 Dose: 2.5 mg Dextrose (D50w Syringe 50 Ml*) 12.5 gm IV PUSH .FOR FS < 60 - SS PRN PRN Reason: FS < 60 Diltiazem HCl (Cardizem Cd Cap*) 240 mg PO DAILY [facility] Last Admin: 02/26/18 08:17 Dose: 240 mg Docusate Sodium (Colace Cap*) 100 mg PO BID [facility] Last Admin: 02/26/18 08:17 Dose: 100 mg Folic Acid (Folvite Tab*) 1 mg PO DAILY [facility] Last Admin: 02/26/18 08:17 Dose: 1 mg Insulin Human Lispro (Humalog*) 0 units SUBCUT QAM [facility]; Protocol Last Admin: 02/26/18 08:24 Dose: Not Given Omeprazole (Prilosec Cap*) 20 mg PO BID [facility] Last Admin: 02/26/18 08:17 Dose: 20 mg Ondansetron HCl (Zofran Inj*) 4 mg IV Q6H PRN PRN Reason: NAUSEA Last Admin: 02/24/18 20:11 Dose: 4 mg Senna (Senokot Tab*) 2 tab PO BEDTIME [facility]ER[facility] Last Admin: 02/25/18 20:43 Dose: Not Given Home Medications: Home Medications Medication Instructions Recorded Confirmed Type Cyanocobalamin INJ * [Vitamin B12 1,000 mcg INJ WEEKLY 12/25/17 02/21/18 History INJ *] Acetaminophen TAB* [Tylenol TAB*] 650 mg PO Q6H PRN tab 02/16/18 02/21/18 Rx Apixaban* [Eliquis*] 2.5 mg PO BID #60 tab 02/16/18 02/21/18 Rx Omeprazole CAP* [Prilosec CAP* 20 20 mg PO BID cap.dr 02/16/18 02/21/18 Rx MG] dilTIAZem HCl [Diltiazem 24Hr ER] 240 mg PO DAILY #30 tab.er.24h 02/16/18 Rx Famotidine TAB* [Pepcid 20 MG TAB*] 20 mg PO BID #40 tab 02/18/18 02/21/18 Rx Ondansetron TAB* [Zofran 4 MG Tab*] 4 mg PO Q6H PRN #15 tab 02/18/18 02/21/18 Rx Allergies: Allergies Allergy/AdvReac Type Severity Reaction Status Date / Time No Known Allergies Allergy Verified 02/13/18 15:50 Objective - Vital Signs Vital Signs: Vital Signs 02/25/18 02/25/18 02/25/18 15:29 18:05 20:00 Temperature 98.1 F Pulse Rate 80 Respiratory 17 16 18 Rate Blood Pressure 113/61 (mmHg) O2 Sat by Pulse 99 Oximetry 02/25/18 02/25/18 02/25/18 20:02 20:26 23:48 Temperature 98.8 F 98.4 F Pulse Rate 76 66 Respiratory 17 18 20 Rate Blood Pressure 119/52 131/62 (mmHg) O2 Sat by Pulse 100 99 Oximetry 02/26/18 02/26/18 07:49 07:50 Temperature 97.5 F Pulse Rate 66 Respiratory 16 16 Rate Blood Pressure 123/57 (mmHg) O2 Sat by Pulse 100 Oximetry - Intake and Output Intake and Output: Intake & Output 02/23/18 02/24/18 02/25/18 11/11/18 11:59 11:59 11:59 11:59 Intake Total 460 9428 976 7310 Output Total 840 336 9844 1000 Balance 60 1015 -355 260 Weight 93 lb 12.8 oz Intake: IV Fluids 120 116 Zosyn 116 IVPB 100 515 229 Zosyn 515 229 Oral 240 605 863 9894 Output: Urine 383 122 2109 1000 Other: Estimated Void Large Large Date of Last Bowel 02/24/18 Movement # Bowel Movements 1 1 0 0 Estimated Stool Amount Small Small Medium # Voids 1 3 0 0 ADLs: Meal Record Start: 02/21/18 18: 52 Freq: DAILY@0900,1400,1800 Status: Active Protocol: Created 02/21/18 18:52 System (Rec: 02/21/18 18:52 System TELE-C03) Document 02/22/18 09:00 [id number] (Rec: 02/22/18 12:29 [id number] TELE-C01) Document 02/22/18 14:00 [id number] (Rec: 02/22/18 14:39 [id number] TELE-M15) Document 02/22/18 19:52 [id number] (Rec: 02/22/18 19:52 [id number] TELE-C01) Document 02/23/18 09:00 ZRA1243 (Rec: 02/23/18 11:21 [id number] TELE-C08) Document 02/23/18 14:00 [id number] (Rec: 02/23/18 15:23 [id number] TELE-C01) Document 02/23/18 21:13 [id number] (Rec: 02/23/18 21:13 JRP5055 TELE-C13) Document 02/24/18 09:00 FVP1436 (Rec: 02/24/18 10:12 [id number] TELE-C01) Document 02/24/18 14:00 XVT1142 (Rec: 02/24/18 14:06 BLF2301 TELE-C01) Document 02/24/18 18:20 [id number] (Rec: 02/24/18 18:21 GVO8526 TELE-C01) Document 02/25/18 09:00 PBB5024 (Rec: 02/25/18 11:30 [id number] TELE-C01) Document 02/25/18 12:48 [id number] (Rec: 02/25/18 12:48 FSE8670 TELE-M02) Document 02/25/18 18:00 SEA8767 (Rec: 02/25/18 22:23 ILP3775 TELE-M03) Intake and Output Start: 02/21/18 12: 12 Freq: Status: Active Protocol: Created 02/21/18 12:12 System (Rec: 02/21/18 12:12 System ED-C23) Intake and Output Start: 02/21/18 18: 52 Freq: DAILY@0600,1400,2200 Status: Active Protocol: Created 02/21/18 18:52 System (Rec: 02/21/18 18:52 System TELE-C03) Document 02/21/18 21:21 MVV9040 (Rec: 02/21/18 21:22 [id number] TELE-C01) Document 02/22/18 06:00 TBL2781 (Rec: 02/22/18 06:51 ENX6611 TELE-C05) Document 02/22/18 14:00 RJO4121 (Rec: 02/22/18 14:40 [id number] TELE-M15) Document 02/22/18 22:06 NFF4125 (Rec: 02/22/18 22:07 MKY0714 TELE-C09) Document 02/23/18 06:20 TTP4283 (Rec: 02/23/18 06:21 [id number] TELE-C10) Document 02/23/18 14:00 YLS0252 (Rec: 02/23/18 15:23 [id number] TELE-C01) Document 02/23/18 21:57 MUF4220 (Rec: 02/23/18 22:00 [id number] TELE-C13) Document 02/24/18 06:00 CXX1916 (Rec: 02/24/18 06:12 COD0892 TELE-C05) Document 02/24/18 14:00 FCW2963 (Rec: 02/24/18 14:06 IYX4166 TELE-C01) Document 02/24/18 21:29 FHN9591 (Rec: 02/24/18 21:30 [id number] TELE-C08) Document 02/25/18 05:42 [id number] (Rec: 02/25/18 05:42 [id number] TELE-C34) Document 02/25/18 09:54 JGS7320 (Rec: 02/25/18 09:54 EVE8816 TELE-C02) Document 02/25/18 14:00 ZFQ8535 (Rec: 02/25/18 14:26 CIQ2337 TELE-C01) Document 02/25/18 22:00 TLN2662 (Rec: 02/25/18 22:19 EIS4584 TELE-C11) Document 02/26/18 00:28 [id number] (Rec: 02/26/18 00:28 UJA3756 TELE-C34) Document 02/26/18 06:00 [id number] (Rec: 02/26/18 06:04 [id number] TELE-C34) Results - Results Lab Results: Laboratory Results - last 24 hr 02/26/18 07:41 POC Glucose (mg/dL) 97 Assessment - Problem List Assessment: Patient Problems History of abdominal pain (Acute) History of nausea and vomiting (Acute) Iron deficiency anemia (Acute) Memory deficits (Acute) Pain in gums (Acute) Starvation due to lack of food (Acute) Atrial fibrillation (Chronic) Essential hypertension (Chronic) Hypercholesterolemia (Chronic) Infestation by bed bug (Chronic) Osteoporosis (Chronic) Thickening of esophagus (Chronic) Type 2 diabetes mellitus (Chronic) Weight loss (Chronic) Plan: She has recovered from the acute GI problems and high WBC that bought her into the hospital. She has a plan of discharge to [facility] tomorrow if they have a bed. She is happy with that plan. Hypertension and T2D on target
[2018-02-26] MEDS: Acetaminophen TAB* 325 MG PO PRN (15:39)
[2018-02-26] MEDS: Senna TAB PO SCH (21:44)
[2018-02-27] MEDS: Acetaminophen TAB* 325 MG PO PRN (00:34)
[2018-02-27 07:55] VITALS: BP 140/61
[2018-02-27] MEDS: Diltiazem CD CAP* 240 MG PO SCH (08:42)
[2018-02-27] MEDS: Folic Acid TAB* 1 MG PO SCH (08:42)
[2018-02-27] MEDS: Omeprazole CAP* 20 MG PO SCH (08:42)
[2018-02-27] MEDS: Docusate CAP* 100 MG PO SCH (08:42)
[2018-02-27] MEDS: Insulin LISPRO* 1 UNITS UNIT SUBCUT SCH (08:42)
[2018-02-27] MEDS: Apixaban* 2.5 MG TAB PO SCH (08:42)
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
== END 2018-02-27 11:30 | DRG 392 ==
LOC: ED 12:03 → MEDTELE 18:00 → OBSVTOIN 02-23 07:45
PROVIDERS: ADMIT Internal Medicine; ATTEND Internal Medicine
DX: R10.9 Unspecified abdominal pain (principal); Z68.1 Body mass index [BMI] 19.9 or less, adult; K22.10 Ulcer of esophagus without bleeding; I48.91 Unspecified atrial fibrillation; F02.80 Dementia in other diseases classified elsewhere, unspecified severity, without behavioral disturbance, psychotic disturbance, mood disturbance, and anxiety; R11.2 Nausea with vomiting, unspecified; R63.4 Abnormal weight loss; G31.84 Mild cognitive impairment of uncertain or unknown etiology; T73.0XXA Starvation, initial encounter; X58.XXXA Exposure to other specified factors, initial encounter; R62.7 Adult failure to thrive; K59.09 Other constipation; I10 Essential (primary) hypertension; M81.0 Age-related osteoporosis without current pathological fracture; I49.1 Atrial premature depolarization; E11.9 Type 2 diabetes mellitus without complications; D64.9 Anemia, unspecified; I44.0 Atrioventricular block, first degree; Z79.01 Long term (current) use of anticoagulants; Z79.1 Long term (current) use of non-steroidal anti-inflammatories (NSAID); Z79.899 Other long term (current) drug therapy; Z87.891 Personal history of nicotine dependence; Z80.9 Family history of malignant neoplasm, unspecified; E78.5 Hyperlipidemia, unspecified; K26.9 Duodenal ulcer, unspecified as acute or chronic, without hemorrhage or perforation; D50.9 Iron deficiency anemia, unspecified; T14.8XXA Other injury of unspecified body region, initial encounter; K13.79 Other lesions of oral mucosa
CPT/HCPCS: 36415; 71045; 74177; 76705; 78226; 80048; 80053; 80076; 80320; 81003; 82607; 82746; 83036; 83605; 83690; 83735; 84145; 84443; 84484; 85025; 85610; 85652; 86140; 87040; 93005; 99284; A9270-GY; A9537; G0378; G0480; G8978-GP-CH; G8979-GP-CH; G8980-GP-CH; G8987-GO-CI; G8988-GO-CI; G8989-GO-CI; J0780; J2405; J2543; J3480; Q9967

== ENCOUNTER 2021-01-23 17:06 | Observation (INO) ==
[2021-01-23 17:51] LABS: Hematocrit 31 % (35-47); Hemoglobin 10.1 g/dL (12.0-16.0); Mean Corpuscular HGB Conc 33 g/dL (31-36); Mean Corpuscular Hemoglobin 25 pg (27-31); Mean Corpuscular Volume 78 fL (80-97); Mean Platelet Volume 6.9 fL (7.4-10.4); Platelet Count 545 10^3/uL (150-450); Red Blood Count 3.98 10^6 /uL (3.70-4.87); Red Cell Distribution Width 24 % (10-15)
[2021-01-23 18:17] LABS: ABS Basophils 0.1 10^3/ul (0-0.2); ABS Eosinophils 0.1 10^3/ul (0-0.6); ABS Lymphocytes 2.3 10^3/ul (1.0-4.8); ABS Monocytes 1.3 10^3/ul (0-0.8); ABS Neutrophils 13.3 10^3/ul (1.5-7.7); Eosinophil % 0.5 %; Lymphocyte % 13.3 %
[2021-01-23 18:21] LABS: Anion Gap 10 mmol/L (2-11); Blood Urea Nitrogen 26 mg/dL (6-24); CO2 Carbon Dioxide 25 mmol/L (22-32); Calcium 8.8 mg/dL (8.6-10.3); Chloride 94 mmol/L (101-111); Glucose 152 mg/dL (70-100); Potassium 3.1 mmol/L (3.5-5.0); Sodium 129 mmol/L (135-145)
[2021-01-23 18:27] LABS: Troponin I 0.06 ng/mL (<0.03)
[2021-01-23] MEDS ORDERED: cefTRIAXone 1 gm/50 mL NS BAG 1 GM/50 ML BAG IV ONE (18:27)
[2021-01-23] MEDS ORDERED: Potassium Chlor 20 meq TAB.ER PO ONE (18:28)
[2021-01-23] MEDS ORDERED: NS 0.9% 1000 ml BAG 1,000 ML IV SCH (18:45)
[2021-01-23 19:02] LABS: ALT 17 U/L (7-52); AST 23 U/L (13-39); Albumin 3.5 g/dL (3.2-5.2); Albumin/Globulin Ratio 1.1 (1-3); Alkaline Phosphatase 70 U/L (35-149); C Reactive Protein 6.91 mg/L (<8.01); Globulin 3.2 g/dL (2-4); Total Protein 6.7 g/dL (6.4-8.9)
[2021-01-23] MEDS ORDERED: Ondansetron 4 mg VIAL 2 MG/ML 2 ml VIAL IV PRN (19:21)
[2021-01-23] MEDS ORDERED: Polyethylene Glycol 3350 17 GM PACKET PO PRN (19:29)
[2021-01-23] MEDS ORDERED: Al Hydrox/Mg Hydrox/Simet LIQ 30 ML UDC PO PRN (19:29)
[2021-01-23 20:33] LABS: % Iron Saturation 7 % (15-55); Iron 24 ug/dL (50-212); Total Iron Binding Capacity 328 mcg/dL (250-450); Transferrin 234 mg/dL (203-362); Unsaturated Iron Binding < 313 ug/dL
[2021-01-23 20:37] LABS: Rapid COVID-19 Molecular Undetected (Undetected)
[2021-01-23 20:55] LABS: Ferritin 25.2 ng/mL (11-307)
[2021-01-23 21:05] LABS: Urine Appearance Cloudy; Urine Bilirubin Negative (Negative); Urine Blood 1+ (Negative); Urine Color Yellow; Urine Glucose Negative (Negative); Urine Ketones Negative (Negative); Urine Nitrite Negative (Negative); Urine Protein Negative (Negative); Urine Specific Gravity 1.006 (1.002-1.030); Urine Urobilinogen Negative (Negative)
[2021-01-23 21:24] LABS: Troponin I 0.06 ng/mL (<0.03)
[2021-01-23 21:26] LABS: Urine Bacteria Absent (Absent); Urine Red Blood Cell Trace(0-2/hpf) (Absent); Urine Squamous Epithelial Cell Present (Absent); Urine White Blood Cell 3+(>20/hpf) (Absent)
[2021-01-23 23:56] LABS: Troponin I 0.05 ng/mL (<0.03)
[2021-01-24] MEDS ORDERED: Senna/Docusate 8.6/50 mg (NF) TAB PO SCH (09:00)
[2021-01-24] MEDS ORDERED: DULoxetine DR 30 mg CAP PO SCH (09:00)
[2021-01-24] MEDS ORDERED: Senna TAB 8.6 mg TAB PO SCH (09:00)
[2021-01-24 09:46] LABS: ABS Eosinophils 0.2 10^3/ul (0-0.6); ABS Lymphocytes 1.4 10^3/ul (1.0-4.8); ABS Monocytes 0.7 10^3/ul (0-0.8); ABS Neutrophils 9.8 10^3/ul (1.5-7.7); Eosinophil % 1.4 %; Hematocrit 31 % (35-47); Hemoglobin 9.9 g/dL (12.0-16.0); Lymphocyte % 11.5 %; Mean Corpuscular HGB Conc 32 g/dL (31-36); Mean Corpuscular Hemoglobin 25 pg (27-31); Mean Corpuscular Volume 79 fL (80-97); Mean Platelet Volume 6.6 fL (7.4-10.4); Platelet Count 525 10^3/uL (150-450); Red Blood Count 3.94 10^6 /uL (3.70-4.87); Red Cell Distribution Width 24 % (10-15); White Blood Count 12.1 10^3/uL (3.5-10.8)
[2021-01-24 10:09] LABS: Albumin 3.4 g/dL (3.2-5.2); Albumin/Globulin Ratio 1.1 (1-3); Calcium 8.4 mg/dL (8.6-10.3); Direct Bilirubin 0.1 mg/dL (0.03-0.18); Indirect Bilirubin 0.2 mg/dL (0.3-1.0); Potassium 3.8 mmol/L (3.5-5.0); Total Bilirubin 0.3 mg/dL (0.2-1.0); Total Protein 6.4 g/dL (6.4-8.9)
[2021-01-24 15:48] VITALS: BP 131/65
[2021-01-24] MEDS ORDERED: cefTRIAXone 1 gm/50 mL NS BAG 1 GM/50 ML BAG IVPB SCH (18:00)
== END 2021-01-24 17:30 ==
LOC: MED 17:06 → ED 17:06 → SUATTDRO 21:44 → MED 22:27
PROVIDERS: ADMIT Internal Medicine; ATTEND Internal Medicine

== ENCOUNTER 2023-04-03 14:16 | Inpatient (IN) ==
[2023-04-03] MEDS ORDERED: Piperacillin/Tazobac 3.375 BAG 3.375 GM/100 ML BAG IV ONE (14:27)
[2023-04-03 14:47] LABS: ABS Lymphocytes 0.3 10^3/uL (1.0-4.8); ABS Monocytes 0.5 10^3/uL (0.0-0.9); ABS Neutrophils 13.1 10^3/uL (1.5-7.6); ABS Nucleated RBC 0.01 10^3/ul; Eosinophil % 0.1 %; Hematocrit 41.7 % (35-45); Hemoglobin 13.1 g/dL (11.5-14.3); Mean Corpuscular Hemoglobin 29.2 pg (27-33); Mean Corpuscular Hgb Conc 31.3 g/dL (31-36); Mean Corpuscular Volume 93.2 fL (80-97); Mean Platelet Volume 7.2 fL (7.5-11.2); Platelet Count 672 10^3/uL (150-450); Red Blood Count 4.48 10^6/uL (3.63-4.92); Red Cell Distribution Width 22.9 % (12-17); White Blood Count 13.9 10^3/uL (3.8-11.8)
[2023-04-03 14:54] LABS: INR 1.39 (0.83-1.13)
[2023-04-03 15:05] LABS: Albumin 3.7 g/dL (3.2-5.2); Albumin/Globulin Ratio 0.7 (1-3); C Reactive Protein 130.87 mg/L (<8.01); Calcium 9.5 mg/dL (8.6-10.3); Creatinine, Serum 1.31 mg/dL (0.51-0.95); Globulin 5.3 g/dL (2-4); Magnesium 2.5 mg/dL (1.9-2.7); Phosphorus 3.1 mg/dL (2.5-5.0); Potassium 4.6 mmol/L (3.5-5.0); Total Bilirubin 0.3 mg/dL (0.2-1.0); eGFR CKD-EPI 38.9 (>60)
[2023-04-03 15:39] LABS: Urine Appearance Cloudy; Urine Bilirubin Negative (Negative); Urine Blood 1+ (Negative); Urine Color Yellow; Urine Glucose 2+(150 mg/dL) (Negative); Urine Ketones Negative (Negative); Urine Nitrite Negative (Negative); Urine Protein 3+(>=500 mg/dL) (Negative); Urine Specific Gravity 1.022 (1.002-1.030); Urine Urobilinogen Negative (Negative)
[2023-04-03 15:50] LABS: Urine Bacteria Absent (Absent); Urine Red Blood Cell 2+(6-10/hpf) (Absent); Urine White Blood Cell 1+(6-10/hpf) (Absent)
[2023-04-03 16:20] LABS: High Sensitivity Troponin 1 Hr 30 pg/mL (<15)
[2023-04-03] MEDS ORDERED: Dextrose 50% Syringe 50 ml 25 GM/50 ML SYRINGE IV PUSH PRN (20:41)
[2023-04-03] MEDS ORDERED: Albuterol/Ipratropium NEB.SOL (2.5/0.5 MG) 3 ML NEB.SOLN INH PRN (20:45)
[2023-04-03 20:56] LABS: Calcium 9.2 mg/dL (8.6-10.3); Creatinine, Serum 1.44 mg/dL (0.51-0.95); Potassium 4.4 mmol/L (3.5-5.0); eGFR CKD-EPI 34.8 (>60)
[2023-04-03] MEDS ORDERED: NS 0.45% 1000 ml BAG 1,000 ML IV SCH (21:00)
[2023-04-03] MEDS: Pantoprazole VIAL 40 MG VIAL IV SCH (21:03)
[2023-04-03] MEDS ORDERED: Azithromycin 500 mg/250 mL NS IVPB ONE (23:00)
[2023-04-04 05:50] LABS: ABS Basophils 0.1 10^3/uL (0.0-0.1); ABS Lymphocytes 0.4 10^3/uL (1.0-4.8); ABS Monocytes 0.3 10^3/uL (0.0-0.9); ABS Neutrophils 13.3 10^3/uL (1.5-7.6); Hematocrit 34.4 % (35-45); Hemoglobin 10.7 g/dL (11.5-14.3); Lymphocyte % 2.9 %; Mean Corpuscular Hemoglobin 28.8 pg (27-33); Mean Corpuscular Hgb Conc 31.1 g/dL (31-36); Mean Corpuscular Volume 92.8 fL (80-97); Mean Platelet Volume 7.1 fL (7.5-11.2); Platelet Count 505 10^3/uL (150-450); Red Blood Count 3.71 10^6/uL (3.63-4.92); Red Cell Distribution Width 22.1 % (12-17); White Blood Count 14.1 10^3/uL (3.8-11.8)
[2023-04-04 07:15] LABS: Calcium 8.6 mg/dL (8.6-10.3); Creatinine, Serum 1.31 mg/dL (0.51-0.95); Potassium 4.4 mmol/L (3.5-5.0); eGFR CKD-EPI 38.9 (>60)
[2023-04-04] MEDS: Pantoprazole VIAL 40 MG VIAL IV SCH ×2 (08:05→20:49)
[2023-04-04] MEDS: cefTRIAXone 1 gm/50 mL D5W 1 GM/50 ML BAG IV SCH (08:06)
[2023-04-04] MEDS: Enoxaparin 30 MG/0.3 ML SYR SUBCUT SCH (10:16)
[2023-04-04 11:08] LABS: Total Protein 7.4 g/dL (6.4-8.9)
[2023-04-04] MEDS ORDERED: Lactated Ringers 1000 ml BAG 1,000 ML IV ONE (11:21)
[2023-04-04 13:45] LABS: Body Fluid Appearance Clear; Body Fluid Color Yellow; Body Fluid Source Pleural Fluid
[2023-04-04 14:21] LABS: Body Fluid Total Nucleated 307 /mcL
[2023-04-04 14:51] LABS: Body Fluid Mono 29 %; Body Fluid Total Cells Counted 200
[2023-04-05 04:41] LABS: ABS Eosinophils 0.1 10^3/uL (0.0-0.5); ABS Lymphocytes 0.7 10^3/uL (1.0-4.8); ABS Monocytes 0.7 10^3/uL (0.0-0.9); ABS Neutrophils 15.8 10^3/uL (1.5-7.6); ABS Nucleated RBC 0.01 10^3/ul; Eosinophil % 0.4 %; Hematocrit 34.1 % (35-45); Hemoglobin 10.7 g/dL (11.5-14.3); Lymphocyte % 3.8 %; Mean Corpuscular Hemoglobin 28.7 pg (27-33); Mean Corpuscular Hgb Conc 31.3 g/dL (31-36); Mean Corpuscular Volume 91.7 fL (80-97); Mean Platelet Volume 7.1 fL (7.5-11.2); Platelet Count 501 10^3/uL (150-450); Red Blood Count 3.72 10^6/uL (3.63-4.92); Red Cell Distribution Width 22.6 % (12-17); White Blood Count 17.3 10^3/uL (3.8-11.8)
[2023-04-05 05:30] LABS: Calcium 8.5 mg/dL (8.6-10.3); Creatinine, Serum 1.09 mg/dL (0.51-0.95); Magnesium 2.2 mg/dL (1.9-2.7); Potassium 3.7 mmol/L (3.5-5.0); eGFR CKD-EPI 48.6 (>60)
[2023-04-05] MEDS ORDERED: KCL 20 MEQ/100 ML IVPREMIX 20 MEQ/100 ML BAG IV ONE (07:30)
[2023-04-05] MEDS: Enoxaparin 30 MG/0.3 ML SYR SUBCUT SCH (08:52)
[2023-04-05] MEDS: Pantoprazole VIAL 40 MG VIAL IV SCH ×2 (08:52→23:10)
[2023-04-05] MEDS: cefTRIAXone 1 gm/50 mL D5W 1 GM/50 ML BAG IV SCH (09:09)
[2023-04-05] MEDS ORDERED: Enoxaparin 30 MG/0.3 ML SYR SUBCUT ONE (10:11)
[2023-04-05 13:51] LABS: Lactate Dehydrogenase, BF 247 U/L
[2023-04-05 14:18] LABS: Fluid Type, Protein, Total Pleural Fluid; Total Protein, BF 5.7 g/dL
[2023-04-06 05:24] LABS: ABS Eosinophils 0.8 10^3/uL (0.0-0.5); ABS Lymphocytes 0.9 10^3/uL (1.0-4.8); ABS Monocytes 0.8 10^3/uL (0.0-0.9); ABS Neutrophils 10.9 10^3/uL (1.5-7.6); ABS Nucleated RBC 0.01 10^3/ul; Eosinophil % 5.6 %; Hemoglobin 11.9 g/dL (11.5-14.3); Lymphocyte % 6.5 %; Mean Corpuscular Hemoglobin 29.5 pg (27-33); Mean Corpuscular Hgb Conc 32.2 g/dL (31-36); Mean Corpuscular Volume 91.6 fL (80-97); Mean Platelet Volume 7.3 fL (7.5-11.2); Nucleated Red Blood Cells % 0.1 %/100WBC (0.0-0.8); Platelet Count 496 10^3/uL (150-450); Red Blood Count 4.04 10^6/uL (3.63-4.92); Red Cell Distribution Width 22.1 % (12-17); White Blood Count 13.3 10^3/uL (3.8-11.8)
[2023-04-06 05:43] LABS: Calcium 8.5 mg/dL (8.6-10.3); Creatinine, Serum 1.04 mg/dL (0.51-0.95); Potassium 3.6 mmol/L (3.5-5.0); eGFR CKD-EPI 51.4 (>60)
[2023-04-06] MEDS: Enoxaparin 30 MG/0.3 ML SYR SUBCUT SCH (09:14)
[2023-04-06] MEDS: Pantoprazole VIAL 40 MG VIAL IV SCH (09:15)
[2023-04-06] MEDS ORDERED: Enoxaparin 60 MG/0.6 ML SYR SUBCUT SCH (10:00)
[2023-04-06] MEDS: cefTRIAXone 1 gm/50 mL D5W 1 GM/50 ML BAG IV SCH (11:18)
[2023-04-07 06:53] LABS: ABS Eosinophils 0.8 10^3/uL (0.0-0.5); ABS Monocytes 0.7 10^3/uL (0.0-0.9); ABS Neutrophils 9.2 10^3/uL (1.5-7.6); Eosinophil % 6.9 %; Hematocrit 36.1 % (35-45); Hemoglobin 11.5 g/dL (11.5-14.3); Lymphocyte % 8.2 %; Mean Corpuscular Hemoglobin 28.9 pg (27-33); Mean Corpuscular Hgb Conc 31.8 g/dL (31-36); Mean Corpuscular Volume 90.7 fL (80-97); Mean Platelet Volume 7.4 fL (7.5-11.2); Platelet Count 403 10^3/uL (150-450); Red Blood Count 3.97 10^6/uL (3.63-4.92); Red Cell Distribution Width 21.4 % (12-17); White Blood Count 11.7 10^3/uL (3.8-11.8)
[2023-04-07 07:09] LABS: Calcium 7.7 mg/dL (8.6-10.3); Magnesium 1.7 mg/dL (1.9-2.7); Potassium 3.6 mmol/L (3.5-5.0); eGFR CKD-EPI 53.9 (>60)
[2023-04-07 10:06] VITALS: BP 124/58
[2023-04-07] MEDS: Enoxaparin 30 MG/0.3 ML SYR SUBCUT SCH (10:07)
== END 2023-04-07 16:47 | DRG 186 ==
LOC: ED 14:16 → SUATTDRO 19:37 → EDHOLD 19:37 → ICU 21:15 → MEDTELE 04-05 18:54
PROVIDERS: ADMIT Internal Medicine; ATTEND Hospitalist